=== PATIENT | male | born 1995 | race Caucasian/White ===

== ENCOUNTER 2017-11-23 19:21 | Emergency (ER) | payer OTHER ==
[~2017-11-23] VITALS: Ht 175.3 cm; Wt 110.0 kg
[~2017-11-23 19:21] MED LIST: HYDR-3126 PO
[2017-11-23 19:24] VITALS: BP 146/77; PULSE 128; TEMP 37.1; O2SAT 92; Ht 175.3 cm; Wt 110.0 kg
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
== END 2017-11-23 19:58 | disposition home or self-care (01) ==
LOC: C.EDB 19:22 → C.EDD 19:58
DX: S62.396A Other fracture of fifth metacarpal bone, right hand, initial encounter for closed fracture (principal); W22.8XXA Striking against or struck by other objects, initial encounter; Y93.89 Activity, other specified; Y99.8 Other external cause status; Z72.0 Tobacco use; Z98.818 Other dental procedure status

== ENCOUNTER 2017-11-26 01:18 | Emergency (ER) | payer OTHER ==
[~2017-11-26] VITALS: Ht 175.3 cm; Wt 109.8 kg
[2017-11-26 01:25] VITALS: TEMP 37.2; Ht 175.3 cm; Wt 109.8 kg
--- NOTE | 2017-11-26 02:32 | EMERGENCY ROOM VISIT NOTE ---
History First contact with patient: 01:24 Chief Complaint: HAND PAIN/INJURY Stated Complaint: RT HAND BROKEN - FINGERS TURNING BLACK AND BLUE History of Present Illness The patient is a 22 year old male who presents to the Emergency Room with complaints of increasing hand pain and swelling with bruising for the past day who broke his hand 2 days ago and was casted yesterday by orthopedics. Patient has not been elevating his hand. He remains increasing pain and swelling to the 4 fingers. He went to [facility]. He is unsure the orthopedic doctor that he saw. Patient states that they did not realign the fracture.he occasionally has subjective decreased sensation to the fingers but cannot feel them now okay. Patient denies new injury, loss of complete sensation, rating pain of the arm, fever, chills. He states he can move all fingers. Review of Systems A 6 system review of systems was completed with positives and pertinent negatives listed in the HPI. Past Medical/Surgical History Medical Problems: (1) Anxiety (2) Puncture wound of hand Surgical Problems: (1) [place] teeth extracted Social History Smoking Status: Current Every Day Smoker Housing Status: lives with family Occupation Status: employed Current/Historical Medications Scheduled Hydroxyzine Hcl (Atarax), 50 MG PO TID Physical Exam Vital Signs Date Time Temp Pulse Resp B/P (MAP) Pulse Ox O2 Delivery O2 Flow Rate FiO2 11/26/18 01:25 37.2 107 18 134/67 94 Room Air Physical Exam VITALS: Vitals are noted on the nurse's note and reviewed by myself. Vital signs stable. GENERAL: Pleasant male, in no acute distress, nondiaphoretic, well-developed well-nourished. SKIN: Capillary reflex less than 2 seconds. HEENT: Normocephalic. PERRLA. EOMI. Nares patent. Mucous membranes moist. MUSCULOSKELETAL: No gross musculoskeletal defects. There is no deformity of the right hand. There is tenderness over the fifth metacarpal where the fractures that. There is no thenar or hypothenar eminence atrophy. Normal thumb opposition to all fingers. Normal abduction and adduction to resistance of the fingers. There is no laceration. Capillary refill less than 3 seconds. No tenderness of the fingers or wrist. Full range of motion of the wrist. No snuff box tenderness. Radial pulse 2+. NEURO: Patient was alert and oriented to person place and time. Normal sensation to light and sharp touch. No focal neurological deficits. Medical Decision & Procedures ED Course Prior records reviewed and summarized above. Triage Nursing notes reviewed. Additional history obtained from the family. The patient's history was concerning for swelling and pain in the hand with recent fracture Differential diagnosis: Etiologies such as compartment syndrome, DVT, musculoskeletal, infection, joint effusion, trauma, lymphedema, contusion, as well as others were entertained.. Physical examination: The physical examination revealed no signs of infection. Neurovascularly intact. ER treatment provided: Cast was removed by the ct scan special procedures technologist. Full hand exam was performed as above. Patient had no signs or symptoms of compartment syndrome. He was neurovascularly intact. The cast was reapplied and neurovascular status was rechecked after placement is intact. Sling was placed. Neurovascular status is rechecked and is intact. He was advised to follow-up this week with his orthopedic doctor for a new cast and for reevaluation or here in the ER sooner for severe pain, numbness, tingling, worsening signs or symptoms or as needed. He was informed to elevate the arm. He was informed to do range of motion exercises of the arm as not to develop a frozen shoulder. On reassessment the patient felt better. Diagnostics interpreted by me: Imaging studies: Hand x-ray shows persistent fifth metacarpal fracture with improved alignment per my interpretation This appears to be consistent with right hand fracture with contusion and swelling most likely from recent injury. Patient had no signs of compartment syndrome. He was well-appearing. He was neurovascularly and neurologically intact. The cast was removed and the hand is fully inspected and then was replaced. There is no new signs of injury. Neurovascular status was rechecked after placement is intact. He was advised to follow-up this week with his orthopedic doctor for a new cast and for reevaluation or here in the ER sooner for severe pain, numbness, tingling, worsening signs or symptoms or as needed. He was informed to elevate the arm. He was informed to do range of motion exercises of the arm as not to develop a frozen shoulder. By the evaluation outlined above emergent etiologies such as DVT, septic joint, infection, as well as others were deemed relatively unlikely. The pt informed about the findings as listed above. All questions were answered and pleased with the treatment. Return instructions were outlined and the patient was discharged in stable condition. Referral: The patient was referred back to their orthopedic doctor for follow-up in 2 to 3 days for a recheck of the current condition. Medical Decision As above Medication Reconcilliation Current Medication List: was personally reviewed by me Blood Pressure Screening Patient's blood pressure: Normal blood pressure Impression Primary Impression: Contusion of right hand Additional Impression: Right hand fracture Departure Information Dispostion Home / Self-Care Condition GOOD Referrals No Doctor, Assigned (PCP) Patient Instructions My [facility] Additional Instructions DO NOT drive, drink alcohol, operate machinery, or perform dangerous activities today. You were given medications in the ER that can affect your ability to safely function or operate a vehicle. Oxycodone (OxyIR) 5mg: Take 1-2 pills every four hours for breakthrough pain. Avoid alcohol, operating machinery or dangerous equipment, working on ladders or roofs, DRIVING, or situations where being under the influence may be dangerous. It is recommended to use an [id number] stool softener such as Colace, 100mg twice daily while taking this medication to avoid constipation. Ibuprofen(Motrin, Advil) may be used for fever or pain. Use 600mg every six hours as needed. Take with food. Avoid using more than 2400mg in a 24 hour period. Do not use 2400mg per day for more than three consecutive days without physician direction. Prolonged inappropriate use can lead to stomach upset or ulcers. This medication can be taken if you need to drive, work, or perform activities which may be dangerous when taking narcotic pain medication. (AND/OR) Acetaminophen(Tylenol) may be used for fever or pain. Use 1000mg every six hours as needed. Avoid using more than 3000mg in a 24 hour period. This medication can be taken if you need to drive, work, or perform activities which may be dangerous when taking narcotic pain medication. Ice compresses for 20 minutes at a time four times daily for 2-3 days. Use the sling as instructed. Remove your arm from the sling 4-6 times a day and move all the joints around to keep them loose. Rest and elevate your injury. Do not get the splint wet. If your splint feels excessively tight, you have worsening pain, develop numbness or tingling, or your digits appear blue, loosen the hannah wrap. Then reapply the hannah wrap gently without removing the splint. If your symptoms are not quickly relieved return to the ER for re- evaluation. Continue current medications. Return to the ER immediately for any numbness, tingling, severe pain, extreme swelling in the extremity or as needed. Call your Orthopedics tomorrow to arrange follow up for your injury. Problem Qualifiers Primary Impression: Contusion of right hand Encounter type: initial encounter Qualified Codes: S60.221A - Contusion of right hand, initial encounter
[2017-11-26 02:41] VITALS: BP 128/70; PULSE 92; O2SAT 95
--- NOTE | 2017-11-26 07:38 | DIAGNOSTIC IMAGING REPORT ---
RIGHT HAND 3 VIEWS HISTORY: increasing hand pain and swelling, recent fx COMPARISON: Right hand 11/23/2017. FINDINGS: No change in the comminuted and slightly impacted fracture at the neck of the right fifth metacarpal. Soft tissue swelling at the ulnar side of the hand persists. Volar angulation of the fracture remains unchanged. Dorsal hand soft tissue swelling has slightly progressed. No radiopaque foreign bodies. IMPRESSION: No change in the comminuted, slightly impacted, and angulated fracture at the neck of the right fifth metacarpal. Dorsal soft tissue swelling has progressed. Electronically signed by: Enrique Henry M.D. 11/26/2017 7:36 AM Dictated Date/Time: 11/26/2017 7:35 AM
== END 2017-11-26 02:42 | disposition home or self-care (01) ==
LOC: C.EDB 01:20 → C.EDA 02:42
DX: S60.221A Contusion of right hand, initial encounter (principal); S62.91XA Unspecified fracture of right hand, initial encounter for closed fracture; X58.XXXA Exposure to other specified factors, initial encounter; F17.200 Nicotine dependence, unspecified, uncomplicated

== ENCOUNTER 2019-08-12 04:51 | Inpatient (IN) ==
[2019-08-12 05:24] LABS: Basophils # (auto) 0.04 K/uL (0-0.2); Basophils % (auto) 0.2 %; Eosinophils # (auto) 0.22 K/uL (0-0.5); Eosinophils % (auto) 1.2 %; Hemoglobin 15.4 g/dL (14.0-18.0); Immature Granulocytes # (auto) 0.06 K/uL (0.00-0.02); Immature Granulocytes % (auto) 0.3 %; Lymphocytes # (auto) 2.22 K/uL (1.2-3.4); Lymphocytes % (auto) 11.9 %; Mean Corpuscular Hemoglobin 30.7 pg (25-34); Mean Corpuscular Hgb Conc 34.2 g/dL (32-36); Mean Corpuscular Volume 89.6 fL (80-100); Mean Platelet Volume 9.9 fL (7.4-10.4); Monocytes # (auto) 0.69 K/uL (0.11-0.59); Monocytes % (auto) 3.7 %; Neutrophils % (auto) 82.7 %; Platelet Count 195 K/uL (130-400); RDW Standard Deviation 42.2 fL (36.4-46.3); Red Blood Count 5.02 M/uL (4.7-6.1); White Blood Count 18.63 K/uL (4.8-10.8)
[2019-08-12 05:25] LABS: iSTAT Arterial Blood Gas HCO3 26 meg/L (19-24); iSTAT Arterial Blood Gas pCO2 47 mmHg (35-46); iSTAT Arterial Blood Gas pH 7.36 (7.35-7.45); iSTAT Arterial Blood Gas pO2 68 mmHg (80-95); iSTAT Carbon Dioxide 28 mmol/L (24-31); iSTAT Hematocrit 45 % (42-52); iSTAT Hemoglobin 15.3 g/dl (14.0-18.0); iSTAT Potassium 3.4 mmol/L (3.3-5.0); iSTAT Sodium 138 mmol/L (135-144)
[2019-08-12 05:47] LABS: INR 1.1 (0.9-1.1); Prothrombin Time 11.6 Seconds (9.0-12.0)
[2019-08-12 05:51] LABS: Alanine Aminotransferase 55 U/L (12-78); Albumin Level 3.8 gm/dl (3.4-5.0); Aspartate Aminotransferase 18 U/L (15-37); BUN Creatinine Ratio 18.9 (10-20); Blood Urea Nitrogen 18 mg/dl (7-18); Calcium 8.8 mg/dl (8.5-10.1); Carbon Dioxide 28 mmol/L (21-32); Chloride 105 mmol/L (98-107); Creatinine Clr Calc Pharmacy 138.6 ml/min; Est GFR (African American) 127.9; Est GFR (Non-African American) 110.4; Glucose 188 mg/dl (70-99); Lipase 63 U/L (73-393); Magnesium 1.9 mg/dl (1.8-2.4); Potassium 3.4 mmol/L (3.5-5.1); Sodium 139 mmol/L (136-145)
[2019-08-12 05:52] LABS: Amphetamines+Metham, Urine Neg (Neg); Barbiturates, Urine Neg (Neg); Benzodiazepine, Urine Pos (Neg); Cocaine, Urine Neg (Neg); MDMA (Ecstacy), Urine Neg (Neg); Methadone, Urine Neg (Neg); Opiate, Urine Neg (Neg); Phencyclidine, Urine Neg (Neg)
[2019-08-12 05:56] LABS: Albumin Globulin Ratio 1.2 (0.9-2); Alkaline Phosphatase 70 U/L (45-117); Bilirubin,Total 0.4 mg/dl (0.2-1); Globulin 3.3 gm/dl (2.5-4.0); NT Pro B Type Natriuretic Pept 29 pg/ml (0-450); Total Protein 7.1 gm/dl (6.4-8.2); Troponin I < 0.015 ng/ml (0-0.045)
--- NOTE | 2019-08-12 06:13 | Emergency Department Note ---
Entered by Colin Gómez acting as a scribe for History of Present Illness General Chief complaint: Unresponsive Stated complaint: Overdose Time Seen by Provider: 08/12/19 05:07 Source: patient and EMS History of Present Illness Provider complaint: Overdose Onset (ago): hour(s) (Last night) Location: head Severity: similar to prior episodes Pain Consistency: + constant Associated symptoms: + nausea/vomiting The patient is a 24 year old male who presents to the Emergency Room after overdosing late last night. Per EMS, they were called by the patient's roommates after they found him unresponsive in his bed. When EMS arrived on scene the patient was tachypneic in the 40s and he was cyanotic. The patient was sating around 86% on a NRB, per EMS. The patient admits to taking a Percocet and smoking marijuana prior to the episode and per his roommates he was drinking all day. The patient has a history of depression and has made threats about harming himself, but per his roommates he said he would not act on the threats because he loves his roommates too much. The patient adds that he has recently been sick but he is progressively improving. The patient does not take any daily medications. Home Medications Home Medications Medication Instructions Recorded Confirmed Type No Known Home Medications 08/12/19 08/12/19 History Allergies Allergy/AdvReac Type Severity Reaction Status Date / Time No Known Allergies Allergy Unknown Verified 08/12/19 05:33 Past Med/Surg History Medical History Aggressive behavior Major depressive disorder Opiate dependence, continuous Puncture wound of hand (Resolved) Family History Other No pertinent family history in first degree relatives Social History Preferred Language: Setswana [employer]ceiving [employer] Operator Required: No Beliefs That Will Affect Care: None Current Living Situation: Family Feels Safe at Home: Yes Smoking Status: Current every day smoker Tobacco Type: cigarettes and e- cigarettes ; Do You Dip or Chew Tobacco: No ; Hx Alcohol Use: Yes Hx Substance Use: Yes substance use type: marijuana, opiates and unknown Last Used Substance: Just Prior to Arrival Review of Systems See HPI for pertinent positives & negatives. and A total of 10 systems reviewed and were otherwise negative Physical Exam Vital Signs Vital Signs - 24 hr 08/12/19 04:53 08/12/19 05:14 08/12/19 05:16 Temperature 98.1 F Temperature Source Rectal Pulse Rate 87 Pulse Rate [Right Finger] 92 H Pulse Rhythm Regular Pulse Rhythm [Right Finger] Regular Pulse Strength Normal Pulse Strength [Right Finger] Normal Respiratory Rate 43 H 28 H Respiratory Effort / Characteristics Spontaneous Labored Non-Labored Spontaneous Respiratory Depth Respiratory Pattern Regular Blood Pressure 139/92 Blood Pressure [Left Arm] 116/66 Blood Pressure Mean 107 Blood Pressure Mean [Left Arm] 82 Blood Pressure Position Sitting Pulse Oximetry 94 99 96 Oxygen Delivery Method Non-rebreather Non-rebreather Oxymask Oxygen Flow Rate 15 15 10 Sepsis Recent Fever Within 48 Hours No Sepsis Action Taken by Nursing No Action Required Oxygen Flow Rate - Titration 10 Pulse Oximetry Post Tiitration 98 08/12/19 05:26 08/12/19 05:45 08/12/19 06:00 Temperature Temperature Source Pulse Rate Pulse Rate [Right Finger] 94 H 89 Pulse Rhythm Pulse Rhythm [Right Finger] Regular Pulse Strength Pulse Strength [Right Finger] Normal Respiratory Rate 24 22 Respiratory Effort / Characteristics Non-Labored Spontaneous Respiratory Depth Respiratory Pattern Regular Blood Pressure Blood Pressure [Left Arm] 109/61 113/63 Blood Pressure Mean Blood Pressure Mean [Left Arm] 77 79 Blood Pressure Position Pulse Oximetry 93 93 Oxygen Delivery Method Nasal Cannula Non-rebreather Nasal Cannula Nasal Cannula Oxygen Flow Rate 10 4 4 Sepsis Recent Fever Within 48 Hours Sepsis Action Taken by Nursing Oxygen Flow Rate - Titration 4 Pulse Oximetry Post Tiitration 93 08/12/19 06:35 08/12/19 07:23 Temperature Temperature Source Pulse Rate Pulse Rate [Right Finger] 85 79 Pulse Rhythm Pulse Rhythm [Right Finger] Pulse Strength Pulse Strength [Right Finger] Respiratory Rate 20 20 Respiratory Effort / Characteristics Non-Labored Respiratory Depth Normal Respiratory Pattern Blood Pressure Blood Pressure [Left Arm] 103/66 105/61 Blood Pressure Mean Blood Pressure Mean [Left Arm] 78 75 Blood Pressure Position Pulse Oximetry 94 92 Oxygen Delivery Method Nasal Cannula Nasal Cannula Oxygen Flow Rate 4 2 Sepsis Recent Fever Within 48 Hours Sepsis Action Taken by Nursing Oxygen Flow Rate - Titration Pulse Oximetry Post Tiitration GENERAL: Somnolent but arousable, well nourished, no distress, non-toxic EYE EXAM: normal conjunctiva, PERRL and EOM's grossly intact OROPHARYNX: no exudate, no erythema, lips, buccal mucosa, and tongue normal and mucous membranes are dry NECK: supple, no nuchal rigidity, no adenopathy, non-tender LUNGS: Tachypneic. Clear to auscultation with no wheezing, rhonchi or rales. No retractions. Normal chest wall mechanics HEART: no murmurs, S1 normal and S2 normal ABDOMEN: abdomen soft, non-tender, normo-active bowel sounds, no masses, no rebound or guarding. BACK: Back is symmetrical on inspection and there is no deformity, no midline tenderness, no CVA tenderness. SKIN: no rashes and no bruising UPPER EXTREMITIES: upper extremities are grossly normal. FROM, nml pulses b/l. LOWER EXTREMITIES: No pitting edema. FROM, nml pulses b/l. NEURO EXAM: Somnolent but arousable, opens eyes to voice and answers questions, cranial nerves II-XII grossly intact, normal speech, no gross weakness of arms, no gross weakness of legs. Course Course 0451: Past medical records reviewed. The patient was evaluated in room B01, and a complete history and physical examination were performed. 0502: I performed a bedside echo which was normal. No pericardial effusion, normal EPSS. No obvious wall motion abnormality. 0518: I reevaluated the patient and his respiratory rate is down to the 20s with sats at 98%. 0522: I spoke to the patient's sister who states the patient has a history of depression and has previously made suicidal gestures. He also has a history of experimenting with drugs so she is unsure what the motive was tonight. 0602: The psych case resource manager states the sister is willing to write the petition statement. 0700: I checked on the patient and he is resting with stable vitals. 0845: I updated mother at bedside on condition and plan. She is in agreement. 0925: Discussed with [facility] hospitalist group, patient will be evaluated by Dr. Burden. Administered Medications Nicotine (Nicoderm Cq) 21 mg TD Q24H RAOUL Stop: 09/11/19 17:59 Last Admin: 08/12/19 18:23 Dose: 21 mg Documented by: [id number] Discontinued Medications Piperacillin Sod/Tazobactam Sod (Zosyn) 4.5 gm in 120 mls @ 240 mls/hr IV NOW ONE Stop: 08/12/19 06:43 Last Infusion: 08/12/19 07:52 Dose: 0 mls/hr Documented by: [id number] Admin: 08/12/19 07:22 Dose: 240 mls/hr Documented by: [id number] Sodium Chloride (Nss 1000ml) 1,000 mls @ 125 mls/hr IV .Q8H RAOUL Stop: 08/12/19 22:50 Last Infusion: 08/12/19 16:31 Dose: 0 mls/hr Documented by: [id number] Admin: 08/12/19 11:15 Dose: 125 mls/hr Documented by: [id number] Piperacillin Sod/Tazobactam (Sod 3.375 gm/ Dextrose) 115 mls @ 28.75 mls/hr IV Q8H RAOUL; Protocol Stop: 08/19/19 11:59 Last Infusion: 08/12/19 16:31 Dose: 0 mls/hr Documented by: [id number] Admin: 08/12/19 11:48 Dose: 28.8 mls/hr Documented by: [id number] Lactated Ringer's (Lr) 1,000 mls @ 125 mls/hr IV .Q8H RAOUL Stop: 08/13/19 01:29 Last Infusion: 08/13/19 07:55 Dose: 0 mls/hr Documented by: [id number] Admin: 08/13/19 00:27 Dose: 125 mls/hr Documented by: [id number] Infusion: 08/13/19 00:26 Dose: 0 mls/hr Documented by: [id number] Admin: 08/12/19 16:31 Dose: 125 mls/hr Documented by: [id number] Potassium Chloride (Klor-Con M20) 40 meq PO NOW STA Stop: 08/12/19 16:20 Last Admin: 08/12/19 16:50 Dose: 40 meq Documented by: [id number] Medical Decision Making Differential Diagnosis Differential diagnosis: Etiologies such as toxicological process, infection, hypoglycemia, electrolyte abnormalities, cardiac sources, intracerebral event, neurologic process, mood disorder, infection, hypoglycemia, electrolyte abnormalities, cardiac sources, intracerebral event, toxicologic, neurologic, as well as others. Medical Records Attestation: I reviewed the patient's medical records. Home Medications Current Medication List: was personally reviewed by me Laboratory Data Attestation: I reviewed the patient's lab results. Result diagrams: 08/13/19 07:02 08/13/19 07:02 Lab Results 08/12/19 08/12/19 08/12/19 Range/Units 05:08 05:08 05:08 WBC 18.63 H (4.8-10.8) K/uL RBC 5.02 (4.7-6.1) M/uL Hgb 15.4 (14.0-18.0) g/dL POC Hgb (14.0-18.0) g/dl Hct 45.0 (42-52) % POC Hct (42-52) % MCV 89.6 (80-100) fL MCH 30.7 (25-34) pg MCHC 34.2 (32-36) g/dL RDW Std Deviation 42.2 (36.4-46.3) fL RDW Coeff of Osiel 13.0 (11.5-14.5) % Plt Count 195 (130-400) K/uL MPV 9.9 (7.4-10.4) fL Immature Gran % (Auto) 0.3 % Neut % (Auto) 82.7 % Lymph % (Auto) 11.9 % [place]rie % (Auto) 3.7 % Eos % (Auto) 1.2 % Baso % (Auto) 0.2 % Immature Gran # (Auto) 0.06 H (0.00-0.02) K/uL Neut # (Auto) 15.40 H (1.4-6.5) K/uL Lymph # (Auto) 2.22 (1.2-3.4) K/uL [place]rie # (Auto) 0.69 H (0.11-0.59) K/uL Eos # (Auto) 0.22 (0-0.5) K/uL Baso # (Auto) 0.04 (0-0.2) K/uL PT (9.0-12.0) Seconds INR (0.9-1.1) POC pH (7.35-7.45) POC pCO2 (35-46) mmHg POC pO2 (80-95) mmHg POC HCO3 (19-24) daniela/L POC Total CO2 (24-31) mmol/L POC Base Excess (-9-1.8) daniela/L POC Sodium (135-144) mmol/L Sodium 139 (136-145) mmol/L POC Potassium (3.3-5.0) mmol/L Potassium 3.4 L (3.5-5.1) mmol/L Chloride 105 (98-107) mmol/L Carbon Dioxide 28 (21-32) mmol/L Anion Gap 6.0 (3-11) BUN 18 (7-18) mg/dl Creatinine 0.97 (0.6-1.4) mg/dl Est Cr Clr Drug Dosing 138.6 ml/min Est GFR ( Amer) 127.9 Est GFR (Non-Af Amer) 110.4 BUN/Creatinine Ratio 18.9 (10-20) Glucose 188 H (70-99) mg/dl Calcium 8.8 (8.5-10.1) mg/dl Magnesium 1.9 (1.8-2.4) mg/dl Total Bilirubin 0.4 (0.2-1) mg/dl AST 18 (15-37) U/L ALT 55 (12-78) U/L Alkaline Phosphatase 70 (45-117) U/L Troponin I < 0.015 (0-0.045) ng/ml NT-Pro-B Natriuret Pep 29 (0-450) pg/ml Total Protein 7.1 (6.4-8.2) gm/dl Albumin 3.8 (3.4-5.0) gm/dl Globulin 3.3 (2.5-4.0) gm/dl Albumin/Globulin Ratio 1.2 (0.9-2) Lipase 63 L (73-393) U/L Salicylates 2.2 L (2.8-20) mg/dl Urine Opiates Screen (Neg) Ur Methadone, Qual (Neg) Acetaminophen < 2 L (10-30) ug/ml Urine Barbiturates (Neg) Ur Phencyclidine (PCP) (Neg) U Amphetamin/Meth Scrn (Neg) MDMA (Ecstasy) Screen (Neg) U Benzodiazepines Scrn (Neg) Ur Cocaine Metabolite (Neg) U Marijuana (THC) Screen (Neg) Ethyl Alcohol mg/dL (0-3) mg/dl 08/12/19 08/12/19 08/12/19 Range/Units 05:08 05:08 05:09 WBC (4.8-10.8) K/uL RBC (4.7-6.1) M/uL Hgb (14.0-18.0) g/dL POC Hgb 15.3 (14.0-18.0) g/dl Hct (42-52) % POC Hct 45 (42-52) % MCV (80-100) fL MCH (25-34) pg MCHC (32-36) g/dL RDW Std Deviation (36.4-46.3) fL RDW Coeff of Osiel (11.5-14.5) % Plt Count (130-400) K/uL MPV (7.4-10.4) fL Immature Gran % (Auto) % Neut % (Auto) % Lymph % (Auto) % Guthrie % (Auto) % Eos % (Auto) % Baso % (Auto) % Immature Gran # (Auto) (0.00-0.02) K/uL Neut # (Auto) (1.4-6.5) K/uL Lymph # (Auto) (1.2-3.4) K/uL [place]rie # (Auto) (0.11-0.59) K/uL Eos # (Auto) (0-0.5) K/uL Baso # (Auto) (0-0.2) K/uL PT 11.6 (9.0-12.0) Seconds INR 1.1 (0.9-1.1) POC pH 7.36 (7.35-7.45) POC pCO2 47 H (35-46) mmHg POC pO2 68 L (80-95) mmHg POC HCO3 26 H (19-24) daniela/L POC Total CO2 28 (24-31) mmol/L POC Base Excess 1.0 (-9-1.8) daniela/L POC Sodium 138 (135-144) mmol/L Sodium (136-145) mmol/L POC Potassium 3.4 (3.3-5.0) mmol/L Potassium (3.5-5.1) mmol/L Chloride (98-107) mmol/L Carbon Dioxide (21-32) mmol/L Anion Gap (3-11) BUN (7-18) mg/dl Creatinine (0.6-1.4) mg/dl Est Cr Clr Drug Dosing ml/min Est GFR ( Amer) Est GFR (Non-Af Amer) BUN/Creatinine Ratio (10-20) Glucose (70-99) mg/dl Calcium (8.5-10.1) mg/dl Magnesium (1.8-2.4) mg/dl Total Bilirubin (0.2-1) mg/dl AST (15-37) U/L ALT (12-78) U/L Alkaline Phosphatase (45-117) U/L Troponin I (0-0.045) ng/ml NT-Pro-B Natriuret Pep (0-450) pg/ml Total Protein (6.4-8.2) gm/dl Albumin (3.4-5.0) gm/dl Globulin (2.5-4.0) gm/dl Albumin/Globulin Ratio (0.9-2) Lipase (73-393) U/L Salicylates (2.8-20) mg/dl Urine Opiates Screen (Neg) Ur Methadone, Qual (Neg) Acetaminophen (10-30) ug/ml Urine Barbiturates (Neg) Ur Phencyclidine (PCP) (Neg) U Amphetamin/Meth Scrn (Neg) MDMA (Ecstasy) Screen (Neg) U Benzodiazepines Scrn (Neg) Ur Cocaine Metabolite (Neg) U Marijuana (THC) Screen (Neg) Ethyl Alcohol mg/dL < 3.0 (0-3) mg/dl 08/12/19 Range/Units 05:10 WBC (4.8-10.8) K/uL RBC (4.7-6.1) M/uL Hgb (14.0-18.0) g/dL POC Hgb (14.0-18.0) g/dl Hct (42-52) % POC Hct (42-52) % MCV (80-100) fL MCH (25-34) pg MCHC (32-36) g/dL RDW Std Deviation (36.4-46.3) fL RDW Coeff of Osiel (11.5-14.5) % Plt Count (130-400) K/uL MPV (7.4-10.4) fL Immature Gran % (Auto) % Neut % (Auto) % Lymph % (Auto) % Guthrie % (Auto) % Eos % (Auto) % Baso % (Auto) % Immature Gran # (Auto) (0.00-0.02) K/uL Neut # (Auto) (1.4-6.5) K/uL Lymph # (Auto) (1.2-3.4) K/uL Guthrie # (Auto) (0.11-0.59) K/uL Eos # (Auto) (0-0.5) K/uL Baso # (Auto) (0-0.2) K/uL PT (9.0-12.0) Seconds INR (0.9-1.1) POC pH (7.35-7.45) POC pCO2 (35-46) mmHg POC pO2 (80-95) mmHg POC HCO3 (19-24) daniela/L POC Total CO2 (24-31) mmol/L POC Base Excess (-9-1.8) daniela/L POC Sodium (135-144) mmol/L Sodium (136-145) mmol/L POC Potassium (3.3-5.0) mmol/L Potassium (3.5-5.1) mmol/L Chloride (98-107) mmol/L Carbon Dioxide (21-32) mmol/L Anion Gap (3-11) BUN (7-18) mg/dl Creatinine (0.6-1.4) mg/dl Est Cr Clr Drug Dosing ml/min Est GFR ( Amer) Est GFR (Non-Af Amer) BUN/Creatinine Ratio (10-20) Glucose (70-99) mg/dl Calcium (8.5-10.1) mg/dl Magnesium (1.8-2.4) mg/dl Total Bilirubin (0.2-1) mg/dl AST (15-37) U/L ALT (12-78) U/L Alkaline Phosphatase (45-117) U/L Troponin I (0-0.045) ng/ml NT-Pro-B Natriuret Pep (0-450) pg/ml Total Protein (6.4-8.2) gm/dl Albumin (3.4-5.0) gm/dl Globulin (2.5-4.0) gm/dl Albumin/Globulin Ratio (0.9-2) Lipase (73-393) U/L Salicylates (2.8-20) mg/dl Urine Opiates Screen Neg (Neg) Ur Methadone, Qual Neg (Neg) Acetaminophen (10-30) ug/ml Urine Barbiturates Neg (Neg) Ur Phencyclidine (PCP) Neg (Neg) U Amphetamin/Meth Scrn Neg (Neg) MDMA (Ecstasy) Screen Neg (Neg) U Benzodiazepines Scrn Pos H (Neg) Ur Cocaine Metabolite Neg (Neg) U Marijuana (THC) Screen Pos H (Neg) Ethyl Alcohol mg/dL (0-3) mg/dl Imaging Data My Impression: X-ray: I interpreted the following studies. Chest: A single view study of the chest was reviewed and was negative for cardiomegaly, focal infiltrate, effusion, or wide mediastinum. Patient does appear to have pulmonary edema bilaterally, worse on the left. ECG Data Attestation: I personally reviewed and interpreted this ECG as follows: Indication: + toxicologic Rate (beats per minute): 85 Rhythm: + normal sinus ECG Intervals/blocks: + Normal QRS, + Normal RI and + Normal QT-c ECG [place]: + Normal ECG Findings: no PACs and no PVCs Blood Pressure Blood Pressure Findings: Normal blood pressure MDM Narrative Patient brought in as an overdose, initially unclear if this was intentional or accidental. Patient does have a prior history of depression and suicidal gestures, however also has a history of recreational drug abuse. As more information came to light, we were more suspicious of an intentional overdose. Patient sister wrote a 302 petitioning statement. Patient's labs sent, urine sample sent, chest x-ray performed. Patient was initially tachypneic however saturations on the nonrebreather were at 96%. Patient was slowly and carefully weaned down off the nonrebreather and then down to a nasal cannula and maintain his oxygen saturations in the mid 90s. Patient's tachypnea slowly resolve spontaneously. Patient was otherwise hemodynamically stable. Patient did have the appearance of pulmonary edema on the chest x-ray, no evidence of focal consolidation or aspiration. Due to unknown potential hypoxia, as well as administration of Narcan by law enforcement which could have contributed to pulmonary edema, I felt patient should be monitored as an inpatient due to his pulmonary edema and initial respiratory distress. I do not suspect cardiac etiology, and my bedside echo performed initially was unremarkable. I do not suspect other occult infectious or metabolic etiology. Patient's urine drug screen was positive for multiple substances. Patient had a non-focal neuro exam at bedside and I do not suspect other acute MACHINE PAN GREASER pathology. Patient was placed o n a one-to-one, however will be admitted medically prior to ongoing psychiatric treatment Impression & Plan Unresponsive episode, Overdose, Substance abuse Discharge Plan Visit Data *Final* Discharge Date/Time: 08/12/19 10:13 Chief Complaint: Unresponsive Stated Complaint: Overdose ED Provider: Karine Dailey Discharge Problem: Unresponsive episode, Overdose, Substance abuse Patient Disposition: Admitted As Inpatient Condition: Fair Discharge Instructions Interventions: ED Discharge Assessment Last Done: 08/12/19 10:13 Discharge Problem: Overdose Qualifiers: Encounter type: initial encounter Injury intent: intentional self-harm Qualified Code(s): T50.902A - Poisoning by unspecified drugs, medicaments and biological substances, intentional self-harm, initial encounter The scribe's documentation has been prepared under my direction and personally reviewed by me in its entirety. I confirm that the note above accurately reflects all work, treatment, procedures, and medical decision making performed by me.
[2019-08-12] MEDS ORDERED: PIPERACILL/TAZOBAC CONSULT ACTIVE PRN (06:14)
[2019-08-12] MEDS ORDERED: PIPERACILLIN/TAZOBACTAM 4.5 GM/120 ML BAG IV ONE (06:14)
[2019-08-12 06:20] LABS: Acetaminophen < 2 ug/ml (10-30); Salicylate 2.2 mg/dl (2.8-20)
--- NOTE | 2019-08-12 08:21 | XRay Report ---
XR chest 1V portable HISTORY: Shortness of breath. COMPARISON: None. FINDINGS: There are low lung volumes. No pleural effusions. No pneumothorax. The heart is normal in s ize. There is left greater than right interstitial and vascular thickening. There is also hazy appear ance to the left lung. No rib fractures. IMPRESSION: Left greater than right interstitial and vascular thickening as well as a hazy appearance to the left lung. This could represent asymmetric pulmonary edema or pneumonia. ACT 112: Negative or not required by law. Electronically signed by: Enrique Henry M.D. 08/12/2019 8:19 AM
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
[2019-08-12] MEDS ORDERED: ACETAMINOPHEN 325 MG TAB PO PRN (10:51)
[2019-08-12] MEDS ORDERED: SODIUM CHLORIDE 0.9% 1000ML 1,000 ML IV SCH (10:51)
[2019-08-12] MEDS ORDERED: ONDANSETRON INJ 2 MG/ML 2 ML VIAL IV PRN (10:51)
[2019-08-12] MEDS ORDERED: INFLUENZA VIRUS QUAD VACCINE 0.5 ML SYR IM ONE (11:08)
[2019-08-12] MEDS ORDERED: INFLUENZA ADMINISTRATION CHARGE ONE (11:08)
[2019-08-12] MEDS ORDERED: PIPERACILLIN/TAZOBACTAM 3.375 GM in DEXTROSE 5% 100 ML IV SCH (12:00)
--- NOTE | 2019-08-12 13:55 | Psychiatric Progress Note ---
Date of Service August 12, 2019 Interval History Chief Complaint s/p overdose Subjective Subjective Liaison attempted to see patient but he was not able to awaken to provide meaningful history. Will reattempt later this pm. Patient last seen on our service in December 2017 and at that time had depression with SI to jump from a roof and endorsed a hx of percocet abuse. He should be evaluated/cleared by psych hector or to discharge. If awakens and assists on leaving, please use 302 petitioning statement by sister (reported) to have county issue a warrant to hold him on medical floor until cleared. Physical Exam Vital Signs (Past 24 Hours) Last Vital Signs Temp 36.7 C 08/12/19 10:52 Pulse 60 08/12/19 10:52 Resp 14 08/12/19 10:52 BP 117/66 08/12/19 10:52 Pulse Ox 96 08/12/19 10:52 Results & Data Laboratory Results Laboratory Results - last 24 hr 08/12/19 08/12/19 08/12/19 05:08 05:08 05:08 WBC 18.63 H RBC 5.02 Hgb 15.4 POC Hgb Hct 45.0 POC Hct MCV 89.6 MCH 30.7 MCHC 34.2 RDW Std Deviation 42.2 RDW Coeff of Osiel 13.0 Plt Count 195 MPV 9.9 Immature Gran % (Auto) 0.3 Neut % (Auto) 82.7 Lymph % (Auto) 11.9 Montague % (Auto) 3.7 Eos % (Auto) 1.2 Baso % (Auto) 0.2 Immature Gran # (Auto) 0.06 H Neut # (Auto) 15.40 H Lymph # (Auto) 2.22 Montague # (Auto) 0.69 H Eos # (Auto) 0.22 Baso # (Auto) 0.04 PT INR POC pH POC pCO2 POC pO2 POC HCO3 POC Total CO2 POC Base Excess POC Sodium Sodium 139 POC Potassium Potassium 3.4 L Chloride 105 Carbon Dioxide 28 Anion Gap 6.0 BUN 18 Creatinine 0.97 Est Cr Clr Drug Dosing 138.6 Est GFR ( Amer) 127.9 Est GFR (Non-Af Amer) 110.4 BUN/Creatinine Ratio 18.9 Glucose 188 H Calcium 8.8 Magnesium 1.9 Total Bilirubin 0.4 AST 18 ALT 55 Alkaline Phosphatase 70 Troponin I < 0.015 NT-Pro-B Natriuret Pep 29 Total Protein 7.1 Albumin 3.8 Globulin 3.3 Albumin/Globulin Ratio 1.2 Lipase 63 L Salicylates 2.2 L Urine Opiates Screen Ur Methadone, Qual Acetaminophen < 2 L Urine Barbiturates Ur Phencyclidine (PCP) U Amphetamin/Meth Scrn MDMA (Ecstasy) Screen U OH-Alprazolam Confrm U Benzodiazepines Scrn 7-Amino Clonazepam Ur Nordiazepam Confirm U OH-ethylflurazepam U Lorazepam Cnf GC/MS U Oxazepam Confm GC/MS Ur Temazepam Confirm U OH-Triazolam Confirm U OH-Midazolam Confirm Ur Cocaine Metabolite U Marijuana (THC) Screen U Marijuana THC Carboxy Drug Screen Comment Ethyl Alcohol mg/dL 08/12/19 08/12/19 08/12/19 05:08 05:08 05:09 WBC RBC Hgb POC Hgb 15.3 Hct POC Hct 45 MCV MCH MCHC RDW Std Deviation RDW Coeff of Osiel Plt Count MPV Immature Gran % (Auto) Neut % (Auto) Lymph % (Auto) Montague % (Auto) Eos % (Auto) Baso % (Auto) Immature Gran # (Auto) Neut # (Auto) Lymph # (Auto) Montague # (Auto) Eos # (Auto) Baso # (Auto) PT 11.6 INR 1.1 POC pH 7.36 POC pCO2 47 H POC pO2 68 L POC HCO3 26 H POC Total CO2 28 POC Base Excess 1.0 POC Sodium 138 Sodium POC Potassium 3.4 Potassium Chloride Carbon Dioxide Anion Gap BUN Creatinine Est Cr Clr Drug Dosing Est GFR ( Amer) Est GFR (Non-Af Amer) BUN/Creatinine Ratio Glucose Calcium Magnesium Total Bilirubin AST ALT Alkaline Phosphatase Troponin I NT-Pro-B Natriuret Pep Total Protein Albumin Globulin Albumin/Globulin Ratio Lipase Salicylates Urine Opiates Screen Ur Methadone, Qual Acetaminophen Urine Barbiturates Ur Phencyclidine (PCP) U Amphetamin/Meth Scrn MDMA (Ecstasy) Screen U OH-Alprazolam Confrm U Benzodiazepines Scrn 7-Amino Clonazepam Ur Nordiazepam Confirm U OH-ethylflurazepam U Lorazepam Cnf GC/MS U Oxazepam Confm GC/MS Ur Temazepam Confirm U OH-Triazolam Confirm U OH-Midazolam Confirm Ur Cocaine Metabolite U Marijuana (THC) Screen U Marijuana THC Carboxy Drug Screen Comment Ethyl Alcohol mg/dL < 3.0 08/12/19 08/12/19 05:10 05:10 WBC RBC Hgb POC Hgb Hct POC Hct MCV MCH MCHC RDW Std Deviation RDW Coeff of Osiel Plt Count MPV Immature Gran % (Auto) Neut % (Auto) Lymph % (Auto) Montague % (Auto) Eos % (Auto) Baso % (Auto) Immature Gran # (Auto) Neut # (Auto) Lymph # (Auto) Montague # (Auto) Eos # (Auto) Baso # (Auto) PT INR POC pH POC pCO2 POC pO2 POC HCO3 POC Total CO2 POC Base Excess POC Sodium Sodium POC Potassium Potassium Chloride Carbon Dioxide Anion Gap BUN Creatinine Est Cr Clr Drug Dosing Est GFR ( Amer) Est GFR (Non-Af Amer) BUN/Creatinine Ratio Glucose Calcium Magnesium Total Bilirubin AST ALT Alkaline Phosphatase Troponin I NT-Pro-B Natriuret Pep Total Protein Albumin Globulin Albumin/Globulin Ratio Lipase Salicylates Urine Opiates Screen Neg Ur Methadone, Qual Neg Acetaminophen Urine Barbiturates Neg Ur Phencyclidine (PCP) Neg U Amphetamin/Meth Scrn Neg MDMA (Ecstasy) Screen Neg U OH-Alprazolam Confrm Pending U Benzodiazepines Scrn Pos H 7-Amino Clonazepam Pending Ur Nordiazepam Confirm Pending U OH-ethylflurazepam Pending U Lorazepam Cnf GC/MS Pending U Oxazepam Confm GC/MS Pending Ur Temazepam Confirm Pending U OH-Triazolam Confirm Pending U OH-Midazolam Confirm Pending Ur Cocaine Metabolite Neg U Marijuana (THC) Screen Pos H U Marijuana THC Carboxy Pending Drug Screen Comment Pending Ethyl Alcohol mg/dL Current Inpatient Medications Current Inpatient Medications: Current Inpatient Medications Acetaminophen (Tylenol) 650 mg PO Q4H PRN PRN Reason: Moderate Pain Stop: 09/11/19 10:50 Sodium Chloride (Nss 1000ml) 1,000 mls @ 125 mls/hr IV .Q8H [facility] Stop: 08/12/19 22:50 Last Admin: 08/12/19 11:15 Dose: 125 mls/hr Documented by: Piperacillin Sod/Tazobactam (Sod 3.375 gm/ Dextrose) 115 mls @ 28.75 mls/hr IV Q8H [facility]; Protocol Stop: 08/19/19 11:59 Last Admin: 08/12/19 11:48 Dose: 28.8 mls/hr Documented by: Miscellaneous Information (Consult) 1 ea N/A UD PRN PRN Reason: Consult Stop: 09/11/19 06:13 Ondansetron HCl (Zofran) 4 mg IV Q4H PRN PRN Reason: Nausea And Vomiting Stop: 09/11/19 10:50
[2019-08-12] MEDS ORDERED: POTASSIUM CHLORIDE 20 MEQ TABCR PO STA (16:19)
[2019-08-12] MEDS: LACTATED RINGER'S 1,000 ML IV SCH (16:31)
[2019-08-12] MEDS ORDERED: NICOTINE 21 MG/24 HR TDSY TD SCH (18:00)
--- NOTE | 2019-08-12 22:09 | Electrocardiogram Report ---
Test Reason : Blood Pressure : / mmHG Vent. Rate : 085 BPM Atrial Rate : 085 BPM P-R Int : 174 ms QRS Dur : 100 ms QT Int : 342 ms P-R-T Axes : 066 083 060 degrees QTc Int : 406 ms Normal sinus rhythm Normal ECG No previous ECGs available Confirmed by Sin Florian ([id number]) on 08/12/2019 10:09:45 PM Referred By: REFERRED SELF Confirmed By:Sin Florian
[2019-08-13] MEDS: LACTATED RINGER'S 1,000 ML IV SCH (00:27)
[2019-08-13 07:54] LABS: BUN Creatinine Ratio 11.8 (10-20); Blood Urea Nitrogen 9 mg/dl (7-18); Calcium 9.1 mg/dl (8.5-10.1); Carbon Dioxide 30 mmol/L (21-32); Chloride 108 mmol/L (98-107); Creatinine Clr Calc Pharmacy 179.1 ml/min; Est GFR (African American) > 150.0; Est GFR (Non-African American) 129.5; Glucose 96 mg/dl (70-99); Potassium 3.8 mmol/L (3.5-5.1); Sodium 142 mmol/L (136-145)
[2019-08-13 08:08] LABS: Hematocrit (blood only) 43.3 % (42-52); Hemoglobin 14.4 g/dL (14.0-18.0); Mean Corpuscular Hemoglobin 29.6 pg (25-34); Mean Corpuscular Hgb Conc 33.3 g/dL (32-36); Mean Corpuscular Volume 89.1 fL (80-100); Mean Platelet Volume 10.1 fL (7.4-10.4); Platelet Count 183 K/uL (130-400); RDW Coefficient of Variation 12.9 % (11.5-14.5); Red Blood Count 4.86 M/uL (4.7-6.1); White Blood Count 7.43 K/uL (4.8-10.8)
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
--- NOTE | 2019-08-13 13:31 | Discharge Summary ---
Date of Service August 13, 2019 Admission HPI Per Admitting Provider This is a 24 yo M with significant psych history who presents with acute overdose. The patients mother is present at bedside who supplies the majority of the history. She notes that her daughter, the patient and grandmother live together in an apartment in [place]. She does not live with them. Per her daughter, the patient was with daughter at a libertarian last evening in [facility], partying. His alcohol level is negative and he himself denies during the interview that he was actually drinking. They were concerned that he was intoxicated and that he was more so out of it than normal when he would drink at baseline. Late in the morning the patient went into a different room, unwitnessed, and the daughter heard clashing around then went to check on the patient. He was found unresponsive on the ground with cyanotic lips and fingertips. Once the patient was here he was in significant respiratory distress where he was borderline needing to be intubated, patient was placed on a nonrebreather at 15 L with sats in the low 90s. He slowly has been able to be weaned down from this level of oxygen and is currently on 2 L via NC at bedside. The patient initially was tachycardic however heart rate now sits in the mid 60s. It is unknown to the mother or daughter if this was intentional or not. The patient was seen and examined this morning. Patient reports feeling well admits that he took half a "perky" smoked 2 bowls of marijuana, then took the other half last evening. He denies drinking alcohol. Mother is concerned that he may not have taken an actual Percocet, but rather was mixed up with a different drug. He feels tired, sweaty, but overall comfortable at this point. He denies any pain. Notes he was nauseous earlier and vomited once. He denies any issues with chest pain or breathing at this time. Significant psychiatric history: One known prior suicide attempt 1 year ago, December 2017, where the patient was standing at the top of a parking garage roof and had to be talked down from jumping. He was admitted to here for several days. Pt has significant drug use history which began at age 10-11. Patient has been using opioids (oral percocet) on and off as well as marijuana throughout his life since that point. He has previously been incarcerated at a juvenile long term facility, [facility] for one year when he was 18 yo for crimes including destruction of property and theft. Mother reports anger outbursts when he is very stressed, she denies homicidal ideations. Most recently seen by [facility] in [place], [place] in 2018 for suboxone therapy, which he did for 3 to 4 months however did not like the way it made him feel therefore quit therapy. He does not follow with psychiatry or counselor as an outpatient. Highest level of Edu: completed high school and one year of college, but is no longer a student at [employer]. Employment: Works full-time at [employer] in [employer]. Does not have insurance. Mother currently without insurance but has filed application to get it. Discharge Data Allergies Allergy/AdvReac Type Severity Reaction Status Date / Time No Known Allergies Allergy Unknown Verified 08/12/19 05:33 Consultations 08/12/19 08:46 ED Decision to Admit Stat 08/12/19 10:51 Consult Case Management - Discharge Planning Routine Consult Psychiatry Routine Hospital Course (1) Unresponsive episode: -Admit to tele -patient was initially thought to require intubation, was placed on nonrebreather at 15 L, but has been titrated down to NC 2 L with O2 sats =95%. ABG completed initially, pCO2= 47, PpO2= 68, HCo3=26 -Patient admits to using Percocet, smoking marijuana last evening -Urine tox screen positive for benzos, marijuana. Negative opiate and negative etoh. Will require more questioning when the patient is more awake/mother not at bedside -WBC elevated at 18.63, monitor with am cbc -Continue IV Zosyn with episode of vomiting to r/o aspiration. -CXR with pulmonary edema, ? inflammatory, left side appears more affected than the right by my eval. Consider follow up tomorrow pending course. -Continue on IV fluids x 1 day. -One-to-one ordered -Psych consult (2) History of suicidal ideation: (3) Major depressive disorder: - Not on any medication - Does not follow with any outpatient psych/counselor - will need to establish prior to discharge (4) Opiate dependence, continuous: - Percocet, ? benzo use - Ongoing since age 10-11 (5) Aggressive behavior: - Hx of such (6) Tobacco abuse: - Sounds like the pt smokes 1ppd, will order nicotine patch prn (7) DVT prophylaxis: -teds CODE: Full Dispo: Admit to tele, d/c to inpatient psych likely within 24 hrs. Discharge Plan Discharge Items Patient Disposition: Home - Self-Care Reason For Visit: UNRESPONSIVE, OVERDOSE Discharge Diagnosis: unresponsive non-breathing episode related to drug use Condition on Discharge: Fair Activity: Resume your previous activity Exercise/Sports: Gradually increase as tolerated Driving/Machine Use: No limitations Non-emergency contact: Primary Care Provider Call non-emergency contact if: you have any medication questions Follow-up/Referrals: Vicky Coffman PA-C [Primary Care Provider] - Diet: Regular Addtl Attending Provider Instructions: you need to see counselor/therapist you need to see a psychiatrist who can officially rule in or rule out bipolar disorder and then start you on appropriate medications you need to go to recovery meeting and remain substance free remain tobacco free. use over the counter nicotine products to help you Pending Studies at Discharge: No Stand-Alone Forms: My [facility] Channel M, Smoking Cessation Medications and DC Order Prescriptions: New Narcan 4 mg/actuation spray,non-aerosol 1 sprays INTNAS ONCE PRN (Reason: opioid overdose) Qty: 2 RF: 1 No Action No Known Home Medications RF: 0 Discharge Orders: Discharge Order (Routine); Ordered 08/13/19 Ordered By: Zoe Whelan/Other Patient Handouts: Depression Know Signs Sx, Addiction Get Help, Suicide Warning Signs Self, Naloxone Hydrochloride Nasal spray solution Admission Data Admit Date/Time: 08/12/19 09:20 Attending Provider: Zoe Amaya Admit Provider: Zoe Amaya Primary Care Provider: Vicky Coffman Other Providers: Zoe Amaya ; Leydi Figueroa Other Interventions: Discharge Summary Assessment (RN) Last Done: 08/13/19 13:08 Supervising Physician Co-Signing Physician Notes 24yoWM interviewed and examined at 4pm. Sister, friend and 1:1 sitter at bedside. I have reviewed and agree with note/plan outlined by Alicia Wang PA-C. 24yo WM p/w unresponsive episode and acute respiratory failure w/ cyanosis and almost required mechanical ventilation. Unlike at presentation, he is now awake, minimally somnalent, cooperative and pleasant. He denies any suicidal thoughts/attempts with this event. he has depression and anxiety. he describes intermittent episodes of what could be interpreted as manic episodes (last episode likely more than a year ago). would be reluctant to start anti- depressant before ruling out bipolar disorder or instituting a mood stabilizing med. he smoked cannabis and took a "blue pill" he bought from a friend of a friend that he was told was a really strong percocet. He claims he just wanted to have a good time. he claims to have no other pills. no access to firearms. Constitutional: No distress. HENT: Mouth/Throat: Oropharynx is clear and moist. Eyes: Conjunctivae are normal. No scleral icterus. Cardiovascular: Normal RRR and normal heart sounds. No murmur heard. no gallop and no friction rub. Pulmonary/Chest: Effort normal and breath sounds normal. No respiratory distress. no wheezing no rales. Abdominal: Soft. Bowel sounds are normal. no distension. There is no tenderness. Musculoskeletal: no deformity. Neurological: alert and oriented. no focal deficits. Skin: Skin is warm and dry. Psychiatric: Mood is slightly withdrawn. affect appropriate A/P: acute unresponsive episode acute hypoxic respiratory failure w/ cyanosis r/o suicidal ideations polysubstance abuse ... TCH, benzo, and possibly opiate ... prior opiate addiction major depression ... r/o bipolar disorder tobacco abuse 1:1 sitter psychiatry evaluation consider mood stabilizing med consider anti-depression outpt psychotherapy Coding Diagnoses Unresponsive episode R41.89 History of suicidal ideation Z86.59 Major depressive disorder F32.9 Opiate dependence, continuous F11.20 Aggressive behavior R46.89 Tobacco abuse Z72.0 DVT prophylaxis Z29.9
[2019-08-16 00:55] LABS: 7-Aminoclonaz, Confirm NEGATIVE ng/mL (<25); Hydro-Alp Ur, GC/MS NEGATIVE ng/mL (<25); Hydroxyethylflurazepam, Conf NEGATIVE ng/mL (<50); Hydroxytriazolam NEGATIVE ng/mL (<50); Lorazepam, Ur GC/MS NEGATIVE ng/mL (<50); Marijuana Quant, GCMS Urine >5000 ng/mL (<5); Nordiazepam, Confirm NEGATIVE ng/mL (<50); Oxazepam Ur, GC/MS >2000 ng/mL (<50); Temazepam, Confirm >2000 ng/mL (<50)
== END 2019-08-13 13:20 | disposition home or self-care (01) | DRG 918 ==
LOC: ED 04:51 → 2E 09:20

== ENCOUNTER 2022-03-18 16:10 | Inpatient (IN) ==
[~2022-03-18 16:10] MED LIST changes: -HYDR-3126 PO; +MIDAZOLAM HCL 5 MG/ML VIAL IV ONE; +ROCURONIUM BROMIDE 10 MG/ML 5 ML VIAL IV ONE
[2022-03-18] MEDS ORDERED: diphenhydrAMINE 50 MG/ML VIAL ONE (16:32)
[2022-03-18] MEDS ORDERED: LORazepam 2 MG/1 ML VIAL ONE ×3 (16:32→16:51)
[2022-03-18] MEDS ORDERED: HALOPERIDOL LACTATE 5 MG/ML 1 ML VIAL ONE ×2 (16:33→16:38)
[2022-03-18] MEDS ORDERED: RAPID SEQUENCE INDUCTION BAG ONE (16:47)
[2022-03-18] MEDS ORDERED: LORAZEPAM 2 MG/ML IV ONE (16:51)
[2022-03-18] MEDS ORDERED: PROPOFOL IV EMULSION 10 MG/ML 100 ML VIAL IV ONE (17:06)
[2022-03-18] MEDS: propofoL 1,000 MG/100 ML VIAL IV SCH ×2 (17:13→20:16)
[2022-03-18] MEDS ORDERED: STAT IV Infusion **Titration per Protocol STA ×2 (17:22→18:34)
[2022-03-18 17:29] LABS: iSTAT Creatinine 0.7 mg/dl (0.6-1.3); iSTAT Hemoglobin 15.6 g/dl (14.0-18.0); iSTAT Ionized Calcium 1.15 mmol/l (1.12-1.32); iSTAT Potassium 3.5 mmol/L (3.3-5.0)
--- NOTE | 2022-03-18 17:30 | Critical Care Consultation ---
Date of Consultation March 18, 2022 Assessment & Plan (1) Intentional overdose: Reason Critically Ill: 26-year-old male with significant history for mental health disorder as well as prior suicidal ideation with attempt who presents with acute polysubstance overdose with intent of self-harm PLAN: Neuro: Acute encephalopathy -Sedation: Propofol and Versed -Analgesia: Fentanyl Intentional drug overdose with intent of self-harm -Emergency department contacted poison control Mood disorder -Significantly subtherapeutic lithium level Polysubstance overdose Marijuana positive Resp: Intubated for medical work-up -Ventilator settings reviewed CV: Tachycardia -Likely physiologic response Fluids/Renal: No evidence of high gap metabolic acidosis ID: No indication for antibiotics at this time GI/Nutrition: 100 g activated charcoal with sorbitol -OG tube in place Heme: DVT prophylaxis: Lovenox 40 mg subcu Endocrine: ICU hyperglycemia protocol Vascular access: Peripheral IVs Code Status: Full code Disposition: ICU (2) Polysubstance overdose: (3) History of suicidal ideation: (4) Acute encephalopathy: History of Present Illness Reason for Consultation: intentinoal drug overdose with intent to harm Requesting Physician: Gilson Deluna History of Present Illness Patient is a 26-year-old male who was brought into the emergency department for altered mental status and intentional drug overdose. History is obtained from prior records and the patient's sister who later presented to bedside. Patient reportedly had a romantic relationship which dissolved and this caused significant distress prompting the patient to take an overdose of his prescribed medication. It is believed he took approximately 20 tablets of his 20 mg olanzapine. He does not believe the patient took additional lithium. Patient's sister did think he took most of his lorazepam. Reportedly the patient has tried to hang himself and has attempted an additional drug overdose in the past. Upon presentation to the ED he became combative requiring four-point restraints and intubation to facilitate medical evaluation. Exact time of ingestion is unclear. Sister reports that he does consume marijuana and has a reported medical marijuana card. She denies current nor history of IV drug abuse During my evaluation the patient has been intubated and is sedated. Allergies Allergy/AdvReac Type Severity Reaction Status Date / Time No Known Allergies Allergy Unknown Verified 01/02/20 03:56 Home Medications Medication Instructions Recorded Confirmed Type olanzapine 20 mg tablet (Zyprexa) 20 mg PO DAILY #14 tabs 01/27/22 03/18/22 Rx Patient History Medical History Aggressive behavior Major depressive disorder Opiate dependence, continuous Puncture wound of hand Surgical History Surgical history unknown Family History Other No pertinent family history in first degree relatives Social History Smoking Status: Smoker, status unknown Tobacco Type: Cigarettes Hx Alcohol Use: Yes Alcohol type: hard liquor Hx Substance Use: Yes Last Used Substance: Just Prior to Arrival Preferred Language: Andorran Etiology Teacher Required: No Beliefs That Will Affect Care: None Current Living Situation: Family Current Living Situation Comment: Lives with grandmother/father at times & his girlfriend "Audra" at others Other Information That Helps Us Care for You: No Feels Safe at Home: Declines to Answer Assistive Devices: None Review of Systems Review of Systems: Unobtainable due to endotracheal tube Physical Exam Physical Exam: General: Sedated. nontoxic. Skin: Warm, dry, Head: Atraumatic Ears, nose, mouth and throat: airway obscured by endotracheal tube Cardiovascular: Normal peripheral perfusion Respiratory: Ventilator settings reviewed Gastrointestinal: Non distended Musculoskeletal: No deformity Results & Data Results & Data ([facility]) Vital Signs (Past 12 Hours) Vital Signs Pulse Pulse Resp BP BP Pulse Ox O2 Del Method 03/18/22 16:48 182 H 22 146/88 H 96 03/18/22 16:34 98 Room Air 03/18/22 16:32 141 H 13 146/88 H 96 Room Air 03/18/22 16:20 134 H 16 151/79 H Critical Care Results & Data Vital Signs (Past 12 Hours) Vital Signs Temp Pulse Pulse Resp BP BP BP 03/18/22 23:50 99 H 18 03/18/22 22:00 37.0 C 92 H 16 111/73 03/18/22 21:30 37.0 C 96 H 16 03/18/22 21:00 37.0 C 101 H 16 114/72 03/18/22 20:55 37.0 C 100 H 18 136/80 03/18/22 20:30 37.0 C 103 H 16 03/18/22 20:15 37.1 C 106 H 16 03/18/22 20:00 03/18/22 20:08 03/18/22 20:08 114 H 03/18/22 20:08 37.1 C 104 H 19 168/82 H 03/18/22 20:14 19 03/18/22 19:25 108 H 19 172/94 H 03/18/22 19:20 106 H 20 169/94 H 03/18/22 19:15 105 H 20 171/97 H 03/18/22 19:15 111 H 20 03/18/22 19:10 111 H 20 152/107 H 03/18/22 19:05 110 H 19 165/88 H 03/18/22 19:00 112 H 18 148/81 H 03/18/22 18:56 104 H 20 03/18/22 18:55 116 H 20 188/86 H 03/18/22 18:50 117 H 19 158/88 H 03/18/22 18:46 132 H 23 166/131 H 03/18/22 18:45 127 H 20 03/18/22 18:40 130 H 21 163/96 H 03/18/22 18:39 129 H 21 152/97 H 03/18/22 18:35 134 H 25 H 03/18/22 18:30 125 H 21 03/18/22 18:25 136 H 12 03/18/22 18:25 153/74 H 03/18/22 18:20 126 H 20 03/18/22 18:20 173/72 H 03/18/22 18:15 133 H 20 03/18/22 18:15 148/72 H 03/18/22 18:10 135 H 21 03/18/22 18:10 159/94 H 03/18/22 18:09 138/104 H 03/18/22 18:09 131 H 20 03/18/22 18:05 141 H 21 03/18/22 18:01 128/96 03/18/22 18:01 148 H 25 H 03/18/22 18:00 143 H 15 03/18/22 17:55 126 H 15 03/18/22 17:55 128/75 03/18/22 17:51 133 H 21 03/18/22 17:51 166/64 H 03/18/22 17:50 143 H 23 03/18/22 17:45 131 H 24 03/18/22 17:45 128/99 03/18/22 17:40 133 H 18 03/18/22 17:40 163/82 H 03/18/22 17:35 113 H 20 03/18/22 17:30 113 H 20 03/18/22 17:30 191/80 H 03/18/22 17:25 116 H 20 03/18/22 17:24 159/89 H 03/18/22 17:24 119 H 20 03/18/22 17:22 124 H 18 03/18/22 17:15 03/18/22 17:10 122 H 21 03/18/22 17:10 133/72 03/18/22 17:08 137 H 23 03/18/22 17:34 117 H 18 03/18/22 16:48 182 H 22 146/88 H 03/18/22 16:34 03/18/22 16:32 141 H 13 146/88 H 03/18/22 16:20 134 H 16 151/79 H Pulse Ox O2 Del Method FiO2 03/18/22 23:50 91 30 03/18/22 22:00 98 Mechanical Vent 30 03/18/22 21:30 97 03/18/22 21:00 98 Mechanical Vent 30 03/18/22 20:55 97 03/18/22 20:30 98 Mechanical Vent 30 03/18/22 20:15 98 30 03/18/22 20:00 30 03/18/22 20:08 Mechanical Vent 30 03/18/22 20:08 03/18/22 20:08 98 Mechanical Vent 30 03/18/22 20:14 30 03/18/22 19:25 97 03/18/22 19:20 98 03/18/22 19:15 98 03/18/22 19:15 97 30 03/18/22 19:10 97 03/18/22 19:05 97 03/18/22 19:00 98 03/18/22 18:56 98 03/18/22 18:55 98 03/18/22 18:50 98 03/18/22 18:46 98 03/18/22 18:45 98 03/18/22 18:40 98 03/18/22 18:39 98 03/18/22 18:35 98 03/18/22 18:30 98 03/18/22 18:25 98 03/18/22 18:25 03/18/22 18:20 98 03/18/22 18:20 03/18/22 18:15 98 03/18/22 18:15 03/18/22 18:10 98 03/18/22 18:10 03/18/22 18:09 03/18/22 18:09 98 03/18/22 18:05 98 03/18/22 18:01 03/18/22 18:01 98 03/18/22 18:00 99 03/18/22 17:55 98 03/18/22 17:55 03/18/22 17:51 98 03/18/22 17:51 03/18/22 17:50 98 03/18/22 17:45 98 03/18/22 17:45 03/18/22 17:40 98 03/18/22 17:40 03/18/22 17:35 98 03/18/22 17:30 98 03/18/22 17:30 03/18/22 17:25 98 03/18/22 17:24 03/18/22 17:24 98 03/18/22 17:22 98 03/18/22 17:15 100 03/18/22 17:10 100 03/18/22 17:10 03/18/22 17:08 98 03/18/22 17:34 98 30 03/18/22 16:48 96 03/18/22 16:34 98 Room Air 03/18/22 16:32 96 Room Air 03/18/22 16:20 Lab & Micro Results (Past 24 Hours) RBC 5.19 M/uL (4.63-6.08) 03/18/22 WBC 6.56 K/ul (4.8-10.8) 03/18/22 Hgb 15.4 g/dl (14.0-18.0) 03/18/22 Hct 44.8 % (40.1-51.0) 03/18/22 MCV 86.3 fL (80.0-100.0) 03/18/22 MCH 29.7 pg (25.0-34.0) 03/18/22 MCHC 34.4 g/dL (32.0-36.0) 03/18/22 RDW Standard Deviation 38.5 fL (36.4-46.3) 03/18/22 RDW Coefficient of Variation 12.2 % (11.5-14.5) 03/18/22 Plt Count 239 K/uL (130-400) 03/18/22 MPV 9.7 fL (9.4-12.4) 03/18/22 Neutrophils (%) (Auto) 65.3 % 03/18/22 Lymphocytes (%) (Auto) 26.4 % 03/18/22 Monocytes # (Auto) 0.40 K/uL (0.24-0.82) 03/18/22 Eosinophils # (Auto) 0.07 K/uL (0-0.50) 03/18/22 Immature Granulocyte % (Auto) 0.2 % 03/18/22 Neutrophils # (Auto) 4.29 K/uL (1.4-6.5) 03/18/22 Lymphocytes # (Auto) 1.73 K/uL (1.2-3.4) 03/18/22 Monocytes # (Auto) 0.40 K/uL (0.24-0.82) 03/18/22 Eosinophils # (Auto) 0.07 K/uL (0-0.50) 03/18/22 Basophils # (Auto) 0.06 K/uL (0-0.2) 03/18/22 Immature Granulocyte # (Auto) 0.01 K/uL (0.00-0.02) 2 Na 143 mmol/L (136-145) 03/18/22 K 3.6 mmol/L (3.5-5.1) 03/18/22 Cl 107 mmol/L (98-107) 03/18/22 CO2 22 mmol/L (21-32) 03/18/22 Anion Gap 14 (3-11) H 03/18/22 BUN 11 mg/dl (6-23) 03/18/22 Creatinine 0.80 mg/dl (0.6-1.4) 03/18/22 Estimated GFR ( Amer) 144.9 ml/min 03/18/22 Estimated GFR (Non-Af Amer) 125.0 ml/min 03/18/22 BUN/Creatinine Ratio 13.8 (10-20) 03/18/22 Glu 114 mg/dl (70-99(Fasting)) H 03/18/22 Ca 9.4 mg/dl (8.5-10.1) 03/18/22 Total Bilirubin 0.4 mg/dl (0.2-1.0) 03/18/22 AST 17 U/L (13-39) 03/18/22 ALT 23 U/L (7-52) 03/18/22 Alkaline Phosphatase 62 U/L (34-104) 03/18/22 TP 7.4 gm/dl (6.0-8.3) 03/18/22 Albumin 4.9 gm/dl (3.4-5.0) 03/18/22 Globulin 2.5 gm/dl (2.5-4.0) 03/18/22 Albumin/Globulin Ratio 2.0 (0.9-2) 03/18/22 Calcium Level 9.4 mg/dl (8.5-10.1) 03/18/22 17:10 Venous Blood pH 7.46 (7.36-7.41) H 03/18/22 17:35 Venous Blood Partial Pressure CO2 43 mmHg (38-50) 03/18/22 17:3 5 Venous Blood Partial Pressure O2 115 mmHg 03/18/22 17:35 Venous Blood HCO3 31 mmol/L 03/18/22 17:35 Venous Blood Base Excess 6.0 mEq/L 03/18/22 17:35 Venous Blood Oxygen Saturation 99.5 % 03/18/22 17:35 Lorenzo Test Pass 03/18/22 21:17 Diagnostic Findings (Past 24 Hours) Chest X-Ray 03/18/22 17:09 SINGLE VIEW CHEST CLINICAL HISTORY: Respiratory failure. Intubation. FINDINGS: An AP, portable, supine chest radiograph is compared to study dated 08/12/2019. An endotracheal tube has been placed. The tip of the catheter projects 3.5 cm above the samira. An enteric tube has been placed. The tip projects below the diaphragm and is not visualized. The cardiomediastinal silhouette is unremarkable. The lungs and pleural spaces are clear. No pneumothorax is seen. The bony thorax is grossly intact. IMPRESSION: 1. Endotracheal and enteric tube placement as above. 2. The lungs appear clear. ACT 112: Negative or not required by law. Electronically signed by: Pietro Noriega M.D. 03/18/2022 5:35 PM KUB X-Ray 03/18/22 17:57 KUB CLINICAL HISTORY: Enteric tube placement. FINDINGS: An AP, portable, supine view of the lower chest and upper abdomen is correlated with abdominal CT dated 01/02/2020. An enteric tube has been placed. The tip projects below the diaphragm over the distal stomach. There is no evidence of bowel obstruction or intraperitoneal free air on the provided image. The lung bases are clear as visualized. IMPRESSION: Enteric tube placement as above. Electronically signed by: Pietro Noriega M.D. 03/18/2022 8:02 PM I & O Totals 24 Hours 03/17/22 03/18/22 03/19/22 06:59 06:59 06:59 Intake Total 1177.445 / 1177.445 Output Total 750 / 750 Balance 427.445 / 427.445 Cumulative 03/18/22 16:10 thru 03/19/22 00:51 Intake Total 1177.445 Output Total 750 Balance 427.445 RT Ventilator Mngmt (Last Documented) Ventilator Ordered Settings Ventilator Support Mode Assist Control 03/18/22 23:50 Respiratory Rate 18 03/18/22 23:50 Ventilator Tidal Volume 500 03/18/22 23:50 Setting Minute Ventilation 9.0 03/18/22 23:50 Positive End Expiratory 5 03/18/22 23:50 Pressure Fraction of Inspired Oxygen 30 03/18/22 23:50 Ventilator - PT Measurements Respiratory Rate 18 Exhaled Tidal Volume 500 Minute Ventilation 9.0 Peak Inspiratory Airway 16 Pressure Plateau Pressure 13.7 Respiratory Cycle Inspiratory: 1:2.3 Expiratory Ratio Inspiratory Phase Time 1.0 End-Tidal CO2 36 Static Lung Compliance 57.47 Dynamic Lung Compliance 45.45 Normal Static Lung Compliance 48.00 Patient Measurements Comment Intubated patient recieved in ICU at this time. Patient placed on [employer] [place] w/ same settings as in ED. Initial assessment performed. Per Nilda Castro PA-C obtain ABG in about 1 hour after patient is settled. Coding Level of Care Code Critical Care 1st 30-74 mins Diagnoses Intentional overdose T50.902A Encounter type: initial encounter Polysubstance overdose T50.902A Encounter type: initial encounter Injury intent: intentional self-harm History of suicidal ideation Z86.59 Acute encephalopathy G93.40 Time Spent (min) 55 (1) Intentional overdose Encounter type: initial encounter Qualified Code(s): T50.902A - Poisoning by unspecified drugs, medicaments and biological substances, intentional self-harm, initial encounter (2) Polysubstance overdose Encounter type: initial encounter Injury intent: intentional self-harm Qualified Code(s): T50.902A - Poisoning by unspecified drugs, medicaments and biological substances, intentional self-harm, initial encounter
[2022-03-18] MEDS ORDERED: ACTIVATED CHARCOAL/SORBITOL 25 GM/120 ML TUBE PO STA (17:32)
[2022-03-18 17:35] LABS: Basophils # (auto) 0.06 K/uL (0-0.2); Basophils % (auto) 0.9 %; Eosinophils # (auto) 0.07 K/uL (0-0.50); Eosinophils % (auto) 1.1 %; Hematocrit (blood only) 44.8 % (40.1-51.0); Hemoglobin 15.4 g/dl (14.0-18.0); Immature Granulocytes # (auto) 0.01 K/uL (0.00-0.02); Immature Granulocytes % (auto) 0.2 %; Lymphocytes # (auto) 1.73 K/uL (1.2-3.4); Lymphocytes % (auto) 26.4 %; Mean Corpuscular Hemoglobin 29.7 pg (25.0-34.0); Mean Corpuscular Hgb Conc 34.4 g/dL (32.0-36.0); Mean Corpuscular Volume 86.3 fL (80.0-100.0); Mean Platelet Volume 9.7 fL (9.4-12.4); Monocytes % (auto) 6.1 %; Neutrophils # (auto) 4.29 K/uL (1.4-6.5); Neutrophils % (auto) 65.3 %; Platelet Count 239 K/uL (130-400); RDW Coefficient of Variation 12.2 % (11.5-14.5); RDW Standard Deviation 38.5 fL (36.4-46.3); Red Blood Count 5.19 M/uL (4.63-6.08); White Blood Count 6.56 K/ul (4.8-10.8)
--- NOTE | 2022-03-18 17:36 | XRay Report ---
SINGLE VIEW CHEST CLINICAL HISTORY: Respiratory failure. Intubation. FINDINGS: An AP, portable, supine chest radiograph is compared to study dated 08/12/2019. An endotrache al tube has been placed. The tip of the catheter projects 3.5 cm above the samira. An enteric tube gonzalez s been placed. The tip projects below the diaphragm and is not visualized. The cardiomediastinal silh ouette is unremarkable. The lungs and pleural spaces are clear. No pneumothorax is seen. The bony tho rax is grossly intact. IMPRESSION: 1. Endotracheal and enteric tube placement as above. 2. The lungs appear clear. ACT 112: Negative or not required by law. Electronically signed by: Pietro Noriega M.D. 03/18/2022 5:35 PM
[2022-03-18] MEDS: PROPOFOL BOLUS FROM BAG IV PRN ×7 (17:37→18:31)
[2022-03-18 17:54] LABS: HCO3 VBG 31 mmol/L; Oxygen Saturation VBG 99.5 %; PCO2 VBG 43 mmHg (38-50); PO2 VBG 115 mmHg; pH VBG 7.46 (7.36-7.41)
[2022-03-18 17:58] LABS: Appearance Urine Clear (Clear); Bilirubin Urine Negative (Negative); Blood Urine Negative (Negative); Color Urine Yellow; Glucose Urine UA Negative (Negative); Ketones Urine Negative (Negative); Leukocyte Esterase Urine Negative (Negative); Nitrite Urine Negative (Negative); Protein Urine Negative (Negative); Specific Gravity Urine 1.005 (1.000-1.030); Urobilinogen Urine Negative (Negative)
[2022-03-18 18:01] LABS: Acetaminophen < 3 ug/ml (10-30); Salicylate < 3.0 mg/dl (3.0-30)
[2022-03-18 18:02] LABS: Albumin Level 4.9 gm/dl (3.4-5.0); BUN Creatinine Ratio 13.8 (10-20); Bilirubin,Total 0.4 mg/dl (0.2-1.0); Calcium 9.4 mg/dl (8.5-10.1); Creatinine Clr Calc Pharmacy 173.9 ml/min; Est GFR (African American) 144.9 ml/min; Globulin 2.5 gm/dl (2.5-4.0); Potassium 3.6 mmol/L (3.5-5.1); Total Protein 7.4 gm/dl (6.0-8.3)
[2022-03-18] MEDS: ACTIVATED CHARCOAL/SORBITOL 25 GM/120 ML TUBE PO STA ×2 (18:09→18:10)
--- NOTE | 2022-03-18 18:12 | Emergency Department Note ---
History of Present Illness General Chief complaint: Overdose (Intentional) Stated complaint: TOOK PILLS, OVERDOSE Time Seen by Provider: 03/18/22 16:24 Source: family (Father at bedside) History of Present Illness Provider complaint: Overdose Onset (ago): unknown 26-year-old male presents emergency department with father for overdose. Father reports that the patient has a history of bipolar disorder and recently broke up with girlfriend. Father reports he took all of his pills in attempt to overdose and kill himself. Father does not know what pills he took or when. Father's medical ex-girlfriend to find this out. Home Medications Medication Instructions Recorded Confirmed Type olanzapine 20 mg tablet (Zyprexa) 20 mg PO DAILY #14 tabs 01/27/22 Rx Allergies Allergy/AdvReac Type Severity Reaction Status Date / Time No Known Allergies Allergy Unknown Verified 01/02/20 03:56 Past Med/Surg History Medical History Aggressive behavior Major depressive disorder Opiate dependence, continuous Puncture wound of hand Surgical History No significant past surgical history Family History Other No pertinent family history in first degree relatives Social History Smoking Status: Smoker, status unknown Tobacco Type: Cigarettes Hx Alcohol Use: Yes Alcohol type: hard liquor Hx Substance Use: Yes Last Used Substance: Just Prior to Arrival Preferred Language: Pashto Sales Representative Jewelry Required: No Beliefs That Will Affect Care: None Current Living Situation: Family Current Living Situation Comment: Lives with grandmother/father at times & his girlfriend "Audra" at others Other Information That Helps Us Care for You: No Feels Safe at Home: Declines to Answer Assistive Devices: None Review of Systems Unobtainable due to mental health condition Physical Exam Vital Signs Vital Signs - 24 hr 03/18/22 16:20 03/18/22 16:32 03/18/22 16:34 Pulse Rate 134 H Pulse Rate [Apical] 141 H Respiratory Rate 16 13 Respiratory Effort / Characteristics Non-Labored Spontaneous Respiratory Depth Normal Blood Pressure 151/79 H Blood Pressure [Right Arm] 146/88 H Blood Pressure Mean 103 Blood Pressure Mean [Right Arm] 107 Pulse Oximetry 96 98 Oxygen Delivery Method Room Air Room Air Fraction of Inspired Oxygen Sepsis Recent Fever Within 48 Hours No Sepsis New/Unexplained Change in Mental Status N/A Sepsis Action Taken by Nursing No Action Required End-Tidal CO2 03/18/22 16:48 03/18/22 17:34 Pulse Rate 117 H Pulse Rate [Apical] 182 H Respiratory Rate 22 18 Respiratory Effort / Characteristics Non-Labored Spontaneous Respiratory Depth Normal Blood Pressure Blood Pressure [Right Arm] 146/88 H Blood Pressure Mean Blood Pressure Mean [Right Arm] 107 Pulse Oximetry 96 98 Oxygen Delivery Method Fraction of Inspired Oxygen 30 Sepsis Recent Fever Within 48 Hours Sepsis New/Unexplained Change in Mental Status Sepsis Action Taken by Nursing End-Tidal CO2 38 Physical Exam GENERAL: Patient is screaming obscenities at staff trying to spit and hit people. HENT: Exam performed. - Head: Normocephalic and atraumatic. - Mouth/Throat: The oropharynx is clear and moist. No trismus in the jaw. No dental abscesses or uvula swelling. No oropharyngeal exudate or tonsillar abscesses. EYES: Pupils 2 mm are equal, round, and reactive to light. Right eye exhibits no discharge. Left eye exhibits no discharge. No scleral icterus. NECK: Normal range of motion. Neck supple. No JVD present. CV: Tachycardic rate, regular rhythm, normal heart sounds and intact distal pulses. There is no peripheral edema. Palpable radial pulses bue. PULM/CHEST: Effort normal and breath sounds normal. No respiratory distress. No stridor. He has no wheezes. He has no rales. ABD: The abdomen is soft. NEURO: Motor and sensation grossly intact SKIN: Diaphoretic. Procedures Intubation Time out performed: Yes sedative: Versed Mg Given: 10 paralytic: Rocuronium Mg Given: 70 Laryngoscope: other (glidescope) ET Tube Size: 7 ET Tube Uncuffed: Yes Tube Secured Depth (cm): 26 Tube Secured Location: lips Tube Placement Confirmation: visualized tube passing through cords, equal breath sounds bilaterally and no breath sounds over epigastrium Patient Tolerated Procedure: well Intubation Complications: none Course Course 1624: The patient was evaluated in room A9. A complete history and physical exam was performed Cardiac monitoring: An order was placed for continuous cardiac monitoring. The monitor shows a rate of 170 with sinus rhythm Patient was extremely agitated aggressive and was trying to spit and hit staff. Patient was treated with multiple doses of Haldol IM, multiple doses of Ativan IM, Benadryl IM, and was not able to be calmed down. The patient was placed in four-point restraints but was still able to break through these four-point restraints and try to hit and bite people. Given this, for the patient's and staff safety it was thought to better control the patient behaviorally and intubate him to protect his own airway as well as the safety of the staff. Patient was intubated with Versed and rocuronium. See procedure note. 1745: Vital signs stable on propofol drip. Sister arrived and states she thinks that the patient took an overdose of lorazepam for 5 hours ago approximate 20 tablets. Based off the patient's clinical appearance, it does not appear that the patient took lorazepam as he was extremely agitated and not somnolent. Pharmacy was able to obtain the patient's prescription history and the patient had 30 tablets of olanzapine 20 mg filled on March 12 as well as lithium 300 mg extended release 60 tablets filled on March 08. I spoke with [facility] Jocelyne who agrees with the work-up and to continue sedation and supportive care with propofol. She stated if the patient required additional sedation to the propofol to give a Versed drip. ICU Dr. De La Cruz did come down evaluate the patient and the [facility] hospitalist team was made aware of the patient and stated to admit to Dr. Chopra. 1835: Patient is still agitated and thrashing in the bed despite being maxed out on propofol drip. Patient be started on Versed drip. Labs are within normal limits with a negative salicylate Tylenol and lithium level. Administered Medications Propofol (Diprivan) 1,000 mg in 100 mls @ 11.94 mls/hr IV .[id number] [facility]; Protocol Stop: 03/21/22 17:29 Last Titration: 03/18/22 18:25 Dose: 45 mcg/kg/min, 26.9 mls/hr Documented By: Titration: 03/18/22 18:16 Dose: 40 mcg/kg/min, 23.9 mls/hr Documented By: Titration: 03/18/22 18:04 Dose: 35 mcg/kg/min, 20.9 mls/hr Documented By: Titration: 03/18/22 17:48 Dose: 30 mcg/kg/min, 17.9 mls/hr Documented By: Titration: 03/18/22 17:39 Dose: 25 mcg/kg/min, 14.9 mls/hr Documented By: Admin: 03/18/22 17:13 Dose: 20 mcg/kg/min, 11.9 mls/hr Documented By: NUVIA Co-signed By: SOCRATES Propofol (Propofol Bolus From Bag) 20 mg IV Q5M PRN PRN Reason: Sedation Stop: 03/21/22 17:21 Last Admin: 03/18/22 18:25 Dose: 20 mg Documented By: SOCRATES Co-signed By: DEBORAH Admin: 03/18/22 18:16 Dose: 20 mg Documented By: SOCRATES Co-signed By: DEBORAH Admin: 03/18/22 18:04 Dose: 20 mg Documented By: SOCRATES Co-signed By: DEBORAH Admin: 03/18/22 17:52 Dose: 20 mg Documented By: SOCRATES Co-signed By: RONEN Admin: 03/18/22 17:44 Dose: 20 mg Documented By: SOCRATES Co-signed By: LilianaGShannon Admin: 03/18/22 17:37 Dose: 20 mg Documented By: NUVIA Co-signed By: SOCRATES Discontinued Medications Charcoal/Sorbitol (Activated Charcoal/Sorbitol 25 Gm/120 Ml Tube) 50 gm PO NOW STA Stop: 03/18/22 17:29 Last Admin: 03/18/22 18:10 Dose: 50 gm Documented By: Admin: 03/18/22 18:09 Dose: 50 gm Documented By: SOCRATES Diphenhydramine HCl (Diphenhydramine 50 Mg/Ml Vial) Confirm Administered Dose 50 mg .ROUTE .STK-MED ONE Stop: 03/18/22 16:33 Last Admin: 03/18/22 16:40 Dose: 50 mg Documented By: NUVIA Haloperidol Lactate (Haloperidol Lactate 5 Mg/Ml 1 Ml Vial) Confirm Administered Dose 5 mg .ROUTE .STK-MED ONE Stop: 03/18/22 16:34 Last Admin: 03/18/22 17:26 Dose: 5 mg Documented By: NUVIA Haloperidol Lactate (Haloperidol Lactate 5 Mg/Ml 1 Ml Vial) Confirm Administered Dose 5 mg .ROUTE .STK-MED ONE Stop: 03/18/22 16:39 Last Admin: 03/18/22 16:45 Dose: 5 mg Documented By: Lorazepam (Lorazepam 2 Mg/1 Ml Vial) Confirm Administered Dose 1 mg .ROUTE .STK- MED ONE Stop: 03/18/22 16:33 Last Admin: 03/18/22 16:40 Dose: 1 mg Documented By: Lorazepam (Lorazepam 2 Mg/1 Ml Vial) Confirm Administered Dose 4 mg .ROUTE .STK- MED ONE Stop: 03/18/22 16:44 Last Admin: 03/18/22 16:50 Dose: 4 mg Documented By: Lorazepam (Lorazepam 2 Mg/1 Ml Vial) Confirm Administered Dose 2 mg .ROUTE .STK- MED ONE Stop: 03/18/22 16:52 Last Admin: 03/18/22 16:51 Dose: 2 mg Documented By: Lorazepam (Lorazepam 2 Mg/Ml 10 Ml) 2 mg IV TODAY@1651 ONE Stop: 03/18/22 16:52 Last Admin: 03/18/22 16:59 Dose: 2 mg Documented By: Miscellaneous (Rapid Sequence Induction Bag) Confirm Administered Dose 1 each .ROUTE .STK-MED ONE Stop: 03/18/22 16:48 Last Admin: 03/18/22 16:47 Dose: 1 each Documented By: Propofol (Propofol Iv Emulsion 10 Mg/Ml 100 Ml Vial) Confirm Administered Dose 1,000 mg IV .STK-MED ONE Stop: 03/18/22 17:07 Last Admin: 03/18/22 17:40 Dose: Not Given Documented By: Critical Care Time Critical Care Time: Yes Total Critical Care Time: 60 I have personally spent greater than 60 minutes of critical care time in the direct management of this patient. This includes bedside care, interpretation of diagnostic studies, and testing, discussion with consultants, patient, and family members, and other required patient management activities. This 60 minutes is in excess of all separately billable procedures. Medical Decision Making Laboratory Data Result diagrams: 03/18/22 17:10 03/18/22 17:10 Lab Results 03/18/22 03/18/22 03/18/22 Range/Units 17:10 17:10 17:10 WBC 6.56 (4.8-10.8) K/ul RBC 5.19 (4.63-6.08) M/uL Hgb 15.4 (14.0-18.0) g/dl POC Hgb (14.0-18.0) g/dl Hct 44.8 (40.1-51.0) % POC Hct (42-52) % MCV 86.3 (80.0-100.0) fL MCH 29.7 (25.0-34.0) pg MCHC 34.4 (32.0-36.0) g/dL RDW Std Deviation 38.5 (36.4-46.3) fL RDW Coeff of Osiel 12.2 (11.5-14.5) % Plt Count 239 (130-400) K/uL MPV 9.7 (9.4-12.4) fL Immature Gran % (Auto) 0.2 % Neut % (Auto) 65.3 % Lymph % (Auto) 26.4 % Millard % (Auto) 6.1 % Eos % (Auto) 1.1 % Baso % (Auto) 0.9 % Neut # (Auto) 4.29 (1.4-6.5) K/uL Lymph # (Auto) 1.73 (1.2-3.4) K/uL Millard # (Auto) 0.40 (0.24-0.82) K/uL Eos # (Auto) 0.07 (0-0.50) K/uL Baso # (Auto) 0.06 (0-0.2) K/uL Immature Gran # (Auto) 0.01 (0.00-0.02) K/uL POC Sodium (135-144) mmol/L Sodium 143 (136-145) mmol/L POC Potassium (3.3-5.0) mmol/L Potassium 3.6 (3.5-5.1) mmol/L POC Chloride (101-112) mmol/L Chloride 107 (98-107) mmol/L Carbon Dioxide 22 (21-32) mmol/L POC Total CO2 (24-31) mmol/L Anion Gap 14 H (3-11) POC Anion Gap (16-25) mmol/L POC BUN (7-18) mg/dl BUN 11 (6-23) mg/dl Creatinine 0.80 (0.6-1.4) mg/dl POC Creatinine (0.6-1.3) mg/dl Est Cr Clr Drug Dosing 173.9 ml/min Est GFR ( Amer) 144.9 ml/min Est GFR (Non-Af Amer) 125.0 ml/min BUN/Creatinine Ratio 13.8 (10-20) Glucose 114 H (70-99(Fasting)) mg/dl POC Glucose (other) (70-99) mg/dl Calcium 9.4 (8.5-10.1) mg/dl POC Ioniz Calcium Damon (1.12-1.32) mmol/l Total Bilirubin 0.4 (0.2-1.0) mg/dl AST 17 (13-39) U/L ALT 23 (7-52) U/L Alkaline Phosphatase 62 (34-104) U/L Total Protein 7.4 (6.0-8.3) gm/dl Albumin 4.9 (3.4-5.0) gm/dl Globulin 2.5 (2.5-4.0) gm/dl Albumin/Globulin Ratio 2.0 (0.9-2) Urine Color Urine Appearance (Clear) Urine pH (4.5-7.5) Ur Specific Salida (1.000-1.030) Urine Protein (Negative) Urine Glucose (UA) (Negative) Urine Ketones (Negative) Urine Blood (Negative) Urine Nitrite (Negative) Urine Bilirubin (Negative) Urine Urobilinogen (Negative) Ur Leukocyte Esterase (Negative) Salicylates < 3.0 L (3.0-30) mg/dl Acetaminophen < 3 L (10-30) ug/ml Bluefield (0.6-1.2) mmol/L Ethyl Alcohol mg/dL (<10.0) mg/dl 03/18/22 03/18/22 03/18/22 Range/Units 17:10 17:10 17:12 WBC (4.8-10.8) K/ul RBC (4.63-6.08) M/uL Hgb (14.0-18.0) g/dl POC Hgb (14.0-18.0) g/dl Hct (40.1-51.0) % POC Hct (42-52) % MCV (80.0-100.0) fL MCH (25.0-34.0) pg MCHC (32.0-36.0) g/dL RDW Std Deviation (36.4-46.3) fL RDW Coeff of Osiel (11.5-14.5) % Plt Count (130-400) K/uL MPV (9.4-12.4) fL Immature Gran % (Auto) % Neut % (Auto) % Lymph % (Auto) % Millard % (Auto) % Eos % (Auto) % Baso % (Auto) % Neut # (Auto) (1.4-6.5) K/uL Lymph # (Auto) (1.2-3.4) K/uL Millard # (Auto) (0.24-0.82) K/uL Eos # (Auto) (0-0.50) K/uL Baso # (Auto) (0-0.2) K/uL Immature Gran # (Auto) (0.00-0.02) K/uL POC Sodium (135-144) mmol/L Sodium (136-145) mmol/L POC Potassium (3.3-5.0) mmol/L Potassium (3.5-5.1) mmol/L POC Chloride (101-112) mmol/L Chloride (98-107) mmol/L Carbon Dioxide (21-32) mmol/L POC Total CO2 (24-31) mmol/L Anion Gap (3-11) POC Anion Gap (16-25) mmol/L POC BUN (7-18) mg/dl BUN (6-23) mg/dl Creatinine (0.6-1.4) mg/dl POC Creatinine (0.6-1.3) mg/dl Est Cr Clr Drug Dosing ml/min Est GFR ( Amer) ml/min Est GFR (Non-Af Amer) ml/min BUN/Creatinine Ratio (10-20) Glucose (70-99(Fasting)) mg/dl POC Glucose (other) (70-99) mg/dl Calcium (8.5-10.1) mg/dl POC Ioniz Calcium Damon (1.12-1.32) mmol/l Total Bilirubin (0.2-1.0) mg/dl AST (13-39) U/L ALT (7-52) U/L Alkaline Phosphatase (34-104) U/L Total Protein (6.0-8.3) gm/dl Albumin (3.4-5.0) gm/dl Globulin (2.5-4.0) gm/dl Albumin/Globulin Ratio (0.9-2) Urine Color Yellow Urine Appearance Clear (Clear) Urine pH 7.0 (4.5-7.5) Ur Specific Salida 1.005 (1.000-1.030) Urine Protein Negative (Negative) Urine Glucose (UA) Negative (Negative) Urine Ketones Negative (Negative) Urine Blood Negative (Negative) Urine Nitrite Negative (Negative) Urine Bilirubin Negative (Negative) Urine Urobilinogen Negative (Negative) Ur Leukocyte Esterase Negative (Negative) Salicylates (3.0-30) mg/dl Acetaminophen (10-30) ug/ml Bluefield < 0.1 L (0.6-1.2) mmol/L Ethyl Alcohol mg/dL < 10.0 (<10.0) mg/dl 03/18/22 Range/Units 17:17 WBC (4.8-10.8) K/ul RBC (4.63-6.08) M/uL Hgb (14.0-18.0) g/dl POC Hgb 15.6 (14.0-18.0) g/dl Hct (40.1-51.0) % POC Hct 46 (42-52) % MCV (80.0-100.0) fL MCH (25.0-34.0) pg MCHC (32.0-36.0) g/dL RDW Std Deviation (36.4-46.3) fL RDW Coeff of Osiel (11.5-14.5) % Plt Count (130-400) K/uL MPV (9.4-12.4) fL Immature Gran % (Auto) % Neut % (Auto) % Lymph % (Auto) % Millard % (Auto) % Eos % (Auto) % Baso % (Auto) % Neut # (Auto) (1.4-6.5) K/uL Lymph # (Auto) (1.2-3.4) K/uL Millard # (Auto) (0.24-0.82) K/uL Eos # (Auto) (0-0.50) K/uL Baso # (Auto) (0-0.2) K/uL Immature Gran # (Auto) (0.00-0.02) K/uL POC Sodium 145 H (135-144) mmol/L Sodium (136-145) mmol/L POC Potassium 3.5 (3.3-5.0) mmol/L Potassium (3.5-5.1) mmol/L POC Chloride 106 (101-112) mmol/L Chloride (98-107) mmol/L Carbon Dioxide (21-32) mmol/L POC Total CO2 26 (24-31) mmol/L Anion Gap (3-11) POC Anion Gap 17.0 (16-25) mmol/L POC BUN 11 (7-18) mg/dl BUN (6-23) mg/dl Creatinine (0.6-1.4) mg/dl POC Creatinine 0.7 (0.6-1.3) mg/dl Est Cr Clr Drug Dosing ml/min Est GFR ( Amer) ml/min Est GFR (Non-Af Amer) ml/min BUN/Creatinine Ratio (10-20) Glucose (70-99(Fasting)) mg/dl POC Glucose (other) 123 H (70-99) mg/dl Calcium (8.5-10.1) mg/dl POC Ioniz Calcium Damon 1.15 (1.12-1.32) mmol/l Total Bilirubin (0.2-1.0) mg/dl AST (13-39) U/L ALT (7-52) U/L Alkaline Phosphatase (34-104) U/L Total Protein (6.0-8.3) gm/dl Albumin (3.4-5.0) gm/dl Globulin (2.5-4.0) gm/dl Albumin/Globulin Ratio (0.9-2) Urine Color Urine Appearance (Clear) Urine pH (4.5-7.5) Ur Specific Salida (1.000-1.030) Urine Protein (Negative) Urine Glucose (UA) (Negative) Urine Ketones (Negative) Urine Blood (Negative) Urine Nitrite (Negative) Urine Bilirubin (Negative) Urine Urobilinogen (Negative) Ur Leukocyte Esterase (Negative) Salicylates (3.0-30) mg/dl Acetaminophen (10-30) ug/ml Bluefield (0.6-1.2) mmol/L Ethyl Alcohol mg/dL (<10.0) mg/dl Imaging Data Radiologist's Impression: Chest X-Ray 03/18/22 17:09 SINGLE VIEW CHEST CLINICAL HISTORY: Respiratory failure. Intubation. FINDINGS: An AP, portable, supine chest radiograph is compared to study dated 08/12/2019. An endotracheal tube has been placed. The tip of the catheter projects 3.5 cm above the samira. An enteric tube has been placed. The tip projects below the diaphragm and is not visualized. The cardiomediastinal silhouette is unremarkable. The lungs and pleural spaces are clear. No pneumothorax is seen. The bony thorax is grossly intact. IMPRESSION: 1. Endotracheal and enteric tube placement as above. 2. The lungs appear clear. ACT 112: Negative or not required by law. Electronically signed by: Pietro Noriega M.D. 03/18/2022 5:35 PM [facility] Narrative 1624: The patient was evaluated in room A9. A complete history and physical exam was performed Cardiac monitoring: An order was placed for continuous cardiac monitoring. The monitor shows a rate of 170 with sinus rhythm Patient was extremely agitated aggressive and was trying to spit and hit staff. Patient was treated with multiple doses of Haldol IM, multiple doses of Ativan IM, Benadryl IM, and was not able to be calmed down. The patient was placed in four-point restraints but was still able to break through these four-point restraints and try to hit and bite people. Given this, for the patient's and staff safety it was thought to better control the patient behaviorally and intubate him to protect his own airway as well as the safety of the staff. Patient was intubated with Versed and rocuronium. See procedure note. 1745: Vital signs stable on propofol drip. Sister arrived and states she thinks that the patient took an overdose of lorazepam for 5 hours ago approximate 20 tablets. Based off the patient's clinical appearance, it does not appear that the patient took lorazepam as he was extremely agitated and not somnolent. Pharmacy was able to obtain the patient's prescription history and the patient had 30 tablets of olanzapine 20 mg filled on March 12 as well as lithium 300 mg extended release 60 tablets filled on March 08. I spoke with [facility] Jocelyne who agrees with the work-up and to continue sedation and supportive care with propofol. She stated if the patient required additional sedation to the propofol to give a Versed drip. ICU Dr. De La Cruz did come down evaluate the patient and the [facility] hospitalist team was made aware of the patient and stated to admit to Dr. Chopra. 1835: Patient is still agitated and thrashing in the bed despite being maxed out on propofol drip. Patient be started on Versed drip. Labs are within normal limits with a negative salicylate Tylenol and lithium level. Impression & Plan Polysubstance overdose Discharge Plan Visit Data Chief Complaint: Overdose (Intentional) Stated Complaint: TOOK PILLS, OVERDOSE ED Provider: Tevin Deluna Discharge Problem: Polysubstance overdose Patient Disposition: Admitted As Inpatient Forms Stand Alone Forms: [facility], Suicide Prevention Resources Prescriptions Prescriptions: No Action olanzapine [Zyprexa] 20 mg tablet 20 mg PO DAILY Qty: 14 0RF Referrals Referrals: PCP,NO [Primary Care Provider] - : Polysubstance overdose Qualifiers: Encounter type: initial encounter Injury intent: intentional self-harm Qualified Code(s): T50.902A - Poisoning by unspecified drugs, medicaments and biological substances, intentional self-harm, initial encounter
[2022-03-18] MEDS ORDERED: SODIUM CHLORIDE 0.9% 1000ML 1,000 ML IV ONE (18:14)
[2022-03-18] MEDS ORDERED: MIDAZOLAM HCL 125 MG/250 ML BAG IV STA (18:34)
[2022-03-18 18:37] LABS: Amphetamines+Metham, Urine Neg (Neg); Barbiturates, Urine Neg (Neg); Benzodiazepine, Urine Neg (Neg); Cocaine, Urine Neg (Neg); MDMA (Ecstacy), Urine Neg (Neg); Methadone, Urine Neg (Neg); Opiate, Urine Neg (Neg); Phencyclidine, Urine Neg (Neg)
--- NOTE | 2022-03-18 19:24 | History & Physical Report ---
Date of Service March 18, 2022 Assessment & Plan (1) Intentional overdose: (2) Aggressive behavior: (3) Mood disorder: (4) History of suicidal ideation: (5) Substance abuse: Plan This is a 26-year-old male with past medical history of bipolar disorder, history of aggressive behavior and suicide attempts, polysubstance abuse including marijuana and opioids in the past who presents after intentional overdose per report from family. Father reports that patient was attempting to overdose and kill himself by taking all of his pills (unsure what type) Has h/o bipolar disorder with suicide attempts in the past as well as opioid dependence In ED, patient was aggressive and violent towards staff despite receiving ativan, benadryl and haldol before propofol drip initiated Patient maxed out on propofol and Versed added by Dr. Deluna per discussion with poison control Recent prescription history includes 30 tabs of olanzapine 20mg filled on March 12 and lithium 300mg ER 60 tabs filled 03/08 (lithium level negative on admission) Tox screen negative other than marijuana Afebrile, no leukocytosis, ECG with sinus tachycardia with current HR of 110 Dr. Lake evaluated in ED, patient will be admitted to ICU for further mgmt Will attempt to call family for additional details. PCP: No PCP Dispo: Admitted to ICU Patient seen in collaboration with Dr. Chopra. Please see addendum. History of Present Illness Chief Complaint: Intentional overdose Primary Care Provider: NO PCP This is a 26-year-old male with past medical history of bipolar disorder, history of aggressive behavior and suicide attempts, polysubstance abuse including marijuana and opioids in the past who presents after intentional ove rdose per report from family. Father reports that patient was attempting to overdose and kill himself by taking a lot of pills at once. Sister believes patient took over 20 Ativan pills (strength unknown) although is not sure. Patient is also prescribed olanzapine which he had recently ran out of Per ER note from 03/11/2022 when he presented in a manic state. Recently was broken up with by girlfriend. Patient reportedly aggressive and violent towards staff in ED receiving ativan, benadryl and haldol before propofol drip initiated. Patient examined while intubated and sedated. Dr. Lake from ICU already examined at bedside and accepted for ICU for further management. Unable to obtain ROS from patient due to sedated state. Tox screen negative except for marijuana. Allergies Allergy/AdvReac Type Severity Reaction Status Date / Time No Known Allergies Allergy Unknown Verified 01/02/20 03:56 Home Medications Medication Instructions Recorded Confirmed Type olanzapine 20 mg tablet (Zyprexa) 20 mg PO DAILY #14 tabs 01/27/22 Rx Past Med/Surg History Medical History (Updated 03/18/22 @ 19:17 by Emy Holley PA-C) Aggressive behavior Major depressive disorder Opiate dependence, continuous Puncture wound of hand Surgical History (Updated 03/18/22 @ 19:17 by Emy Holley PA-C) Surgical history unknown Family History Other No pertinent family history in first degree relatives Social History Smoking Status: Smoker, status unknown Tobacco Type: Cigarettes Hx Alcohol Use: Yes Alcohol type: hard liquor Hx Substance Use: Yes Last Used Substance: Just Prior to Arrival Preferred Language: Setsw[place] Bridge Inspector Required: No Beliefs That Will Affect Care: None Current Living Situation: Family Current Living Situation Comment: Lives with grandmother/father at times & his girlfriend "Audra" at others Other Information That Helps Us Care for You: No Feels Safe at Home: Declines to Answer Assistive Devices: None Review of Systems Review of Systems: Unobtainable due to endotracheal tube Physical Exam Physical Exam: General Appearance: WD/WN, vitals as above, intubated and sedated in 4 point restraints Head: normocephalic, atraumatic Eyes: PERRL, conjunctivae normal, anicteric sclerae ENT: external ear and nose normal, oropharynx normal Neck: normal visual inspection, trachea midline, no thyromegaly Respiratory: normal respiratory effort, lungs clear to auscultation, no wheeze, rales, rhonchi. No accessory muscle use Cardiovascular: tachycardic rate, regular rhythm, no murmur, normal peripheral pulses, no BLE edema Chest: normal inspection of chest Abdomen/GI: normal bowel sounds, soft, nontender, no hepatosplenomegaly Extremities/Musculoskeletal: no cyanosis or clubbing, extremities motor strength 5/5 Neurologic/psychiatric: Intubated and sedated Skin: no rashes, normal color, warm/dry Results & Data Results & Data ([facility]) Vital Signs (Past 12 Hours) Vital Signs Pulse Pulse Resp BP BP Pulse Ox O2 Del Method 03/18/22 18:35 134 H 25 H 98 03/18/22 18:30 125 H 21 98 03/18/22 18:25 136 H 12 98 03/18/22 18:25 153/74 H 03/18/22 18:20 126 H 20 98 03/18/22 18:20 173/72 H 03/18/22 18:15 133 H 20 98 03/18/22 18:15 148/72 H 03/18/22 18:10 135 H 21 98 03/18/22 18:10 159/94 H 03/18/22 18:09 138/104 H 03/18/22 18:09 131 H 20 98 03/18/22 18:05 141 H 21 98 03/18/22 18:01 128/96 03/18/22 18:01 148 H 25 H 98 03/18/22 18:00 143 H 15 99 03/18/22 17:55 126 H 15 98 03/18/22 17:55 128/75 03/18/22 17:51 133 H 21 98 03/18/22 17:51 166/64 H 03/18/22 17:50 143 H 23 98 03/18/22 17:45 131 H 24 98 03/18/22 17:45 128/99 03/18/22 17:40 133 H 18 98 03/18/22 17:40 163/82 H 03/18/22 17:35 113 H 20 98 03/18/22 17:30 113 H 20 98 03/18/22 17:30 191/80 H 03/18/22 17:25 116 H 20 98 03/18/22 17:24 159/89 H 03/18/22 17:24 119 H 20 98 03/18/22 17:22 124 H 18 98 03/18/22 17:15 100 03/18/22 17:10 122 H 21 100 03/18/22 17:10 133/72 03/18/22 17:08 137 H 23 98 03/18/22 17:34 117 H 18 98 03/18/22 16:48 182 H 22 146/88 H 96 03/18/22 16:34 98 Room Air 03/18/22 16:32 141 H 13 146/88 H 96 Room Air 03/18/22 16:20 134 H 16 151/79 H FiO2 03/18/22 18:35 03/18/22 18:30 03/18/22 18:25 03/18/22 18:25 03/18/22 18:20 03/18/22 18:20 03/18/22 18:15 03/18/22 18:15 03/18/22 18:10 03/18/22 18:10 03/18/22 18:09 03/18/22 18:09 03/18/22 18:05 03/18/22 18:01 03/18/22 18:01 03/18/22 18:00 03/18/22 17:55 03/18/22 17:55 03/18/22 17:51 03/18/22 17:51 03/18/22 17:50 03/18/22 17:45 03/18/22 17:45 03/18/22 17:40 03/18/22 17:40 03/18/22 17:35 03/18/22 17:30 03/18/22 17:30 03/18/22 17:25 03/18/22 17:24 03/18/22 17:24 03/18/22 17:22 03/18/22 17:15 03/18/22 17:10 03/18/22 17:10 03/18/22 17:08 03/18/22 17:34 30 03/18/22 16:48 03/18/22 16:34 03/18/22 16:32 03/18/22 16:20 Laboratory Results Short CBC 03/18/22 Range/Units 17:10 WBC 6.56 (4.8-10.8) K/ul Hgb 15.4 (14.0-18.0) g/dl Hct 44.8 (40.1-51.0) % Plt Count 239 (130-400) K/uL BMP 03/18/22 17:10 Sodium 143 Potassium 3.6 Chloride 107 Carbon Dioxide 22 BUN 11 Creatinine 0.80 Glucose 114 H Calcium 9.4 Liver Function 03/18/22 Range/Units 17:10 Total Bilirubin 0.4 (0.2-1.0) mg/dl AST 17 (13-39) U/L ALT 23 (7-52) U/L Alkaline Phosphatase 62 (34-104) U/L Albumin 4.9 (3.4-5.0) gm/dl Urine 03/18/22 Range/Units 17:12 Urine Color Yellow Urine Appearance Clear (Clear) Urine pH 7.0 (4.5-7.5) Ur Specific [place] 1.005 (1.000-1.030) Urine Protein Negative (Negative) Urine Glucose (UA) Negative (Negative) Diagnostic Findings Chest X-Ray 03/18/22 17:09 SINGLE VIEW CHEST CLINICAL HISTORY: Respiratory failure. Intubation. FINDINGS: An AP, portable, supine chest radiograph is compared to study dated 08/12/2019. An endotracheal tube has been placed. The tip of the catheter projects 3.5 cm above the samira. An enteric tube has been placed. The tip projects below the diaphragm and is not visualized. The cardiomediastinal silhouette is unremarkable. The lungs and pleural spaces are clear. No pneumothorax is seen. The bony thorax is grossly intact. IMPRESSION: 1. Endotracheal and enteric tube placement as above. 2. The lungs appear clear. ACT 112: Negative or not required by law. Electronically signed by: Pietro Noriega M.D. 03/18/2022 5:35 PM Supervising Physician Co-Signing Physician Notes 26-year-old male with PMH of bipolar disorder, history of aggressive behavior and suicide attempts, polysubstance abuse including marijuana/opiates in the past presented to the ED 03/18 after intentional overdose. Patient was obtunded/agitated at trials and received multiple medications in the ED for his agitation but in vain, hence intubated. Later on family brought in the pills that the patient was taking, olanzapine was filled on 03/12/2022 and only 9 pills were left in the box which brings to the assumption that he might have taken around 15-16 pills of 20 Mg on the day of arrival. Patient's sister believes that patient took over 20 Ativan pills [restraint unknown] but she is not sure. At bedside exam, patient was intubated, restraints on bilateral upper extremity, with minimal agitation during examination. Admitting labs and imaging reviewed, patient is being admitted under ICU care. Toxicology screen was positive for marijuana, negative for acetaminophen and salicylate, follow-up of other toxicology screen. Upon Exam: GENERAL: Patient intubated, on ventilation, with restraints on bilateral upper extremity, minimally agitated during examination. HEENT: No pallor, no icterus. Pupils equal, round and reactive to light. Oral mucosa dry. NECK: No JVD, no neck masses. HEART: S1 and S2 heard. Tachycardia. No murmur, no gallop. RESPIRATORY SYSTEM: Normal AP diameter. No accessory muscle use. No wheezing, + crackles. ABDOMEN: Soft, bowel sounds present, no distention. CENTRAL NERVOUS SYSTEM: No facial droop. Speech is clear. Obeys simple commands. Moves extremities. EXTREMITIES: No edema, no erythema seen. Urinary catheter in situ with jcarlos-colored urine collection noted. I have seen and examined the patient and have discussed the case with the provider above. I agree with the assessment and plan as stated.
--- NOTE | 2022-03-18 20:04 | XRay Report ---
KUB CLINICAL HISTORY: Enteric tube placement. FINDINGS: An AP, portable, supine view of the lower chest and upper abdomen is correlated with abdomi nal CT dated 01/02/2020. An enteric tube has been placed. The tip projects below the diaphragm over th e distal stomach. There is no evidence of bowel obstruction or intraperitoneal free air on the provid ed image. The lung bases are clear as visualized. IMPRESSION: Enteric tube placement as above. Electronically signed by: Pietro Noriega M.D. 03/18/2022 8:02 PM
[2022-03-18] MEDS ORDERED: ICU PROTOCOL FOR HYPERGLYCEMIA PRN (20:08)
[2022-03-18] MEDS: MIDAZOLAM BOLUS FROM BAG IV PRN (20:16)
[2022-03-18] MEDS: SODIUM CHLORIDE 0.9% 1000ML 1,000 ML IV SCH (20:58)
[2022-03-18 21:33] LABS: iSTAT Allen Test Pass; iSTAT Art Bld Gas pCO2 Correct 40 mmHg (35-46); iSTAT Art Bld Gas pH Corrected 7.394 (7.35-7.45); iSTAT Arterial Blood Gas HCO3 24 meg/L (19-24); iSTAT Arterial Blood Gas pCO2 40 mmHg (35-46); iSTAT Arterial Blood Gas pH 7.39 (7.35-7.45); iSTAT Arterial Blood Gas pO2 126 mmHg (80-95); iSTAT Arterial Blood Gas pO2 C 126; iSTAT Carbon Dioxide 25 mmol/L (24-31); iSTAT FiO2 30 %; iSTAT Hematocrit 41 % (42-52); iSTAT Hemoglobin 13.9 g/dl (14.0-18.0); iSTAT Potassium 3.5 mmol/L (3.3-5.0); iSTAT Site R Radial; iSTAT Sodium 144 mmol/L (135-144)
[2022-03-19] MEDS: propofoL 1,000 MG/100 ML VIAL IV SCH ×4 (00:51→19:36)
[2022-03-19 01:43] LABS: Acetaminophen < 3 ug/ml (10-30); Lithium < 0.1 mmol/L (0.6-1.2); Salicylate < 3.0 mg/dl (3.0-30)
[2022-03-19] MEDS ORDERED: fentaNYL citrate 100 MCG/2 ML VIAL IV PRN (01:52)
[2022-03-19] MEDS: PROPOFOL BOLUS FROM BAG IV PRN (02:54)
[2022-03-19] MEDS: MIDAZOLAM BOLUS FROM BAG IV PRN (02:54)
[2022-03-19] MEDS: SODIUM CHLORIDE 0.9% 1000ML 1,000 ML IV SCH ×3 (04:42→20:42)
[2022-03-19 04:49] LABS: iSTAT Allen Test Pass; iSTAT Art Bld Gas pCO2 Correct 35 mmHg (35-46); iSTAT Art Bld Gas pH Corrected 7.442 (7.35-7.45); iSTAT Arterial Blood Gas HCO3 24 meg/L (19-24); iSTAT Arterial Blood Gas pCO2 36 mmHg (35-46); iSTAT Arterial Blood Gas pH 7.43 (7.35-7.45); iSTAT Arterial Blood Gas pO2 122 mmHg (80-95); iSTAT Arterial Blood Gas pO2 C 117; iSTAT Carbon Dioxide 25 mmol/L (24-31); iSTAT FiO2 30 %; iSTAT Hematocrit 38 % (42-52); iSTAT Hemoglobin 12.9 g/dl (14.0-18.0); iSTAT Potassium 3.6 mmol/L (3.3-5.0); iSTAT Site R Radial; iSTAT Sodium 143 mmol/L (135-144)
[2022-03-19 06:29] LABS: Basophils # (auto) 0.05 K/uL (0-0.2); Basophils % (auto) 0.6 %; Eosinophils # (auto) 0.16 K/uL (0-0.50); Eosinophils % (auto) 1.9 %; Hematocrit (blood only) 40.1 % (40.1-51.0); Hemoglobin 13.4 g/dl (14.0-18.0); Immature Granulocytes # (auto) 0.03 K/uL (0.00-0.02); Immature Granulocytes % (auto) 0.4 %; Lymphocytes # (auto) 2.13 K/uL (1.2-3.4); Lymphocytes % (auto) 25.4 %; Mean Corpuscular Hemoglobin 29.6 pg (25.0-34.0); Mean Corpuscular Hgb Conc 33.4 g/dL (32.0-36.0); Mean Corpuscular Volume 88.7 fL (80.0-100.0); Mean Platelet Volume 9.9 fL (9.4-12.4); Monocytes # (auto) 0.59 K/uL (0.24-0.82); Neutrophils # (auto) 5.41 K/uL (1.4-6.5); Neutrophils % (auto) 64.7 %; Platelet Count 217 K/uL (130-400); RDW Coefficient of Variation 12.6 % (11.5-14.5); RDW Standard Deviation 41.1 fL (36.4-46.3); Red Blood Count 4.52 M/uL (4.63-6.08); White Blood Count 8.37 K/ul (4.8-10.8)
[2022-03-19 06:55] LABS: Anion Gap 8 (3-11); BUN Creatinine Ratio 14.9 (10-20); Blood Urea Nitrogen 10 mg/dl (6-23); Calcium 8.6 mg/dl (8.5-10.1); Carbon Dioxide 23 mmol/L (21-32); Chloride 111 mmol/L (98-107); Creatinine Clr Calc Pharmacy 209.1 ml/min; Est GFR (African American) > 150.0 ml/min; Est GFR (Non-African American) 134.5 ml/min; Glucose 88 mg/dl (70-99(Fasting)); Magnesium 2.1 mg/dl (1.7-2.4); Phosphorus 3.1 mg/dl (2.5-4.9); Potassium 3.6 mmol/L (3.5-5.1); Sodium 142 mmol/L (136-145)
--- NOTE | 2022-03-19 07:53 | XRay Report ---
XR chest 1V portable HISTORY: 26 years-old Male f/u acute respiratory failure COMPARISON: Chest radiograph 03/18/2022 TECHNIQUE: Portable AP view of the chest FINDINGS: Cardiomediastinal and hilar silhouettes are unchanged. The lungs are hypoinflated. Endotracheal tube overlies the midline, 3.7 cm superior to the samira. Enteric tube courses into the stomach with dista l tip outside the [id number]. No pneumothorax. Possible trace right pleural effusion. Minimal righ t basilar opacities. Bones appear normal. IMPRESSION: 1. Lines and tubes as above. 2. No pneumothorax. 3. Possible trace right pleural effusion with right basilar atelectasis. ACT 112: Negative or not required by law. The above report was generated using voice recognition software. It may contain grammatical, syntax o r spelling errors. Electronically signed by: Lee Hutton M.D. 03/19/2022 7:52 AM
[2022-03-19] MEDS: ENOXAPARIN INJ 40 MG/0.4 ML SYR SQ SCH (08:31)
--- NOTE | 2022-03-19 09:31 | Critical Care Progress Note ---
Date of Service March 19, 2022 Assessment & Plan (1) Intentional overdose: Plan: Reason Critically Ill: 26-year-old male with significant history for mental health disorder as well as prior suicidal ideation with attempt who presents with acute polysubstance overdose with intent of self-harm PLAN: Neuro: Acute encephalopathy -Sedation: Propofol and Versed -Analgesia: Fentanyl Intentional drug overdose with intent of self-harm -Emergency department contacted poison control Mood disorder -Significantly subtherapeutic lithium level Polysubstance overdose Marijuana positive -Patient is since medically cleared hemodynamically stable, discussed with psych liaison and stable for evaluation Resp: Extubated this morning CV: Tachycardia -Resolved Fluids/Renal: No evidence of high gap metabolic acidosis ID: No indication for antibiotics at this time GI/Nutrition: 100 g activated charcoal with sorbitol Heme: DVT prophylaxis: Lovenox 40 mg subcu Endocrine: ICU hyperglycemia protocol Vascular access: Peripheral IVs Code Status: Full code Disposition: One-to-one observation stable for downgrade out of ICU versus transfer to [facility] (2) Polysubstance overdose: (3) History of suicidal ideation: (4) Acute encephalopathy: Admission and Anticipated Discharge Date Admission Date: March 18, 2022 Subjective Following simple commands while intubated and decreased sedation Review of Systems Review of Systems: Unobtainable due to endotracheal tube Physical Exam Physical Exam: General: Sedated. nontoxic. Skin: Warm, dry, Head: Atraumatic Ears, nose, mouth and throat: airway obscured by endotracheal tube Cardiovascular: Normal peripheral perfusion Respiratory: Ventilator settings reviewed Gastrointestinal: Non distended Musculoskeletal: No deformity Results & Data Results & Data ([facility]) Vital Signs (Past 12 Hours) Vital Signs Temp Pulse Resp BP Pulse Ox O2 Del Method FiO2 03/19/22 08:00 36.4 C L 87 16 97 03/19/22 08:00 140/86 03/19/22 07:00 36.3 C L 86 16 98 03/19/22 07:00 137/80 03/19/22 08:00 25 03/19/22 08:00 88 03/19/22 07:15 88 16 98 25 03/19/22 07:05 36.3 C L 03/19/22 06:00 36.2 C L 83 16 98 Mechanical Vent 30 03/19/22 06:00 128/86 03/19/22 05:00 36.3 C L 79 16 98 Mechanical Vent 30 03/19/22 05:00 120/78 03/19/22 04:00 36.4 C L 82 18 98 Mechanical Vent 30 03/19/22 04:00 125/78 03/19/22 04:00 30 03/19/22 04:48 16 03/19/22 03:25 85 18 96 30 03/19/22 03:00 36.3 C L 87 18 135/86 94 Mechanical Vent 30 03/19/22 02:03 107 H 21 121/86 94 Mechanical Vent 30 03/19/22 01:00 36.7 C 87 16 131/86 99 Mechanical Vent 30 03/19/22 00:00 36.7 C 99 H 16 126/83 99 Mechanical Vent 30 03/18/22 23:00 36.8 C 89 16 112/74 98 Mechanical Vent 30 03/19/22 00:00 87 03/19/22 00:00 30 03/18/22 23:50 99 H 18 91 30 03/18/22 22:00 37.0 C 92 H 16 111/73 98 Mechanical Vent 30 Critical Care Results & Data Vital Signs (Past 12 Hours) Vital Signs Temp Pulse Resp BP Pulse Ox O2 Del Method FiO2 03/19/22 13:00 36.9 C 93 H 18 99 03/19/22 13:00 157/91 H 03/19/22 12:00 36.6 C 97 H 20 99 03/19/22 12:00 143/90 H 03/19/22 11:01 142/86 H 03/19/22 11:01 36.9 C 103 H 17 99 03/19/22 11:00 36.9 C 104 H 17 98 03/19/22 10:57 129/89 03/19/22 10:57 36.9 C 102 H 21 98 03/19/22 10:00 36.8 C 118 H 20 98 03/19/22 10:00 151/99 H 03/19/22 09:53 36.8 C 123 H 21 98 03/19/22 09:53 151/87 H 03/19/22 09:00 36.5 C 88 16 97 03/19/22 09:00 130/74 03/19/22 10:11 Oxymask 03/19/22 09:52 102 H 22 97 25 03/19/22 08:00 36.4 C L 87 16 97 03/19/22 08:00 140/86 03/19/22 07:00 36.3 C L 86 16 98 03/19/22 07:00 137/80 03/19/22 08:00 25 03/19/22 08:00 88 03/19/22 07:15 88 16 98 25 03/19/22 07:05 36.3 C L 03/19/22 06:00 36.2 C L 83 16 98 Mechanical Vent 30 03/19/22 06:00 128/86 03/19/22 05:00 36.3 C L 79 16 98 Mechanical Vent 30 03/19/22 05:00 120/78 03/19/22 04:00 36.4 C L 82 18 98 Mechanical Vent 30 03/19/22 04:00 125/78 03/19/22 04:00 30 03/19/22 04:48 16 03/19/22 03:25 85 18 96 30 Lab & Micro Results (Past 24 Hours) RBC 4.52 M/uL (4.63-6.08) L 03/19/22 WBC 8.37 K/ul (4.8-10.8) 03/19/22 Hgb 13.4 g/dl (14.0-18.0) L 03/19/22 Hct 40.1 % (40.1-51.0) 03/19/22 MCV 88.7 fL (80.0-100.0) 03/19/22 MCH 29.6 pg (25.0-34.0) 03/19/22 MCHC 33.4 g/dL (32.0-36.0) 03/19/22 RDW Standard Deviation 41.1 fL (36.4-46.3) 03/19/22 RDW Coefficient of Variation 12.6 % (11.5-14.5) 03/19/22 Plt Count 217 K/uL (130-400) 03/19/22 MPV 9.9 fL (9.4-12.4) 03/19/22 Neutrophils (%) (Auto) 64.7 % 03/19/22 Lymphocytes (%) (Auto) 25.4 % 03/19/22 Monocytes # (Auto) 0.59 K/uL (0.24-0.82) 03/19/22 Eosinophils # (Auto) 0.16 K/uL (0-0.50) 03/19/22 Immature Granulocyte % (Auto) 0.4 % 03/19/22 Neutrophils # (Auto) 5.41 K/uL (1.4-6.5) 03/19/22 Lymphocytes # (Auto) 2.13 K/uL (1.2-3.4) 03/19/22 Monocytes # (Auto) 0.59 K/uL (0.24-0.82) 03/19/22 Eosinophils # (Auto) 0.16 K/uL (0-0.50) 03/19/22 Basophils # (Auto) 0.05 K/uL (0-0.2) 03/19/22 Immature Granulocyte # (Auto) 0.03 K/uL (0.00-0.02) H 03/19 Na 142 mmol/L (136-145) 03/19/22 K 3.6 mmol/L (3.5-5.1) 03/19/22 Cl 111 mmol/L (98-107) H 03/19/22 CO2 23 mmol/L (21-32) 03/19/22 Anion Gap 8 (3-11) 03/19/22 BUN 10 mg/dl (6-23) 03/19/22 Creatinine 0.67 mg/dl (0.6-1.4) 03/19/22 Estimated GFR ( Amer) > 150.0 ml/min 03/19/22 Estimated GFR (Non-Af Amer) 134.5 ml/min 03/19/22 BUN/Creatinine Ratio 14.9 (10-20) 03/19/22 Glu 88 mg/dl (70-99(Fasting)) 03/19/22 Ca 8.6 mg/dl (8.5-10.1) 03/19/22 Phosphorus Level 3.1 mg/dl (2.5-4.9) 03/19/22 Total Bilirubin 0.4 mg/dl (0.2-1.0) 03/18/22 AST 17 U/L (13-39) 03/18/22 ALT 23 U/L (7-52) 03/18/22 Alkaline Phosphatase 62 U/L (34-104) 03/18/22 TP 7.4 gm/dl (6.0-8.3) 03/18/22 Albumin 4.9 gm/dl (3.4-5.0) 03/18/22 Globulin 2.5 gm/dl (2.5-4.0) 03/18/22 Albumin/Globulin Ratio 2.0 (0.9-2) 03/18/22 Mg 2.1 mg/dl (1.7-2.4) 03/19/22 05:31 Calcium Level 8.6 mg/dl (8.5-10.1) 03/19/22 05:31 Venous Blood pH 7.46 (7.36-7.41) H 03/18/22 17:35 Venous Blood Partial Pressure CO2 43 mmHg (38-50) 03/18/22 17:3 5 Venous Blood Partial Pressure O2 115 mmHg 03/18/22 17:35 Venous Blood HCO3 31 mmol/L 03/18/22 17:35 Venous Blood Base Excess 6.0 mEq/L 03/18/22 17:35 Venous Blood Oxygen Saturation 99.5 % 03/18/22 17:35 Lorenzo Test Pass 03/19/22 04:34 Diagnostic Findings (Past 24 Hours) Chest X-Ray 03/18/22 17:09 SINGLE VIEW CHEST CLINICAL HISTORY: Respiratory failure. Intubation. FINDINGS: An AP, portable, supine chest radiograph is compared to study dated 08/12/2019. An endotracheal tube has been placed. The tip of the catheter projects 3.5 cm above the samira. An enteric tube has been placed. The tip projects below the diaphragm and is not visualized. The cardiomediastinal silhouette is unremarkable. The lungs and pleural spaces are clear. No pneumothorax is seen. The bony thorax is grossly intact. IMPRESSION: 1. Endotracheal and enteric tube placement as above. 2. The lungs appear clear. ACT 112: Negative or not required by law. Electronically signed by: Pietro Noriega M.D. 03/18/2022 5:35 PM KUB X-Ray 03/18/22 17:57 KUB CLINICAL HISTORY: Enteric tube placement. FINDINGS: An AP, portable, supine view of the lower chest and upper abdomen is correlated with abdominal CT dated 01/02/2020. An enteric tube has been placed. The tip projects below the diaphragm over the distal stomach. There is no evidence of bowel obstruction or intraperitoneal free air on the provided image. The lung bases are clear as visualized. IMPRESSION: Enteric tube placement as above. Electronically signed by: Pietro Noriega M.D. 03/18/2022 8:02 PM Chest X-Ray 03/19/22 07:00 XR chest 1V portable HISTORY: 26 years-old Male f/u acute respiratory failure COMPARISON: Chest radiograph 03/18/2022 TECHNIQUE: Portable AP view of the chest FINDINGS: Cardiomediastinal and hilar silhouettes are unchanged. The lungs are hypoinflated. Endotracheal tube overlies the midline, 3.7 cm superior to the samira. Enteric tube courses into the stomach with distal tip outside the [id number]. No pneumothorax. Possible trace right pleural effusion. Minimal right basilar opacities. Bones appear normal. IMPRESSION: 1. Lines and tubes as above. 2. No pneumothorax. 3. Possible trace right pleural effusion with right basilar atelectasis. ACT 112: Negative or not required by law. The above report was generated using voice recognition software. It may contain grammatical, syntax or spelling errors. Electronically signed by: Lee Hutton M.D. 03/19/2022 7:52 AM I & O Totals 24 Hours 03/18/22 03/19/22 03/20/22 06:59 06:59 06:59 Intake Total 2245.597 / 2245.597 1081.416 / 1081.416 Output Total 900 / 900 880 / 880 Balance 1345.597 / 1345.597 201.416 / 201.416 Cumulative 03/18/22 16:10 thru 03/19/22 14:00 Intake Total 3327.013 Output Total 1780 Balance 1547.013 RT Ventilator Mngmt (Last Documented) Ventilator Ordered Settings Ventilator Support Mode CPAP 03/19/22 09:52 Respiratory Rate 18 03/19/22 13:00 Ventilator Tidal Volume 500 03/19/22 08:00 Setting Minute Ventilation 8 03/19/22 07:15 Ventilator Positive Pressure 8 03/19/22 09:52 Support Setting Positive End Expiratory 5 03/19/22 09:52 Pressure Fraction of Inspired Oxygen 25 03/19/22 09:52 Ventilator - PT Measurements Respiratory Rate 18 Exhaled Tidal Volume 541 Minute Ventilation 8 Peak Inspiratory Airway 18 Pressure Plateau Pressure 15 Respiratory Cycle Inspiratory: 1:2.8 Expiratory Ratio Inspiratory Phase Time 1.0 End-Tidal CO2 38 Static Lung Compliance 50.00 Dynamic Lung Compliance 38.46 Normal Static Lung Compliance 48.00 Patient Measurements Comment Patient switched to SBT 0949 with verbal ok to extubate per Shippert, patient extremely uncomfortable once switched to CPAP and trying to grab the tube, unable to record other weaning parameters or measurements off of ventilator at this time. RN at bedside with RT for extubation 951. Patient extuabted to 2L Oxymask sats 97% HR 120. No stridor present post extubation, coarse sounds heard in the back of the throat with the patient coughing up thick secretions. Plan to leave ventilator in room just in case and pull and clean machine if no respiratory distress occurs. Coding Level of Care Code 57333 Subseq Hosp Care Lvl 3 Diagnoses Intentional overdose T50.902A Encounter type: initial encounter Polysubstance overdose T50.90 Encounter type: initial encounter Injury intent: intentional self-harm History of suicidal ideation Z86.59 Acute encephalopathy G93.40 (1) Intentional overdose Encounter type: initial encounter Qualified Code(s): T50.902A - Poisoning by unspecified drugs, medicaments and biological substances, intentional self-harm, initial encounter (2) Polysubstance overdose Encounter type: initial encounter Injury intent: intentional self-harm Qualified Code(s): T50.902A - Poisoning by unspecified drugs, medicaments and biological substances, intentional self-harm, initial encounter
--- NOTE | 2022-03-19 12:29 | Hospitalist Progress Note ---
Date of Service March 19, 2022 Assessment & Plan (1) Intentional overdose: (2) Aggressive behavior: (3) Mood disorder: (4) History of suicidal ideation: (5) Substance abuse: Plan Patient is a 26 yr male with H/O bipolar disorder, history of aggressive behavior and suicide attempts, polysubstance abuse including marijuana and opioids in the past who presents after intentional overdose per report from family. Intentional overdose Suicidal ideation Acute Toxic/Metabolic encephalopathy S/P Extubation on 03/19/22 H/O suicidal attempts in the past, Opioid dependence as per records Toxicology Screen: Positive for THC Poison control informed Appreciate critical care input Continue 1:1 observation Suicidal precautions We will consult psychiatry when appropriate H/O Bipolar disorder Recent prescription history includes 30 tabs of olanzapine 20mg filled on March 12 and lithium 300mg ER 60 tabs filled 03/08 Subtherapeutic lithium level ? compliance H/O polysubstance abuse Major depression Anxiety disorder Tobacco use disorder Hold home meds DVT Px: Lovenox SQ Code Status Full Code Admission and Anticipated Discharge Date Admission Date: March 18, 2022 Subjective Patient is seen and examined at bedside Was extubated this morning Sitter at bedside Patient is drowsy post extubation during my encounter Admits to overdosing on home medications Denies any chest pain, shortness of breath, dizziness, nausea, abdominal pain Review of Systems Review of Systems: Unobtainable due to reduced consciousness Physical Exam Physical Exam: Physical Exam: Vitals signs as noted above General Appearance:Moderately built and nourished, no apparent distress Head: normocephalic, Atraumatic Eyes: normal inspection, EOMI Neck: supple, Trachea midline Respiratory/Chest: Normal breath sounds, CTA, No accessory muscle use Cardiovascular: S1, S2, No murmur Abdomen/GI:Soft, Non tender, Bowel sounds present Extremities/Musculoskeletal:normal inspection, no edema Neurologic/Psych:AAOX3, grossly no focal neurological deficits Skin: normal color, warm Results & Data Results & Data ([facility]) Vital Signs (Past 12 Hours) Vital Signs Temp Pulse Resp BP Pulse Ox O2 Del Method FiO2 03/19/22 10:11 Oxymask 03/19/22 09:52 102 H 22 97 25 03/19/22 08:00 36.4 C L 87 16 97 03/19/22 08:00 140/86 03/19/22 07:00 36.3 C L 86 16 98 09/08/22 07:00 137/80 03/19/22 08:00 25 03/19/22 08:00 88 03/19/22 07:15 88 16 98 25 03/19/22 07:05 36.3 C L 03/19/22 06:00 36.2 C L 83 16 98 Mechanical Vent 30 03/19/22 06:00 128/86 03/19/22 05:00 36.3 C L 79 16 98 Mechanical Vent 30 03/19/22 05:00 120/78 03/19/22 04:00 36.4 C L 82 18 98 Mechanical Vent 30 03/19/22 04:00 125/78 03/19/22 04:00 30 03/19/22 04:48 16 03/19/22 03:25 85 18 96 30 03/19/22 03:00 36.3 C L 87 18 135/86 94 Mechanical Vent 30 03/19/22 02:03 107 H 21 121/86 94 Mechanical Vent 30 03/19/22 01:00 36.7 C 87 16 131/86 99 Mechanical Vent 30 Laboratory Results Short CBC 03/18/22 03/19/22 Range/Units 17:10 05:31 WBC 6.56 8.37 (4.8-10.8) K/ul Hgb 15.4 13.4 L (14.0-18.0) g/dl Hct 44.8 40.1 (40.1-51.0) % Plt Count 239 217 (130-400) K/uL BMP 03/18/22 03/19/22 17:10 05:31 Sodium 143 142 Potassium 3.6 3.6 Chloride 107 111 H Carbon Dioxide 22 23 BUN 11 10 Creatinine 0.80 0.67 Glucose 114 H 88 Calcium 9.4 8.6 Liver Function 03/18/22 Range/Units 17:10 Total Bilirubin 0.4 (0.2-1.0) mg/dl AST 17 (13-39) U/L ALT 23 (7-52) U/L Alkaline Phosphatase 62 (34-104) U/L Albumin 4.9 (3.4-5.0) gm/dl Urine 03/18/22 Range/Units 17:12 Urine Color Yellow Urine Appearance Clear (Clear) Urine pH 7.0 (4.5-7.5) Ur Specific Deane 1.005 (1.000-1.030) Urine Protein Negative (Negative) Urine Glucose (UA) Negative (Negative) (1) Intentional overdose Encounter type: initial encounter Qualified Code(s): T50.902A - Poisoning by unspecified drugs, medicaments and biological substances, intentional self-harm, initial encounter
--- NOTE | 2022-03-19 13:08 | Electrocardiogram Report ---
Test Reason : Blood Pressure : / mmHG Vent. Rate : 119 BPM Atrial Rate : 119 BPM P-R Int : 150 ms QRS Dur : 088 ms QT Int : 312 ms P-R-T Axes : 070 077 058 degrees QTc Int : 438 ms Sinus tachycardia Nonspecific T wave abnormality When compared with ECG of 12-AUG-2019 04:55, Nonspecific T wave abnormality is now Present Confirmed by Sin Florian ([id number]) on 03/19/2022 1:07:39 PM Referred By: REFERRED SELF Confirmed By:Sin Florian
--- NOTE | 2022-03-19 13:43 | Electrocardiogram Report ---
Test Reason : Blood Pressure : / mmHG Vent. Rate : 092 BPM Atrial Rate : 092 BPM P-R Int : 166 ms QRS Dur : 084 ms QT Int : 332 ms P-R-T Axes : 061 068 045 degrees QTc Int : 410 ms Normal sinus rhythm Early repolarization When compared with ECG of 18-MAR-2022 17:25, No significant change was found Confirmed by Sin Florian ([id number]) on 03/19/2022 1:43:11 PM Referred By: REFERRED SELF Confirmed By:Sin Florian
--- NOTE | 2022-03-19 13:47 | Electrocardiogram Report ---
Test Reason : Blood Pressure : / mmHG Vent. Rate : 089 BPM Atrial Rate : 089 BPM P-R Int : 180 ms QRS Dur : 084 ms QT Int : 350 ms P-R-T Axes : 061 056 048 degrees QTc Int : 425 ms Normal sinus rhythm Early repolarization When compared with ECG of 18-MAR-2022 21:47, No significant change was found Confirmed by Sin Florian ([id number]) on 03/19/2022 1:47:02 PM Referred By: REFERRED SELF Confirmed By:Sin Florian
--- NOTE | 2022-03-19 13:52 | Electrocardiogram Report ---
Test Reason : Blood Pressure : / mmHG Vent. Rate : 080 BPM Atrial Rate : 080 BPM P-R Int : 196 ms QRS Dur : 090 ms QT Int : 370 ms P-R-T Axes : 055 038 030 degrees QTc Int : 426 ms Normal sinus rhythm ST elevation, consider early repolarization Borderline ECG When compared with ECG of 19-MAR-2022 01:13, No significant change was found Confirmed by Sin Florian ([id number]) on 03/19/2022 1:51:51 PM Referred By: REFERRED SELF Confirmed By:Sin Florian
[2022-03-19] MEDS: NICOTINE 21 MG/24 HR TDSY TD SCH (15:13)
[2022-03-20] MEDS: SODIUM CHLORIDE 0.9% 1000ML 1,000 ML IV SCH (04:44)
[2022-03-20 05:04] LABS: Hemoglobin 13.4 g/dl (14.0-18.0); Mean Corpuscular Hemoglobin 29.7 pg (25.0-34.0); Mean Corpuscular Hgb Conc 33.5 g/dL (32.0-36.0); Mean Corpuscular Volume 88.7 fL (80.0-100.0); Mean Platelet Volume 9.5 fL (9.4-12.4); Platelet Count 209 K/uL (130-400); RDW Coefficient of Variation 12.4 % (11.5-14.5); RDW Standard Deviation 40.4 fL (36.4-46.3); Red Blood Count 4.51 M/uL (4.63-6.08); White Blood Count 7.07 K/ul (4.8-10.8)
[2022-03-20 06:11] LABS: Alanine Aminotransferase 20 U/L (7-52); Albumin Globulin Ratio 1.9 (0.9-2); Albumin Level 3.8 gm/dl (3.4-5.0); Alkaline Phosphatase 56 U/L (34-104); Anion Gap 6 (3-11); Aspartate Aminotransferase 24 U/L (13-39); BUN Creatinine Ratio 12.1 (10-20); Bilirubin,Total 1.1 mg/dl (0.2-1.0); Blood Urea Nitrogen 8 mg/dl (6-23); Calcium 8.6 mg/dl (8.5-10.1); Carbon Dioxide 24 mmol/L (21-32); Chloride 113 mmol/L (98-107); Est GFR (African American) > 150.0 ml/min; Est GFR (Non-African American) 135.3 ml/min; Glucose 85 mg/dl (70-99(Fasting)); Potassium 3.5 mmol/L (3.5-5.1); Sodium 143 mmol/L (136-145); Total Protein 5.8 gm/dl (6.0-8.3)
[2022-03-20] MEDS: ENOXAPARIN INJ 40 MG/0.4 ML SYR SQ SCH (08:01)
[2022-03-20] MEDS: NICOTINE 21 MG/24 HR TDSY TD SCH (08:02)
--- NOTE | 2022-03-20 08:17 | Psychiatric Consultation ---
Date of Consultation March 20, 2022 Impression / Recommendations Impression This is a 26 yo admitted medically following an intentional overdose suicide attempt. Diagnostically consistent with MDD vs BPAD depressive episode in the context of recent stressors including conflict with his girlfriend and currently on parole. Acute risk of self-harm remains elevated and high given suicide attempt requiring medical admission, major depressive symptoms, impulsivity, hopelessness, limited insight, substance use. Given elevated risk of harm to self they meet criteria for inpatient psychiatric care for diagnostic clarification, safety/stabilization, development of additional coping skills, medication management and disposition/safety planning. he agrees to voluntary treatment, if he changes his mind he meets 302 criteria and petitioning statement available based on severity of suicide attempt and ongoing modifiable risk factors. (1) Intentional overdose: Encounter type: initial encounter Qualified Code(s): T50.902A - Poisoning by unspecified drugs, medicaments and biological substances, intentional self-harm, initial encounter (2) Mood disorder: (3) Depression: (4) Major depressive disorder: Plan -Continue 1-on-1 for risk of harm to self -Do not discharge or allow to leave AMA -Hold psych medications for now; has not been taking Elliott prior to admission and level reflects that -Psych liasons have begun bed search for psychiatric hospitalization-he prefers local facilities-[facility], [facility] or [facility] Risk Factors Assessment Do You Have Access To A Gun?: No Psych History Identifying Data 26 yo man with history of depression, BPAD, polysubstance use admitted medically following suicide attempt via olanzapine overdose requiring intubation. Psychiatry consulted for recommendations. Chief Complaint "Yeah we've been fighting more". History of Present Illness Grant admitted medically following suicide attempt via olanzapine overdose requiring intubation context of psychosocial stressors including conflict with his girlfriend, with whom he lives, statements she has made towards him that negatively impact his self-esteem and self-worth. Further recent history per psych liason notes on 03/19/22: "Patient seen on rounds, sleeping but arouses easily - alert and oriented x 4 - 1:1 at bedside - began eating dinner during interview, currently denies SI PHQ 7+1 - but states he took 100mg of Zyprexa after a fight with his ex-girlfriend in which "she told me to do it", patient states said ex has been calling him fat/ugly frequently as they are still in contact and after a fight he took 20 Zyprexa with an intent to overdose - he then called his dad to tell him he needed to go to the hospital - this was the last thing he remembers, denies hallucinations/delusions, patient confirmed he has a mental health history of bipolar and depression - last SA in 2007 - last inpatient stay at [facility] earlier this year - currently sees Ulises DENNY for medication management SCARLETT signed at this time, patient [place] alone but stays at his family's house alot who are local - refusing to sign SCARLETT for his father, he works at [employer] but denies current alcohol use, does endorse medical marijuana use "I have my card and use it daily", patient verbalizes understanding that Psychiatrist will round on him tomorrow and he would be agreeable to inpatient treatment if warranted but his biggest concern is "the last psych place I stayed at they strapped me with a five-thousand dollar bill", denies other needs at this time. PSY suicide screen scoring high - see assessment." Day he continues to endorse that the overdose was a suicide attempt and that it was due to conflict with his girlfriend with whom he lives. He is unsure of the current status of their relationship but feels like he is not going to want to live with her anymore. He denies any recent substance use but well in the room was noted to take through some of his items that his father had briefly brought in and take hit from his marijuana of 810 before this was noticed by the psychiatric liaison and nurses and removed. He is currently on probation due to what he describes as harassment charges. He denies suicidal ideation currently stating that he is glad to be alive but does continue to endorse depressive symptoms. He states the lithium he was prescribed by his outpatient psychiatric nurse practitioner does not seem to work and thus he is only taking it 1-2 times since he got it about a month ago. He has been consistently taking Zyprexa 20 mg nightly and he likes this as it "helps with sleep". He is experienced multiple traumatic events in the past including a [id number] who by suicide in finding his mother unresponsive initiating CPR when she in 2020. He is close with his father who he feels is a good support. He has been on Suboxone in the past and completed the substance use dual diagnosis [facility]. He is currently working at a local restaurant. He denies any prior suicide attempts states he has thought about it before but this is the first time he has acted on it. He has been found unresponsive in the past in the context of substance use. Past Psychiatric History Outpatient Services: Ulises Lagunas at [place] Previous Psych Admissions: Multiple most recently October 2021 on a 302 commitment at [facility] for depression and suicidal ideation prior to that [facility] in 2018 on a 201 commitment for suicidal ideation. Do You Have Access To A Gun?: No History of Previous Suicide Attempt: No Allergies Allergy/AdvReac Type Severity Reaction Status Date / Time No Known Allergies Allergy Unknown Verified 01/02/20 03:56 Home Medications Medication Instructions Recorded Confirmed Type olanzapine 20 mg tablet (Zyprexa) 20 mg PO DAILY #14 tabs 01/27/22 03/18/22 Rx Family History see HPI Substance Abuse History see HPI Personal History Childhood: Was in foster care around age 14 Highest Grade Completed: High School Graduate Employment Status: [employer] Employed Marital Status: Living w/ Signif. Other Beliefs That Will Affect Care: None Psychological Trauma History Comment: hx trauma Patient History Medical History Aggressive behavior Major depressive disorder Opiate dependence, continuous Puncture wound of hand Surgical History Surgical history unknown Family History Other No pertinent family history in first degree relatives Social History Smoking Status: Smoker, status unknown Tobacco Type: Cigarettes Hx Alcohol Use: Yes Alcohol type: hard liquor Hx Substance Use: Yes Last Used Substance: Just Prior to Arrival Preferred Language: [place] Communication Ability: Unable Vault Worker Required: No Beliefs That Will Affect Care: None marital status: Single Current Living Situation: Family Current Living Situation Comment: Lives with grandmother/father at times & his girlfriend "Audra" at others Other Information That Helps Us Care for You: No Feels Safe at Home: Declines to Answer Assistive Devices: None Physical Exam Psychiatric: Orientation: alert and oriented x 3 Apperance: appropriately dressed and appropriately groomed Eye Contact: good eye contact Motor Behavior: steady gait and station and no abnormal motor movements Speech: normal rate/rhythm/volume of speech Affect: + depressed affect Mood: + depressed mood Thought Process: goal directed thought process Thought Content: reality based without delusions Suicidal Thoughts: denies suicidal thoughts (Attempt leading to ICU admission and intubation) Homicidal Thoughts: denies homicidal thoughts Hallucinations: no auditory hallucinations and no visual hallucinations Cognition: recent memory grossly intact, remote memory grossly intact, attention grossly intact and language grossly intact Estimated Intelligence: consistent with education level Insight: + limited insight Judgement: + poor judgement Vital Signs (Past 24 Hours): Last Vital Signs Temp 36.9 C 03/20/22 03:00 Pulse 64 03/20/22 06:00 Resp 14 03/20/22 06:00 BP 103/57 L 03/20/22 06:00 Pulse Ox 95 03/20/22 06:00 O2 Del Method 03/19/22 16:00 O2 Flow Rate 3 03/19/22 14:00 FiO2 25 03/19/22 09:52 Review of Systems All systems reviewed & are unremarkable except as noted in HPI & below Results & Data (PSY) Medications Administered Enoxaparin Sodium (Enoxaparin Inj 40 Mg/0.4 Ml Syr) 40 mg SQ QAM [facility] Stop: 04/18/22 08:59 Last Admin: 03/20/22 08:01 Dose: 40 mg Documented By: Admin: 03/19/22 08:31 Dose: 40 mg Documented By: RAÚL Sodium Chloride (Nss 1000ml) 1,000 mls @ 125 mls/hr IV .Q8H [facility] Stop: 04/17/22 18:14 Last Admin: 03/20/22 04:44 Dose: 125 mls/hr Documented By: Infusion: 03/20/22 04:42 Dose: 125 mls/hr Documented By: Admin: 03/19/22 20:42 Dose: 125 mls/hr Documented By: Infusion: 03/19/22 20:16 Dose: 125 mls/hr Documented By: Admin: 03/19/22 12:16 Dose: 125 mls/hr Documented By: Infusion: 03/19/22 12:16 Dose: 125 mls/hr Documented By: Admin: 03/19/22 04:42 Dose: 125 mls/hr Documented By: Infusion: 03/19/22 04:42 Dose: 125 mls/hr Documented By: Admin: 03/18/22 20:58 Dose: 125 mls/hr Documented By: SPEEDY Miscellaneous (Remove Nicoderm Patch) 1 each N/A DAILY@0859 [facility] Stop: 04/19/22 08:58 Last Admin: 03/20/22 08:02 Dose: 1 each Documented By: BALA Nicotine (Nicotine 21 Mg/24 Hr Tdsy) 21 mg TD QAM [facility] Stop: 04/18/22 14:59 Last Admin: 03/20/22 08:02 Dose: 21 mg Documented By: Admin: 03/19/22 15:13 Dose: 21 mg Documented By: RAÚL Coding Level of Care Code 98982 Inpt Consult Level 4 Diagnoses Intentional overdose T50.902A Encounter type: initial encounter Mood disorder F39 Depression F32.A Major depressive disorder F32.9 Time Spent (min) 40
--- NOTE | 2022-03-20 09:32 | Critical Care Progress Note ---
Date of Service March 20, 2022 Assessment & Plan (1) Intentional overdose: Plan: Reason Critically Ill: 26-year-old male with significant history for mental health disorder as well as prior suicidal ideation with attempt who presents with acute polysubstance overdose with intent of self-harm PLAN: Neuro: Acute encephalopathy: Resolved Intentional drug overdose with intent of self-harm -Disposition per mental health Mood disorder -Significantly subtherapeutic lithium level Polysubstance overdose Marijuana positive Resp: Extubated 03/19 CV: Tachycardia -Resolved Fluids/Renal: No evidence of high gap metabolic acidosis ID: No indication for antibiotics at this time GI/Nutrition: 100 g activated charcoal with sorbitol 03/18 Heme: DVT prophylaxis: Lovenox 40 mg subcu Endocrine: ICU hyperglycemia protocol Vascular access: Peripheral IVs Code Status: Full code Disposition: One-to-one observation stable for downgrade out of ICU versus transfer to mental health (2) Polysubstance overdose: (3) History of suicidal ideation: (4) Acute encephalopathy: Admission and Anticipated Discharge Date Admission Date: March 18, 2022 Subjective Patient without complaint this morning Physical Exam Physical Exam: General: Alert. nontoxic. Skin: Warm, dry, Head: Atraumatic Ears, nose, mouth and throat: airway patent Cardiovascular: Normal peripheral perfusion Respiratory: no respiratory distress Gastrointestinal: Non distended Musculoskeletal: No deformity Results & Data Results & Data ([facility]) Vital Signs (Past 12 Hours) Vital Signs Temp Pulse Resp BP Pulse Ox 03/20/22 08:00 72 03/20/22 06:00 64 14 95 03/20/22 06:00 103/57 L 03/20/22 05:00 61 16 95 03/20/22 04:00 65 11 L 97 03/20/22 04:00 118/65 03/20/22 03:00 69 15 96 03/20/22 03:00 36.9 C 118/65 03/20/22 02:00 74 16 96 03/20/22 02:00 112/60 03/20/22 01:00 82 17 96 03/20/22 01:00 125/59 L 03/20/22 00:00 37 C 74 17 95 03/20/22 00:00 110/62 03/19/22 23:00 80 29 H 95 03/19/22 23:00 110/62 03/19/22 22:00 83 19 95 03/20/22 00:00 79 Critical Care Results & Data Vital Signs (Past 12 Hours) Vital Signs Temp Pulse Resp BP Pulse Ox 03/20/22 08:00 72 03/20/22 06:00 64 14 95 03/20/22 06:00 103/57 L 03/20/22 05:00 61 16 95 03/20/22 04:00 65 11 L 97 03/20/22 04:00 118/65 03/20/22 03:00 69 15 96 03/20/22 03:00 36.9 C 118/65 03/20/22 02:00 74 16 96 03/20/22 02:00 112/60 03/20/22 01:00 82 17 96 03/20/22 01:00 125/59 L 03/20/22 00:00 37 C 74 17 95 03/20/22 00:00 110/62 03/19/22 23:00 80 29 H 95 03/19/22 23:00 110/62 03/19/22 22:00 83 19 95 03/20/22 00:00 79 Lab & Micro Results (Past 24 Hours) RBC 4.51 M/uL (4.63-6.08) L 03/20/22 WBC 7.07 K/ul (4.8-10.8) 03/20/22 Hgb 13.4 g/dl (14.0-18.0) L 03/20/22 Hct 40.0 % (40.1-51.0) L 03/20/22 MCV 88.7 fL (80.0-100.0) 03/20/22 MCH 29.7 pg (25.0-34.0) 03/20/22 MCHC 33.5 g/dL (32.0-36.0) 03/20/22 RDW Standard Deviation 40.4 fL (36.4-46.3) 03/20/22 RDW Coefficient of Variation 12.4 % (11.5-14.5) 03/20/22 Plt Count 209 K/uL (130-400) 03/20/22 MPV 9.5 fL (9.4-12.4) 03/20/22 Na 143 mmol/L (136-145) 03/20/22 K 3.5 mmol/L (3.5-5.1) 03/20/22 Cl 113 mmol/L (98-107) H 03/20/22 CO2 24 mmol/L (21-32) 03/20/22 Anion Gap 6 (3-11) 03/20/22 BUN 8 mg/dl (6-23) 03/20/22 Creatinine 0.66 mg/dl (0.6-1.4) 03/20/22 Estimated GFR ( Amer) > 150.0 ml/min 03/20/22 Estimated GFR (Non-Af Amer) 135.3 ml/min 03/20/22 BUN/Creatinine Ratio 12.1 (10-20) 03/20/22 Glu 85 mg/dl (70-99(Fasting)) 03/20/22 Ca 8.6 mg/dl (8.5-10.1) 03/20/22 Total Bilirubin 1.1 mg/dl (0.2-1.0) H 03/20/22 AST 24 U/L (13-39) 03/20/22 ALT 20 U/L (7-52) 03/20/22 Alkaline Phosphatase 56 U/L (34-104) 03/20/22 TP 5.8 gm/dl (6.0-8.3) L 03/20/22 Albumin 3.8 gm/dl (3.4-5.0) 03/20/22 Globulin 2.0 gm/dl (2.5-4.0) L 03/20/22 Albumin/Globulin Ratio 1.9 (0.9-2) 03/20/22 Calcium Level 8.6 mg/dl (8.5-10.1) 03/20/22 04:41 I & O Totals 24 Hours 03/19/22 03/20/22 03/21/22 06:59 06:59 06:59 Intake Total 2245.597 / 2245.597 4831.416 / 4831.416 Output Total 900 / 900 3630 / 3630 Balance 1345.597 / 7550.286 5658.416 / 1201.416 Cumulative 03/18/22 16:10 thru 03/20/22 05:57 Intake Total 7077.013 Output Total 4530 Balance 2547.013 RT Ventilator Mngmt (Last Documented) Ventilator Ordered Settings Ventilator Support Mode CPAP 03/19/22 09:52 Respiratory Rate 14 03/20/22 06:00 Ventilator Tidal Volume 500 03/19/22 08:00 Setting Minute Ventilation 8 03/19/22 07:15 Ventilator Positive Pressure 8 03/19/22 09:52 Support Setting Positive End Expiratory 5 03/19/22 09:52 Pressure Fraction of Inspired Oxygen 25 03/19/22 09:52 Ventilator - PT Measurements Respiratory Rate 14 Exhaled Tidal Volume 541 Minute Ventilation 8 Peak Inspiratory Airway 18 Pressure Plateau Pressure 15 Respiratory Cycle Inspiratory: 1:2.8 Expiratory Ratio Inspiratory Phase Time 1.0 End-Tidal CO2 38 Static Lung Compliance 50.00 Dynamic Lung Compliance 38.46 Normal Static Lung Compliance 48.00 Patient Measurements Comment Patient switched to SBT 0949 with verbal ok to extubate per Aleksandra, patient extremely uncomfortable once switched to CPAP and trying to grab the tube, unable to record other weaning parameters or measurements off of ventilator at this time. RN at bedside with RT for extubation 951. Patient extuabted to 2L Oxymask sats 97% HR 120. No stridor present post extubation, coarse sounds heard in the back of the throat with the patient coughing up thick secretions. Plan to leave ventilator in room just in case and pull and clean machine if no respiratory distress occurs. Coding Level of Care Code 04832 Subseq Hosp Care Lvl 1 Diagnoses Intentional overdose T50.902A Encounter type: initial encounter Polysubstance overdose T50.902A Encounter type: initial encounter Injury intent: intentional self-harm History of suicidal ideation Z86.59 Acute encephalopathy G93.40 (1) Intentional overdose Encounter type: initial encounter Qualified Code(s): T50.902A - Poisoning by unspecified drugs, medicaments and biological substances, intentional self-harm, initial encounter (2) Polysubstance overdose Encounter type: initial encounter Injury intent: intentional self-harm Qualified Code(s): T50.902A - Poisoning by unspecified drugs, medicaments and biological substances, intentional self-harm, initial encounter
--- NOTE | 2022-03-20 15:14 | Hospitalist Progress Note ---
Date of Service March 20, 2022 Assessment & Plan (1) Intentional overdose: (2) Aggressive behavior: (3) Mood disorder: (4) History of suicidal ideation: (5) Substance abuse: Plan Patient is a 26 yr male with H/O bipolar disorder, history of aggressive behavior and suicide attempts, polysubstance abuse including marijuana and opioids in the past who presents after intentional overdose per report from family. Intentional overdose Suicidal Attempt Acute Toxic/Metabolic encephalopathy S/P Extubation on 03/19/22 H/O suicidal attempts in the past, Opioid dependence as per records Toxicology Screen: Positive for THC Patient admits to taking 20 tablets of Zyprexa Poison control informed Appreciate critical care input Continue 1:1 observation Suicidal precautions Appreciate psychiatry Input States having a medical marijuana card Patient is a candidate for inpatient psychiatric management Can not sign out AMA H/O Bipolar disorder Recent prescription history includes 30 tabs of olanzapine 20mg filled on March 12 and lithium 300mg ER 60 tabs filled 03/08 Subtherapeutic lithium level Non Compliance Patient admits to not taking [place] for about 1 month H/O polysubstance abuse Major depression Anxiety disorder Tobacco use disorder Hold home meds for now DVT Px: Lovenox SQ Code Status Full Code Admission and Anticipated Discharge Date Admission Date: March 18, 2022 Subjective Patient is seen and examined at bedside States feeling better today Sitter at bedside Denies any chest pain, shortness of breath, dizziness, nausea, abdominal pain Discussed with Psychiatry today Review of Systems Review of Systems: All systems reviewed & are unremarkable except as noted in Subjective Physical Exam Physical Exam: Physical Exam: Vitals signs as noted above General Appearance:Moderately built and nourished, no apparent distress Head: normocephalic, Atraumatic Eyes: normal inspection, EOMI Neck: supple, Trachea midline Respiratory/Chest: Normal breath sounds, CTA, No accessory muscle use Cardiovascular: S1, S2, No murmur Abdomen/GI:Soft, Non tender, Bowel sounds present Extremities/Musculoskeletal:normal inspection, no edema Neurologic/Psych:AAOX3, grossly no focal neurological deficits Skin: normal color, warm Results & Data Results & Data ([facility]) Vital Signs (Past 12 Hours) Vital Signs Temp Pulse Resp BP Pulse Ox O2 Del Method 03/20/22 13:00 101 H 20 95 03/20/22 13:00 92/53 L 09/09/22 12:00 88 19 96 03/20/22 12:00 117/62 03/20/22 11:00 86 18 95 03/20/22 11:00 132/81 03/20/22 10:00 76 19 94 03/20/22 10:00 114/68 03/20/22 09:00 75 15 96 03/20/22 09:00 123/71 03/20/22 08:00 69 14 96 03/20/22 08:00 114/67 03/20/22 07:00 59 L 3 L 96 03/20/22 07:00 101/56 L 03/20/22 12:14 37.3 C 03/20/22 08:00 Room Air 03/20/22 08:00 72 03/20/22 06:00 64 14 95 03/20/22 06:00 103/57 L 03/20/22 05:00 61 16 95 03/20/22 04:00 65 11 L 97 03/20/22 04:00 118/65 Laboratory Results Short CBC 03/20/22 Range/Units 04:41 WBC 7.07 (4.8-10.8) K/ul Hgb 13.4 L (14.0-18.0) g/dl Hct 40.0 L (40.1-51.0) % Plt Count 209 (130-400) K/uL BMP 03/20/22 04:41 Sodium 143 Potassium 3.5 Chloride 113 H Carbon Dioxide 24 BUN 8 Creatinine 0.66 Glucose 85 Calcium 8.6 Liver Function 03/20/22 Range/Units 04:41 Total Bilirubin 1.1 H D (0.2-1.0) mg/dl AST 24 (13-39) U/L ALT 20 (7-52) U/L Alkaline Phosphatase 56 (34-104) U/L Albumin 3.8 (3.4-5.0) gm/dl (1) Intentional overdose Encounter type: initial encounter Qualified Code(s): T50.902A - Poisoning by unspecified drugs, medicaments and biological substances, intentional self-harm, initial encounter
[2022-03-20] MEDS ORDERED: MELATONIN 3 MG TAB PO PRN (21:10)
[2022-03-21 07:47] LABS: Marijuana Quant, GCMS Urine 743 ng/mL (<5)
[2022-03-21] MEDS: NICOTINE 21 MG/24 HR TDSY TD SCH (08:17)
[2022-03-21] MEDS: ENOXAPARIN INJ 40 MG/0.4 ML SYR SQ SCH (08:19)
--- NOTE | 2022-03-21 12:13 | Hospitalist Progress Note ---
Date of Service March 21, 2022 Assessment & Plan (1) Intentional overdose: (2) Aggressive behavior: (3) Mood disorder: (4) History of suicidal ideation: (5) Substance abuse: Plan Patient is a 26 yr male with H/O bipolar disorder, history of aggressive behavior and suicide attempts, polysubstance abuse including marijuana and opioids in the past who presents after intentional overdose per report from family. Intentional overdose Suicidal Attempt Acute Toxic/Metabolic encephalopathy S/P Extubation on 03/19/22 H/O suicidal attempts in the past, Opioid dependence as per records Toxicology Screen: Positive for THC Patient admits to taking 20 tablets of Zyprexa Poison control informed Appreciate critical care input Continue 1:1 observation Suicidal precautions Appreciate psychiatry Input States having a medical marijuana card Patient is a candidate for inpatient psychiatric management Can not sign out AMA Plan to be discharged to [facility] today H/O Bipolar disorder Recent prescription history includes 30 tabs of olanzapine 20mg filled on March 12 and lithium 300mg ER 60 tabs filled 03/08 Subtherapeutic lithium level Non Compliance Patient admits to not taking [place] for about 1 month H/O polysubstance abuse Major depression Anxiety disorder Tobacco use disorder Hold home meds for now DVT Px: Lovenox SQ Code Status Full Code Admission and Anticipated Discharge Date Admission Date: March 18, 2022 Subjective Patient is seen and examined at bedside Doing well today No new complaints Sitter at bedside Denies any chest pain, shortness of breath, dizziness, nausea, abdominal pain Discussed with Psychiatry today Plan to be discharged today Review of Systems Review of Systems: All systems reviewed & are unremarkable except as noted in Subjective Physical Exam Physical Exam: Physical Exam: Vitals signs as noted above General Appearance:Moderately built and nourished, no apparent distress Head: normocephalic, Atraumatic Eyes: normal inspection, EOMI Neck: supple, Trachea midline Respiratory/Chest: Normal breath sounds, CTA, No accessory muscle use Cardiovascular: S1, S2, No murmur Abdomen/GI:Soft, Non tender, Bowel sounds present Extremities/Musculoskeletal:normal inspection, no edema Neurologic/Psych:AAOX3, grossly no focal neurological deficits Skin: normal color, warm (1) Intentional overdose Encounter type: initial encounter Qualified Code(s): T50.902A - Poisoning by unspecified drugs, medicaments and biological substances, intentional self-harm, initial encounter
--- NOTE | 2022-03-21 12:22 | Discharge Summary ---
Date of Service March 21, 2022 Admission HPI Per Admitting Provider Chief Complaint: Intentional overdose Primary Care Provider: NO PCP This is a 26-year-old male with past medical history of bipolar disorder, history of aggressive behavior and suicide attempts, polysubstance abuse including marijuana and opioids in the past who presents after intentional overdose per report from family. Father reports that patient was attempting to overdose and kill himself by taking a lot of pills at once. Sister believes patient took over 20 Ativan pills (strength unknown) although is not sure. Patient is also prescribed olanzapine which he had recently ran out of Per ER note from 03/11/2022 when he presented in a manic state. Recently was broken up with by girlfriend. Patient reportedly aggressive and violent towards staff in ED receiving ativan, benadryl and haldol before propofol drip initiated. Patient examined while intubated and sedated. Dr. Lake from ICU already examined at bedside and accepted for ICU for further management. Unable to obtain ROS from patient due to sedated state. Tox screen negative except for marijuana. Admission Exam Per Admitting Provider Physical Exam Physical Exam: General Appearance:WD/WN, vitals as above, intubated and sedated in 4 point restraints Head: normocephalic, atraumatic Eyes:PERRL, conjunctivae normal, anicteric sclerae ENT: external ear and nose normal, oropharynx normal Neck: normal visual inspection, trachea midline, no thyromegaly Respiratory:normal respiratory effort, lungs clear to auscultation, no wheeze, rales, rhonchi. No accessory muscle use Cardiovascular: tachycardic rate, regular rhythm, no murmur, normal peripheral pulses, no BLE edema Chest: normal inspection of chest Abdomen/GI: normal bowel sounds, soft, nontender, no hepatosplenomegaly Extremities/Musculoskeletal: no cyanosis or clubbing, extremities motor str ength 5/5 Neurologic/psychiatric: Intubated and sedated Skin: no rashes, normal color, warm/dry Principal Diagnosis Intentional overdose Major Depressive disorder Discharge Data Allergies Allergy/AdvReac Type Severity Reaction Status Date / Time No Known Allergies Allergy Unknown Verified 01/02/20 03:56 Consultations 03/18/22 17:49 ED Decision to Admit Stat 03/18/22 20:08 Consult Manager Call Center Routine 03/19/22 14:50 Consult Psychiatry Routine Procedures Performed CXR: FINDINGS: An AP, portable, supine chest radiograph is compared to study dated 08/12/2019. An endotracheal tube has been placed. The tip of the catheter projects 3.5 cm above the samira. An enteric tube has been placed. The tip projects below the diaphragm and is not visualized. The cardiomediastinal silhouette is unremarkable. The lungs and pleural spaces are clear. No pneumothorax is seen. T he bony thorax is grossly intact. IMPRESSION: 1. Endotracheal and enteric tube placement as above. 2. The lungs appear clear. KUB CLINICAL HISTORY: Enteric tube placement. FINDINGS: An AP, portable, supine view of the lower chest and upper abdomen is correlated with abdominal CT dated 01/02/2020. An enteric tube has been placed. The tip projects below the diaphragm over the distal stomach. There is no evidence of bowel obstruction or intraperitoneal free air on the provided image. The lung bases are clear as visualized. IMPRESSION: Enteric tube placement as above. Hospital Course (1) Intentional overdose: (2) Aggressive behavior: (3) Mood disorder: (4) History of suicidal ideation: (5) Substance abuse: Plan Patient is a 26 yr male with H/O bipolar disorder, history of aggressive behavior and suicide attempts, polysubstance abuse including marijuana and opioids in the past who presents after intentional overdose per report from family. Intentional overdose Suicidal Attempt Acute Toxic/Metabolic encephalopathy S/P Extubation on 03/19/22 H/O suicidal attempts in the past, Opioid dependence as per records Toxicology Screen: Positive for THC Patient admits to taking 20 tablets of Zyprexa Poison control informed Appreciate critical care input Continue 1:1 observation Suicidal precautions Appreciate psychiatry Input States having a medical marijuana card Patient is a candidate for inpatient psychiatric management Can not sign out AMA Plan to be discharged to [facility] H/O Bipolar disorder Recent prescription history includes 30 tabs of olanzapine 20mg filled on March 12 and lithium 300mg ER 60 tabs filled 03/08 Subtherapeutic lithium level Non Compliance Patient admits to not taking [place] for about 1 month H/O polysubstance abuse Major depression Anxiety disorder Tobacco use disorder Hold home meds for now DVT Px: Lovenox SQ Code Status Full Code Total Time Total Time Spent Total Time Spent (In Minutes): 40 minutes Discharge Plan Discharge Items Patient Disposition: Transfer Behavioral Health Fac Reason For Visit: OVERDOSE, AMS Discharge Diagnosis: Intentional overdose Major Depressive disorder Activity: Per Instructions section Exercise/Sports: Gradually increase as tolerated Non-emergency contact: Primary Care Provider and Psychiatrist Call non-emergency contact if: you have any medication questions, your symptoms worsen, your pain is concerning for you and you have a fever Follow-up/Referrals: PCP,NO [Primary Care Provider] - Diet: Regular Addtl Attending Provider Instructions: Follow-up with your primary care physician in 1 week Follow-up with your psychiatrist in 1 week --Your Medications will be adjusted by your Psychiatrist at [facility] Seek immediate medical attention if your symptoms reoccur or worsen Please take all medications as instructed on discharge list below. Please call if you have any questions or problems. You can reach a [facility] hospitalist on duty at [facility] 24 hours a day by calling [phone] Pending Studies at Discharge: No Stand-Alone Forms: My [facility] Medications and DC Order Prescriptions: Discontinued olanzapine [Zyprexa] 20 mg tablet 20 mg PO DAILY Qty: 14 0RF Discharge Orders: Discharge Order (Routine); Ordered 03/21/22 Ordered By: Barry Han Admission Data Admit Date/Time: 03/18/22 17:56 Attending Provider: Barry Han Admit Provider: Joshua Chopra Primary Care Provider: PCP,NO Other Providers: Joshua Chopra ; Daniel Lake ; Viktoriya Johnson ; Lindsay Vivar ; Shirley Williamson
== END 2022-03-21 16:12 | DRG 917 ==
LOC: ED 16:10 → SUATTDRO 17:56 → 1E 17:56 → 3W 03-20 17:58

== ENCOUNTER 2025-01-17 09:46 | Inpatient (IN) ==
--- NOTE | 2025-01-17 10:10 | Emergency Department Note ---
History of Present Illness General Chief complaint: Vomiting Stated complaint: STOMACH,VOMITING BLOOD Time Seen by Provider: 01/17/25 09:52 History of Present Illness Maximum Pain Intensity: 7 This is a 29-year-old male that presents to the emergency department via private vehicle with complaints of "vomiting blood". The patient notes last evening he began with nausea followed by generalized abdominal discomfort and vomiting. He states that he has vomited at least 20 times since last evening. He notes bright red substance which he believes is blood in the emesis initially and now notes that the emesis is with red streaks. He now notes pain radiating from the abdomen into his chest. Current pain /. No anticoagulant use. He denies any NSAID use. He denies any history of gastric bypass or stomach ulcers. He denies any fevers or chills. No diarrhea. No close contacts with similar symptoms. Home Medications Medication Instructions Recorded Confirmed Type aripiprazole 30 mg tablet 30 mg PO DAILY 11/03/24 11/03/24 History bupropion HCl 300 mg 24 hr tablet, 300 mg PO DAILY 11/03/24 11/03/24 History extended release oxcarbazepine 300 mg tablet 300 mg PO BID 11/03/24 11/03/24 History quetiapine 100 mg tablet 50 - 200 mg PO DIRECTED PRN 11/03/24 11/03/24 History NEEDED Allergies Allergy/AdvReac Type Severity Reaction Status Date / Time No Known Allergies Allergy Unknown Verified 11/03/24 16:04 Past Med/Surg History Problem List (Updated 01/17/25 @ 16:15 by Nehemiah Presley PA-C) Persistent vomiting (Acute) Hematemesis (Acute) Pneumomediastinum (Acute) COVID-19 (Acute) Polysubstance overdose (Acute) Overdose (Acute) Tobacco abuse History of suicidal ideation Unresponsive episode (Acute) Opiate dependence, continuous (Acute) Major depressive disorder Aggressive behavior (Acute) Medical History Intentional overdose Substance abuse Surgical History No pertinent past surgical history Family History Other No pertinent family history in first degree relatives Social History Smoking Status: Current every day smoker Tobacco Type: Cigarettes Do You Dip or Chew Tobacco: No; Hx Alcohol Use: Yes Alcohol type: hard liquor Hx Substance Use: Yes Last Used Substance: Just Prior to Arrival Preferred Language: Indonesian Communication Ability: Unable Fish Peddler Required: No Beliefs That Will Affect Care: None marital status: Single Current Living Situation: Family Current Living Situation Comment: Lives with grandmother/father at times & his girlfriend "Audra" at others Feels Safe at Home: Yes Gender Identity: Male Assistive Devices: None Review of Systems A total of 10 systems reviewed and were otherwise negative Physical Exam Vital Signs Vital Signs - 24 hr 01/17/25 09:49 01/17/25 10:21 01/17/25 10:21 Temperature 36.5 C Temperature Source Temporal Artery Scan Pulse Rate 63 Pulse Rate [Apical] 49 L Pulse Rhythm [Apical] Pulse Strength [Apical] Respiratory Rate 18 18 Respiratory Effort / Characteristics Non-Labored Spontaneous Respiratory Depth Normal Respiratory Pattern Regular Blood Pressure 141/71 H Blood Pressure [Left Arm] 159/83 H Blood Pressure Mean 94 Blood Pressure Mean [Left Arm] 108 Blood Pressure Position [Left Arm] Pulse Oximetry 100 95 100 Oxygen Delivery Method Room Air Sepsis Recent Fever Within 48 Hours No Sepsis New/Unexplained Change in Mental Status N/A Sepsis Action Taken by Nursing No Action Required 01/17/25 10:48 01/17/25 12:00 Temperature Temperature Source Pulse Rate Pulse Rate [Apical] 53 L 62 Pulse Rhythm [Apical] Regular Pulse Strength [Apical] Normal Respiratory Rate 18 20 Respiratory Effort / Characteristics Non-Labored Spontaneous Respiratory Depth Normal Respiratory Pattern Regular Blood Pressure Blood Pressure [Left Arm] 156/86 H 129/81 Blood Pressure Mean Blood Pressure Mean [Left Arm] 109 97 Blood Pressure Position [Left Arm] Lying Pulse Oximetry 99 96 Oxygen Delivery Method Room Air Sepsis Recent Fever Within 48 Hours Sepsis New/Unexplained Change in Mental Status Sepsis Action Taken by Nursing VITAL SIGNS - Vital signs and nursing notes were reviewed. Hypertensive, otherwise stable and afebrile. GENERAL -29-year-old male appearing his stated age who is in no acute distress but is laying in a prone position on the bed, holding the abdomen with his hand. Communicates well with provider and answers questions appropriately. SKIN - Without rashes. No meningeal or petechial rash. HEAD - NC/AT. EYES - PERRL with EOMI bilaterally. Sclera anicteric. Palpebral conjunctiva pink and moist with no injection noted. EARS - No deformities of external structures noted on gross examination bilaterally. NOSE - Midline and without cyanosis. No epistaxis or purulent drainage noted. MOUTH/OROPHARYNX - Without perioral cyanosis. Buccal mucosa pink and moist and without leukoplakia. Tongue midline with equal elevation of palate bilaterally. No tonsillar hypertrophy, erythema, or exudates noted. Fair dentition noted. No blood in the posterior pharynx. NECK - Neck with FROM. No nuchal rigidity. LUNGS - Chest wall symmetric without accessory muscle use, intercostals retractions, or central cyanosis. Normal vesicular breath sounds CTA B/L. No wheezes, rales, or rhonchi appreciated. CARDIAC - RRR with S1/S2. No murmur, rubs, or gallops appreciated. ABDOMEN - Abdominal contour normal without pulsations or visible masses. BS normoactive all four quadrants. There is generalized abdominal tenderness to palpation. No palpable masses, hepatosplenomegaly, or ascites noted. EXTREMITIES - No clubbing or peripheral cyanosis. +5/5 strength noted in UE/LE bilaterally. NEUROLOGIC - Cranial nerves II through XII grossly intact. PSYCH -alert, oriented and pleasant on exam Course Administered Medications Pantoprazole Sodium 40 mg/ (Dextrose) 100 mls @ 20 mls/hr IV Q5H RAOUL Stop: 02/16/25 10:29 Last Admin: 01/17/25 15:46 Dose: 8 mg/hr, 20 mls/hr Documented By: Infusion: 01/17/25 15:34 Dose: Infused Documented By: Admin: 01/17/25 10:38 Dose: 8 mg/hr, 20 mls/hr Documented By: SOCRATES Discontinued Medications Sodium Chloride (Nss) 1,000 mls @ 999 mls/hr IV .Q1H1M ONE Stop: 01/17/25 10:59 Last Infusion: 01/17/25 12:53 Dose: Infused Documented By: Admin: 01/17/25 10:14 Dose: 999 mls/hr Documented By: SOCRATES Pantoprazole Sodium 80 mg/ (Dextrose) 120 mls @ 480 mls/hr IV NOW ONE Stop: 01/17/25 10:15 Last Infusion: 01/17/25 12:52 Dose: Infused Documented By: Admin: 01/17/25 10:38 Dose: 480 mls/hr Documented By: SOCRATES Ioversol (Optiray 320 100ml) 94 ml IV ONCE ONE Stop: 01/17/25 11:21 Last Admin: 01/17/25 11:20 Dose: 94 ml Documented By: LUCAS Ondansetron HCl (Ondansetron Inj 2 Mg/Ml 2 Ml Vial) 4 mg IV NOW STA Stop: 01/17/25 10:00 Last Admin: 01/17/25 10:14 Dose: 4 mg Documented By: SOCRATES Pantoprazole Sodium (Pantoprazole Bolus/Drip) 1 each IV NOW STA Stop: 01/17/25 10:02 Last Admin: 01/17/25 10:40 Dose: Not Given Documented By: SOCRATES Sucralfate (Sucralfate 1 Gm/10 Ml Udc) 1 gm PO NOW ONE Stop: 01/17/25 13:31 Last Admin: 01/17/25 14:21 Dose: 1 gm Documented By: FRANKLIN Medical Decision Making Laboratory Data 01/17/25 15:47 01/17/25 10:09 Lab Results 01/17/25 01/17/25 Range/Units 10:09 11:46 WBC 9.84 (4.8-10.8) K/ul RBC 5.41 (4.70-6.10) M/uL Hgb 16.1 (14.0-18.0) g/dl Hct 46.1 (42.0-52.0) % MCV 85.2 (80.0-100.0) fL MCH 29.8 (25.0-34.0) pg MCHC 34.9 (32.0-36.0) g/dL RDW Std Deviation 37.2 (36.4-46.3) fL RDW Coeff of Osiel 12.2 (11.5-14.5) % Plt Count 295 (130-400) K/uL MPV 9.9 (9.4-12.4) fL Immature Gran % (Auto) 0.4 % Neut % (Auto) 82.2 % Lymph % (Auto) 12.3 % [place] % (Auto) 3.8 % Eos % (Auto) 0.9 % Baso % (Auto) 0.4 % Neut # (Auto) 8.09 H (1.40-6.50) K/uL Lymph # (Auto) 1.21 (1.20-3.40) K/uL [place] # (Auto) 0.37 (0.11-0.59) K/uL Eos # (Auto) 0.09 (0.00-0.50) K/uL Baso # (Auto) 0.04 (0.00-0.20) K/uL Immature Gran # (Auto) 0.04 (0.01-0.20) K/uL PT Cancelled 11.4 INR Cancelled 1.1 APTT Cancelled 30 PTT Ratio Cancelled 1.1 Sodium 139 (136-145) mmol/L Potassium 3.8 (3.5-5.1) mmol/L Chloride 101 (98-107) mmol/L Carbon Dioxide 29 (21-32) mmol/L Anion Gap 9 (3-11) BUN 15 (6-23) mg/dl Creatinine 0.74 (0.6-1.4) mg/dl Est Cr Clr Drug Dosing 175.8 ml/min eGFR 127.36 BUN/Creatinine Ratio 20.3 H (10-20) Glucose 140 H (70-99(Fasting)) mg/dl Calcium 9.5 (8.6-10.3) mg/dl Magnesium 2.2 (1.7-2.4) mg/dl Total Bilirubin 0.9 (0.2-1.0) mg/dl AST 27 (13-39) U/L ALT 43 (7-52) U/L Alkaline Phosphatase 67 (34-104) U/L Troponin I High Sens 9.4 (0-20) pg/ml Total Protein 7.7 (6.0-8.3) gm/dl Albumin 4.8 (3.4-5.0) gm/dl Globulin 2.9 (2.5-4.0) gm/dl Albumin/Globulin Ratio 1.7 (0.9-2) Lipase 12 (11-82) U/L Blood Type A Positive Antibody Screen NEGATIVE Imaging Data Radiologist's Impression: Chest CT 01/17/25 09:59 CT SCAN OF THE CHEST WITH IV CONTRAST CLINICAL HISTORY: Hematemesis. Chest pain. COMPARISON STUDY: Chest radiograph June 20, 2022. TECHNIQUE: Following the IV administration of 94 cc of Optiray 320, CT scan of the thorax was performed from the thoracic inlet to the upper abdomen. Images are reviewed in the axial, sagittal, and coronal planes. IV contrast was administered without complication. A dose lowering technique was utilized adhering to the principles of ALARA. Water-soluble contrast was ingested immediately prior to the CT. CT DOSE: 2482.75 mGy.cm FINDINGS: No pulmonary emboli are identified. There is no thoracic aortic dissection. Size of the heart is normal. There is no pericardial effusion. A small amount of pneumomediastinum is present. No oral contrast extravasation is identified. There is no pneumothorax or pleural effusion. Areas of mosaic attenuation within the lower lungs are present. Abdomen and pelvis CT will be reported separately. There is hepatic steatosis. IMPRESSION: 1. Small amount of pneumomediastinum. No oral contrast extravasation to suggest full-thickness esophageal tear. No pneumothorax. 2. No consolidation to suggest pneumonia.. 3. Areas of mosaic attenuation within the lower lungs which may represent air trapping. ACT 112: Negative or not required by law. Electronically signed by: Neal Vogt M.D. 01/17/2025 11:50 AM Abdomen/Pelvis CT 01/17/25 10:01 CT SCAN OF THE ABDOMEN AND PELVIS WITH IV CONTRAST CLINICAL HISTORY: Hematemesis. Abdominal pain. COMPARISON STUDY: CT of the abdomen and pelvis May 31, 2022. TECHNIQUE: Following the IV administration of 94 cc of Optiray 320, CT scan of the abdomen and pelvis is performed from the lung bases to the proximal femora. Images are reviewed in the axial, sagittal, and coronal planes. IV contrast was administered without complication. A dose lowering technique was utilized adhering to the principles of ALARA. Water-soluble oral contrast was also administered. FINDINGS: A small amount of pneumomediastinum is better depicted on the chest CT. No pneumatosis, free air or portal venous gas is present. There is hepatic steatosis. The spleen, adrenal glands, kidneys and pancreas are unremarkable. There is no biliary or pancreatic ductal dilatation. Caliber and wall thickness of small and large bowel are normal. The appendix is normal. Major vasculature is patent. There is no lymphadenopathy. There is no free fluid. IMPRESSION: 1. Small amount of pneumomediastinum better depicted on the chest CT which will be reported separately. 2. No acute process within the abdomen or pelvis. 3. Hepatic steatosis. 4. No bowel obstruction. No bowel wall thickening. Normal appendix. ACT 112: Negative or not required by law. Electronically signed by: Neal Vogt M.D. 01/17/2025 12:22 PM MDM Narrative Patient was seen and evaluated as above in room . Review was performed of nursing notes and vital signs. I did review pertinent previous visits and patient history. After obtaining a thorough history and physical examination the above work up was performed. Patient presents to us today with subjective blood in the emesis. He notes he has vomited about 20 times since last evening when his symptoms began. He has associated abdominal pain and chest pain. Patient appears to be in pain, is in a prone position on the bed holding the abdomen. Options of care were discussed with the patient. IV access was established. Labs were drawn. No leukocytosis or concerning anemia. No emergent metabolic disturbance. Type and screen ordered. CT scan of the chest was obtained but while the patient was simultaneously drinking oral contrast to evaluate the esophagus and also abdomen/pelvis CT scan. Results as above. There is a small pneumomediastinum without oral contrast extravasation to suggest full-thickness tear. No pneumothorax. I did order IV bolus and drip of pantoprazole. IV fluids and antiemetics also ordered. EKG per my interpretation reveals sinus bradycardia with sinus arrhythmia at a rate of 58 bpm. QTc 428. QRS 96. No ST elevation on this rhythm tracing. 1222: I spoke with GI. I will proceed with medical admission. GI will consult on the patient. 1341: I spoke with Dr. Tineo of pulmonology. We discussed the small pneumomediastinum. The patient does not toxic in appearance. There is no WBC elevation. There is no fever. We discussed how the patient does not clinically appear to have mediastinitis at this time. Plan at this time is medical admission to the hospital. Case discussed with the hospitalist service. Please refer to further documentation regarding his stay. GCS: 15 In the evaluation and treatment of this patient the following differential diagnoses were entertained: Esophageal tear, pneumomediastinum, upper GI bleed, bowel obstruction, among others Impression & Plan Pneumomediastinum, Hematemesis, Persistent vomiting Discharge Plan Visit Data Chief Complaint: Vomiting Stated Complaint: STOMACH,VOMITING BLOOD ED Provider: Key,Haroldo J. ED Midlevel Provider: Nehemiah Presley Discharge Problem: Pneumomediastinum, Hematemesis, Persistent vomiting Patient Disposition: Admitted As Inpatient Condition: Good Discharge Instructions Interventions: ED Discharge Assessment Last Done: 01/17/25 15:28
[2025-01-17] MEDS: ONDANSETRON INJ 2 MG/ML 2 ML VIAL IV STA (10:14)
[2025-01-17] MEDS: SODIUM CHLORIDE 0.9% 1,000 ML IV ONE (10:14)
[2025-01-17] MEDS: PANTOprazole 40 MG in DEXTROSE 5% MINI-B 100 ML IV SCH ×2 (10:38→17:45)
[2025-01-17] MEDS: PANTOPRAZOLE BOLUS/DRIP IV STA (10:40)
[2025-01-17 10:41] LABS: Hematocrit (blood only) 46.1 % (42.0-52.0); Hemoglobin 16.1 g/dl (14.0-18.0); Immature Granulocytes # (auto) 0.04 K/uL (0.01-0.20); Immature Granulocytes % (auto) 0.4 %; Mean Corpuscular Hemoglobin 29.8 pg (25.0-34.0); Mean Corpuscular Volume 85.2 fL (80.0-100.0); Platelet Count 295 K/uL (130-400); RDW Standard Deviation 37.2 fL (36.4-46.3); Red Blood Count 5.41 M/uL (4.70-6.10); White Blood Count 9.84 K/ul (4.8-10.8)
[2025-01-17 11:00] LABS: Alanine Aminotransferase 43.0 U/L (7-52); Albumin Globulin Ratio 1.7 (0.9-2); Alkaline Phosphatase 67.0 U/L (34-104); Anion Gap 9.0 (3-11); Bilirubin,Total 0.9 mg/dl (0.2-1.0); Blood Urea Nitrogen 15.0 mg/dl (6-23); Calcium 9.5 mg/dl (8.6-10.3); Carbon Dioxide 29.0 mmol/L (21-32); Chloride 101.0 mmol/L (98-107); Creatinine Clr Calc Pharmacy 175.8 ml/min; Globulin 2.9 gm/dl (2.5-4.0); Glucose 140.0 mg/dl (70-99(Fasting)); Lipase 12.0 U/L (11-82); Magnesium 2.2 mg/dl (1.7-2.4); Potassium 3.8 mmol/L (3.5-5.1); Sodium 139.0 mmol/L (136-145); Total Protein 7.7 gm/dl (6.0-8.3)
[2025-01-17] MEDS: OPTIRAY 320 100ml IV ONE (11:20)
--- NOTE | 2025-01-17 11:52 | CT Scan Report ---
CT SCAN OF THE CHEST WITH IV CONTRAST CLINICAL HISTORY: Hematemesis. Chest pain. COMPARISON STUDY: Chest radiograph June 20, 2022. TECHNIQUE: Following the IV administration of 94 cc of Optiray 320, CT scan of the thorax was perform ed from the thoracic inlet to the upper abdomen. Images are reviewed in the axial, sagittal, and heena nal planes. IV contrast was administered without complication. A dose lowering technique was utilize d adhering to the principles of ALARA. Water-soluble contrast was ingested immediately prior to the C T. CT DOSE: 2482.75 mGy.cm FINDINGS: No pulmonary emboli are identified. There is no thoracic aortic dissection. Size of the hea rt is normal. There is no pericardial effusion. A small amount of pneumomediastinum is present. No or al contrast extravasation is identified. There is no pneumothorax or pleural effusion. Areas of mosai c attenuation within the lower lungs are present. Abdomen and pelvis CT will be reported separately. There is hepatic steatosis. IMPRESSION: 1. Small amount of pneumomediastinum. No oral contrast extravasation to suggest full-thickness esopha geal tear. No pneumothorax. 2. No consolidation to suggest pneumonia.. 3. Areas of mosaic attenuation within the lower lungs which may represent air trapping. ACT 112: Negative or not required by law. Electronically signed by: Neal Vogt M.D. 01/17/2025 11:50 AM
--- NOTE | 2025-01-17 12:24 | CT Scan Report ---
CT SCAN OF THE ABDOMEN AND PELVIS WITH IV CONTRAST CLINICAL HISTORY: Hematemesis. Abdominal pain. COMPARISON STUDY: CT of the abdomen and pelvis May 31, 2022. TECHNIQUE: Following the IV administration of 94 cc of Optiray 320, CT scan of the abdomen and pelvi s is performed from the lung bases to the proximal femora. Images are reviewed in the axial, sagittal , and coronal planes. IV contrast was administered without complication. A dose lowering technique wa s utilized adhering to the principles of ALARA. Water-soluble oral contrast was also administered. FINDINGS: A small amount of pneumomediastinum is better depicted on the chest CT. No pneumatosis, sil e air or portal venous gas is present. There is hepatic steatosis. The spleen, adrenal glands, kidney s and pancreas are unremarkable. There is no biliary or pancreatic ductal dilatation. Caliber and wal l thickness of small and large bowel are normal. The appendix is normal. Major vasculature is patent. There is no lymphadenopathy. There is no free fluid. IMPRESSION: 1. Small amount of pneumomediastinum better depicted on the chest CT which will be reported separatel y. 2. No acute process within the abdomen or pelvis. 3. Hepatic steatosis. 4. No bowel obstruction. No bowel wall thickening. Normal appendix. ACT 112: Negative or not required by law. Electronically signed by: Neal Vogt M.D. 01/17/2025 12:22 PM
[2025-01-17 12:28] LABS: INR 1.1 (0.9-1.1); Partial Thromboplastin Time 30 Seconds (21-31); Prothrombin Time 11.4 Seconds (9.0-12.0)
--- NOTE | 2025-01-17 13:12 | Gastrointestinal Consultation ---
Date of Consultation January 17, 2025 Assessment & Plan (1) Pneumomediastinum: Suspect secondary to vomiting possibly ruptured bleb. CT scan imaging does not show any extravasation of contrast from the esophagus. No fluid in the lungs. However most definitive test for esophageal injury would be an oral contrast esophagram. In light of the fact that he did have some hematemesis is important to exclude any events of esophageal injury. Will proceed with a oral esophagram as recommended to definitively exclude any significant leak. He appears stable no crepitus. Continue (2) Vomiting: Plan Reviewed imaging and history with Dr. Calvert. We will obtain a upper GI/barium swallow study to assess for further assessment. Continue IV PPI gtt. Will advise further pending results of that study. Supervising Physician Co-Signing Physician Notes I saw and examined this patient with our nurse practitioner and agree with her assessment and plan. Suspect secondary to vomiting possibly ruptured bleb. CT scan imaging does not show any extravasation of contrast from the esophagus. No fluid in the lungs. However most definitive test for esophageal injury would be an oral contrast esophagram. In light of the fact that he did have some hematemesis is important to exclude any events of esophageal injury. Will proceed with a oral esophagram as recommended to definitively exclude any significant leak. He appears stable no crepitus. Would continue empiric antibiotics and NPO until we see results of esophagram. History of Present Illness Reason for Consultation: Pneumomediastinum History of Present Illness Patient is a 29 yo male who presented to the ED due vomiting. He notes that he spontaneously began forcibly vomiting last evening. He estimates vomiting more than 20 times and notes he did see a significant amount of bright red blood. He denies any inciting event--no significant alcohol consumption per his reports, no viral GI or respiratory illness, no new meds, or unusual foods. He presented to the ED. He is noted to be hemodynamically stable. H/H 16.1/46.1. A Chest CT indicated: IMPRESSION: 1. Small amount of pneumomediastinum. No oral contrast extravasation to suggest full-thickness esophageal tear. No pneumothorax. 2. No consolidation to suggest pneumonia.. 3. Areas of mosaic attenuation within the lower lungs which may represent air trapping. A CT abdomen/pelvis indicated: 1. Small amount of pneumomediastinum better depicted on the chest CT which will be reported separately. 2. No acute process within the abdomen or pelvis. 3. Hepatic steatosis. 4. No bowel obstruction. No bowel wall thickening. Normal appendix. Patient notes a history of acid reflux. He notes he had an upper endoscopy last year in 2023. I do not have the results of this, but he reports it was normal. At the time of my evaluation he denies any pain. He notes no further hematemesis as he had last evening. Vomiting frequency has significantly reduced. A pulmonology consult is pending. Allergies Allergy/AdvReac Type Severity Reaction Status Date / Time No Known Allergies Allergy Unknown Verified 11/03/24 16:04 Home Medications Medication Instructions Recorded Confirmed Type aripiprazole 30 mg tablet 30 mg PO DAILY 11/03/24 11/03/24 History bupropion HCl 300 mg 24 hr tablet, 300 mg PO DAILY 11/03/24 11/03/24 History extended release oxcarbazepine 300 mg tablet 300 mg PO BID 11/03/24 11/03/24 History quetiapine 100 mg tablet 50 - 200 mg PO DIRECTED PRN 11/03/24 11/03/24 History NEEDED Patient History Medical History Intentional overdose Substance abuse Surgical History No pertinent past surgical history Family History Other No pertinent family history in first degree relatives Social History Smoking Status: Current every day smoker Tobacco Type: Cigarettes Do You Dip or Chew Tobacco: No; Hx Alcohol Use: Yes Alcohol type: hard liquor Hx Substance Use: Yes Last Used Substance: Just Prior to Arrival Preferred Language: Albanian Communication Ability: Unable Employee Communications Intern Required: No Beliefs That Will Affect Care: None marital status: Single Current Living Situation: Family Current Living Situation Comment: Lives with grandmother/father at times & his girlfriend "Audra" at others Feels Safe at Home: Yes Gender Identity: Male Assistive Devices: None Review of Systems Constitutional: no fever and no chills Respiratory: no cough and no dyspnea Cardiovascular: no chest pain Gastrointestinal: + nausea, + vomiting and + hematemesis; no abdominal pain Physical Exam Constitutional: well developed Respiratory: normal respiratory effort Cardiovascular: Rate/Rhythm: regular rate Gastrointestinal (Abdomen): normal bowel sounds, soft, nontender, no hepatosplenomegaly Psychiatric: Orientation: alert and oriented x 3 Results & Data Vital Signs (Past 12 Hours) Vital Signs Temp Pulse Pulse Resp BP BP Pulse Ox 01/17/25 12:00 62 20 129/81 96 01/17/25 10:48 53 L 18 156/86 H 99 01/17/25 10:21 100 01/17/25 10:21 49 L 18 159/83 H 95 01/17/25 09:49 36.5 C 63 18 141/71 H 100 O2 Del Method 01/17/25 12:00 Room Air 01/17/25 10:48 01/17/25 10:21 01/17/25 10:21 01/17/25 09:49 Room Air PG Care Time/CCT Total # of Minutes Spent Total Time Spent with Patient: Total time spent is greater than 50% in coordination of care (as documented) at patient's floor/unit and/or counseling patient: Coding Level of Care Code 40491 IN/OBS CONSULT LVL 4,60M Diagnoses Pneumomediastinum J98.2 Vomiting R11.2 Nausea presence: with nausea Vomiting type: unspecified (2) Vomiting Nausea presence: with nausea Vomiting type: unspecified Qualified Code(s): R11.2 - Nausea with vomiting, unspecified
[2025-01-17] MEDS ORDERED: MoRPHine SULFATE 4 MG/ML 1 ML CARP\\VIAL IV PRN (13:17)
--- NOTE | 2025-01-17 13:51 | History & Physical Report ---
Date of Service January 17, 2025 Assessment & Plan (1) Hematemesis: (2) Persistent vomiting: (3) Pneumomediastinum: Plan: 29 year old male with history of depression presenting with nausea/vomiting, epigastric pain since last night. NAUSEA/VOMITING, HEMATEMESIS ABDOMINAL PAIN possible gastritis/PUD/Anita Rodriguez Tear - hemodynamically stable - CT abd/pelvis: 1. Small amount of pneumomediastinum better depicted on the chest CT which will be reported separately. 2. No acute process within the abdomen or pelvis. 3. Hepatic steatosis. 4. No bowel obstruction. No bowel wall thickening. Normal appendix. - Protonix drip, IV Fluids, NPO H&H q6h PRN morphine, Phenergan - GI consult PNEUMOMEDIASTINUM - likely from vomiting - on room air, no shortness of breath - Pulm Consulted DEPRESSION - mood stable - continue Abilify, Trileptal, Wellbutrin DVT prophylaxis SCDs Full Code Disposition lives at home plan of care discussed with patient in detail and at length all questions answered he is understanding, agreeable, comfortable with the plan of care History of Present Illness Chief Complaint: abdominal pain, nausea/vomiting since last night Primary Care Provider: NO PCP 29 year old male with history of depression presenting with nausea/vomiting, epigastric pain since last night. Patient states he had spaghetti around 9pm, and after about 15 minutes, developed nausea and vomiting. He subsequently developed epigastric pain- severe. Vomiting persisted- about 15-20X and he eventually noticed blood whenever he would vomit. At the ER, patient was received with stable VS. CT abd/pelvis: 1. Small amount of pneumomediastinum better depicted on the chest CT which will be reported separately. 2. No acute process within the abdomen or pelvis. 3. Hepatic steatosis. 4. No bowel obstruction. No bowel wall thickening. Normal appendix. CT chest: 1. Small amount of pneumomediastinum. No oral contrast extravasation to suggest full-thickness esophageal tear. No pneumothorax. 2. No consolidation to suggest pneumonia.. 3. Areas of mosaic attenuation within the lower lungs which may represent air trapping. On exam, patient still reports epigastric pain but no hematemesis while at the ER. no chest pain, dyspnea, palpitations, dizziness no other new symptoms Allergies Allergy/AdvReac Type Severity Reaction Status Date / Time No Known Allergies Allergy Unknown Verified 11/03/24 16:04 Home Medications Medication Instructions Recorded Confirmed Type aripiprazole 30 mg tablet 30 mg PO DAILY 11/03/24 11/03/24 History bupropion HCl 300 mg 24 hr tablet, 300 mg PO DAILY 11/03/24 11/03/24 History extended release oxcarbazepine 300 mg tablet 300 mg PO BID 11/03/24 11/03/24 History quetiapine 100 mg tablet 50 - 200 mg PO DIRECTED PRN 11/03/24 11/03/24 History NEEDED Past Med/Surg History Problem List (Updated 01/17/25 @ 13:45 by Abdelrahman Lee MD) Persistent vomiting Hematemesis Pneumomediastinum COVID-19 (Acute) Polysubstance overdose (Acute) Overdose (Acute) Tobacco abuse History of suicidal ideation Unresponsive episode (Acute) Opiate dependence, continuous (Acute) Major depressive disorder Aggressive behavior (Acute) Medical History Intentional overdose Substance abuse Surgical History No pertinent past surgical history Family History Other No pertinent family history in first degree relatives Social History Smoking Status: Current every day smoker Tobacco Type: Cigarettes Do You Dip or Chew Tobacco: No; Hx Alcohol Use: Yes Alcohol type: hard liquor Hx Substance Use: Yes Last Used Substance: Just Prior to Arrival Preferred Language: Syriac Communication Ability: Unable Nicu Rn Required: No Beliefs That Will Affect Care: None marital status: Single Current Living Situation: Family Current Living Situation Comment: Lives with grandmother/father at times & his girlfriend "Audra" at others Feels Safe at Home: Yes Gender Identity: Male Assistive Devices: None Review of Systems Review of Systems: all noted and negative except for above Physical Exam Physical Exam: General- oriented x 3, not in distress, speaks in sentences with no effort or accessory muscle use Eyes- anicteric Neck- no JVD Lungs- clear breath sounds bilaterally, no rales/wheezes Heart- normal rate, regular rhythm; no murmurs Abdomen- normal bowel sounds, nondistended, soft, moderate epigastric tenderness Extremities- no pretibial edema, no calf tenderness Neuro- alert, oriented x 3; no gross focal neurologic deficits Skin- warm & dry Results & Data Results & Data Vital Signs (Past 12 Hours) Vital Signs Temp Pulse Pulse Resp BP BP Pulse Ox 01/17/25 12:00 62 20 129/81 96 01/17/25 10:48 53 L 18 156/86 H 99 01/17/25 10:21 100 01/17/25 10:21 49 L 18 159/83 H 95 01/17/25 09:49 36.5 C 63 18 141/71 H 100 O2 Del Method 01/17/25 12:00 Room Air 01/17/25 10:48 01/17/25 10:21 01/17/25 10:21 01/17/25 09:49 Room Air all noted and reviewed including below Code Status & VTE Plan VTE Prophylaxis Plan VTE Prophylaxis will be ordered: Yes
[2025-01-17] MEDS: SUCRALFATE 1 GM/10 ML UDC PO ONE (14:21)
[2025-01-17] MEDS ORDERED: ACETAMINOPHEN 1,000 MG/100 ML VIAL IV PRN (15:28)
[2025-01-17 16:00] LABS: Hematocrit (blood only) 43.6 % (42.0-52.0); Hemoglobin 15.2 g/dl (14.0-18.0)
--- NOTE | 2025-01-17 17:27 | Pulmonary Consultation ---
Date of Consultation January 17, 2025 Assessment & Plan (1) Pneumomediastinum: Pneumomediastinum likely secondary to retching and vomiting. I suspect the cause of his retching and vomiting episodes is due to cyclic vomiting from marijuana use. Recommend obtaining urine drug screen and behavioral health consultation. The pneumomediastinum is quite small at this time and there are no clinical symptoms of pneumomediastinum at present. Recommend avoiding any heavy lifting and changes of barometric pressures for the next month. Continue supportive care as needed. Bronchoscopy is not indicated. (2) Tobacco abuse counseling: Patient smokes 1 pack of cigarettes a day. No interest in quitting. Smoking cessation aides offered. (3) Marijuana abuse: Highly suspicious for cyclical vomiting related to marijuana use. Prior urine tox screen was positive for THC although patient denies. Plan No further recommendation at this time. Please call with questions. Thank you. History of Present Illness Reason for Consultation: Pneumomediastinum Attending Physician: Abdelrahman Lee MD History of Present Illness 29-year-old male who presented to the ER with vomiting. Patient reports he vomited more than 20 times small amount of blood with vomiting. CT chest revealed mild air trapping and trace pneumomediastinum on my review. Prior toxicology reports indicated marijuana use, but the patient denies any history of marijuana use. He denies any history of alcohol abuse. Patient is reluctant to participate in history taking and will often closes the eyes and drifts off to sleep. He is saturating well on room air. He denies any chest pain, nausea at this time, shortness of breath, fevers or chills. Smokes 1 pack of cigarettes a day. Allergies Allergy/AdvReac Type Severity Reaction Status Date / Time No Known Allergies Allergy Unknown Verified 11/03/24 16:04 Home Medications Medication Instructions Recorded Confirmed Type aripiprazole 30 mg tablet 30 mg PO DAILY 11/03/24 11/03/24 History bupropion HCl 300 mg 24 hr tablet, 300 mg PO DAILY 11/03/24 11/03/24 History extended release oxcarbazepine 300 mg tablet 300 mg PO BID 11/03/24 11/03/24 History quetiapine 100 mg tablet 50 - 200 mg PO DIRECTED PRN 11/03/24 11/03/24 History NEEDED Patient History Medical History Intentional overdose Substance abuse Surgical History No pertinent past surgical history Family History Other No pertinent family history in first degree relatives Social History Smoking Status: Unknown if ever smoked Tobacco Type: Cigarettes Do You Dip or Chew Tobacco: No; Hx Alcohol Use: Yes Alcohol type: hard liquor Hx Substance Use: Yes Last Used Substance: Unknown Preferred Language: Italian Communication Ability: Effective 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 Patient is in no apparent distress. Patient is well-developed. Eyes: Pupils are equal round and reactive to light. Conjunctivae are normal. Anicteric sclera. Ears nose, mouth and throat: Deferred. Neck: Trachea is midline. Visual inspection is normal. No crepitus. Respiratory: Clear to auscultation bilaterally. No use of accessory muscles. No significant clubbing noted. Cardiovascular: Regular rate and rhythm. No murmurs. No edema. Gastrointestinal: Normal bowel sounds, soft, nontender and nondistended. No hepatosplenomegaly noted. Musculoskeletal: No cyanosis. Patient is able to move all extremities. Strength is 5 out of 5 in the upper and lower extremities. Skin: No rashes, warm dry and intact. Neurologic: No obvious focal neurological deficits seen. Psychiatric: Poor eye contact. Alert and oriented x 3. Results & Data Results & Data Vital Signs (Past 12 Hours) Vital Signs Temp Pulse Pulse Resp BP BP Pulse Ox 01/17/25 16:37 37.4 C 56 L 19 154/73 H 99 01/17/25 15:31 01/17/25 15:31 48 L 16 149/78 H 98 01/17/25 14:00 98 H 16 122/61 99 01/17/25 14:00 62 01/17/25 12:00 62 20 129/81 96 01/17/25 10:48 53 L 18 156/86 H 99 01/17/25 10:21 100 01/17/25 10:21 49 L 18 159/83 H 95 01/17/25 09:49 36.5 C 63 18 141/71 H 100 Pulse Ox O2 Del Method O2 Del Method 01/17/25 16:37 Room Air 01/17/25 15:31 98 Room Air 01/17/25 15:31 Room Air 01/17/25 14:00 Room Air 01/17/25 14:00 01/17/25 12:00 Room Air 01/17/25 10:48 01/17/25 10:21 01/17/25 10:21 01/17/25 09:49 Room Air PG Care Time/CCT Total # of Minutes Spent Total Time Spent with Patient: Total time spent is greater than 50% in coordination of care (as documented) at patient's floor/unit and/or counseling patient: Coding Level of Care Code 21234 IN/OBS CONSULT LVL 2,35M Diagnoses Pneumomediastinum J98.2 Tobacco abuse counseling Z71.6 Marijuana abuse F12.10
--- NOTE | 2025-01-17 17:45 | Electrocardiogram Report ---
Test Reason : Blood Pressure : */* mmHG Vent. Rate : 58 BPM Atrial Rate : 58 BPM P-R Int : 144 ms QRS Dur : 96 ms QT Int : 436 ms P-R-T Axes : 55 79 56 degrees QTcB Int : 428 ms Sinus bradycardia with sinus arrhythmia Otherwise normal ECG When compared with ECG of 19-Mar-2022 05:00, No significant change was found Confirmed by Giacomo Manley ([id number]) on 01/17/2025 5:44:58 PM Referred By: REFERRED SELF Confirmed By: Giacomo Manley
[2025-01-17] MEDS: SODIUM CHLORIDE 0.9% 1,000 ML IV SCH (18:25)
[2025-01-17] MEDS: SUCRALFATE 1 GM/10 ML UDC PO SCH (18:26)
[2025-01-17] MEDS: PROMETHAZINE 12.5 MG/50.5 ML BAG IV PRN (21:28)
[2025-01-18 05:02] LABS: Appearance Urine Clear (Clear); Glucose Urine UA Negative (Negative)
--- NOTE | 2025-01-18 07:51 | XRay Report ---
EXAM: XR chest 1V portable CLINICAL HISTORY: FF UP, PNEUMOMEDIASTINUM TECHNIQUE: An X-ray image of the chest is obtained in PA projection. COMPARISON: 06/20/2022 CR. FINDINGS: Pulmonary Parenchyma: Lungs are clear bilaterally. No evidence of consolidation, collapse, or focal opacities. No pulmonary nodules are identified. No evidence of pleural effusion or pleural thickening. No evidence of pneumomediastinum seen. Heart and Mediastinum: Heart size and shape are normal. No mediastinal widening or masses. No hilar or mediastinal lymphadenopathy. Bony Thorax: Bony thorax appears intact without fractures or deformities. Soft Tissues: Soft tissues overlying the chest wall are unremarkable. IMPRESSION: 1. No radiographic evidence of pneumomediastium, if suspected CT chest study is advised. 2. No acute cardiopulmonary abnormalities are identified. 3. No interval changes. Electronically signed by Ashkan Moses 01-18-2025 07:51 AM
[2025-01-18] MEDS: ARIPiprazole 15 MG TAB PO SCH (09:02)
[2025-01-18 09:39] LABS: Hematocrit (blood only) 40.1 % (42.0-52.0); Hemoglobin 13.9 g/dl (14.0-18.0); Immature Granulocytes # (auto) 0.02 K/uL (0.01-0.20); Immature Granulocytes % (auto) 0.2 %; Mean Corpuscular Hemoglobin 30.1 pg (25.0-34.0); Mean Corpuscular Volume 86.8 fL (80.0-100.0); Platelet Count 222 K/uL (130-400); RDW Standard Deviation 38.6 fL (36.4-46.3); Red Blood Count 4.62 M/uL (4.70-6.10); White Blood Count 8.68 K/ul (4.8-10.8)
[2025-01-18 10:11] LABS: Alanine Aminotransferase 30.0 U/L (7-52); Albumin Globulin Ratio 1.8 (0.9-2); Alkaline Phosphatase 52.0 U/L (34-104); Anion Gap 7.0 (3-11); Bilirubin,Total 0.8 mg/dl (0.2-1.0); Blood Urea Nitrogen 9.0 mg/dl (6-23); Calcium 8.3 mg/dl (8.6-10.3); Carbon Dioxide 27.0 mmol/L (21-32); Chloride 107.0 mmol/L (98-107); Creatinine Clr Calc Pharmacy 188.7 ml/min; Globulin 2.1 gm/dl (2.5-4.0); Glucose 89.0 mg/dl (70-99(Fasting)); Potassium 3.4 mmol/L (3.5-5.1); Sodium 141.0 mmol/L (136-145); Total Protein 5.9 gm/dl (6.0-8.3)
--- NOTE | 2025-01-18 11:44 | Fluoroscopy Report ---
SINGLE CONTRAST UPPER GI SERIES CLINICAL HISTORY: Pneumomediastinum. Assess for esophageal rupture. COMPARISON STUDY: Chest CT dated 01/17/2025 TECHNIQUE: A single contrast upper GI series was performed. Overhead radiographs and spot images of the esophagus and stomach were obtained in multiple obliquities in the upright position. Approximatel y 200 cc of Optiray 320 was used for the procedure. FINDINGS: The patient swallowed the water soluble contrast without difficulty. The esophagus is structurally no rmal without evidence of intrinsic or extrinsic mass. Minimal dysmotility is observed. There is no ex traluminal contrast to indicate full-thickness esophageal tear. No gastroesophageal reflux was observ ed during the examination. The gastroesophageal junction distends normally. The stomach is normal in configuration. There is no evidence of mass lesion. The duodenal bulb and sw eep are normal as visualized. There is delayed emptying of contrast from the stomach. The duodenum op acified until 45 minutes after contrast ingestion. Fluoroscopy time: 1.32 minutes Ka,r: 56.3 mGy Fluoroscopic images: 14 IMPRESSION: 1. There is no extraluminal contrast identified to indicate full-thickness esophageal tear. 2. Minimal esophageal dysmotility. 3. There is delayed emptying of contrast from the stomach into the duodenum. If warranted this could be further assessed with a nuclear gastric emptying study. ACT 112: Negative or not required by law. Electronically signed by: Pietro Noriega M.D. 01/18/2025 11:42 AM
[2025-01-18 11:48] VITALS: BP 112/70; RESP 20; TEMP 98.1; O2SAT 98
--- NOTE | 2025-01-18 12:58 | Gastroenterology Progress Note ---
Date of Service January 18, 2025 Assessment & Plan (1) Pneumomediastinum: Plan: Suspect related to forceful vomiting. No esophageal tear noted on imaging. Pulmonology evaluated as well. (2) Abnormal finding on GI tract imaging: Plan: Patient should follow-up with his outpatient GI team who performed his recent EGD. They can consider repeat EGD & GES given upper GI findings of delayed empty ing. I do not have his outpatient GI notes to review the comprehensive studies he has had performed thus far, but would also have to consider if his n/v could also be related to marijuana use. Consider PPI on discharge. Admission and Anticipated Discharge Date Admission Date: January 17, 2025 Supervising Physician Co-Signing Physician Notes I saw and examined this patient with our nurse practitioner and agree with her assessment and plan. Discharge prior to my seeing him. Esophagram showed no leak. Clinically resolving pneumomediastinum. No signs of infection. Will need to follow-up for endoscopy in a few weeks with his local GI group. Subjective Patient is a 29 yo male with pneumoperitoneum. No evidence of esophageal tear on CT and upper GI imaging. Upper GI did demonstrate mild esophageal dysmotility and the possibility of delayed gastric emptying. Patient notes he is feeling well at present. No nausea or vomiting. Review of Systems Gastrointestinal: no abdominal pain, no heartburn, no change in bowel habits and no diarrhea/loose stools Physical Exam 2 Constitutional: well developed Respiratory: normal respiratory effort Gastrointestinal (Abdomen): normal bowel sounds, soft, nontender, no hepatosplenomegaly Psychiatric: Orientation: alert and oriented x 3 Results & Data Results & Data Vital Signs (Past 12 Hours) Vital Signs Temp Pulse Pulse Pulse Resp BP Pulse Ox 01/18/25 11:48 36.7 C 58 L 20 112/70 98 01/18/25 07:52 36.6 C 79 16 111/71 96 01/18/25 05:59 60 01/18/25 03:16 36.3 C L 53 L 18 136/71 96 O2 Del Method 01/18/25 11:48 Room Air 01/18/25 07:52 Room Air 01/18/25 05:59 01/18/25 03:16 Room Air Diagnostic Findings Chest X-Ray 01/18/25 08:00 EXAM: XR chest 1V portable CLINICAL HISTORY: FF UP, PNEUMOMEDIASTINUM TECHNIQUE: An X-ray image of the chest is obtained in PA projection. COMPARISON: 06/20/2022 CR. FINDINGS: Pulmonary Parenchyma: Lungs are clear bilaterally. No evidence of consolidation, collapse, or focal opacities. No pulmonary nodules are identified. No evidence of pleural effusion or pleural thickening. No evidence of pneumomediastinum seen. Heart and Mediastinum: Heart size and shape are normal. No mediastinal widening or masses. No hilar or mediastinal lymphadenopathy. Bony Thorax: Bony thorax appears intact without fractures or deformities. Soft Tissues: Soft tissues overlying the chest wall are unremarkable. IMPRESSION: 1. No radiographic evidence of pneumomediastium, if suspected CT chest study is advised. 2. No acute cardiopulmonary abnormalities are identified. 3. No interval changes. Electronically signed by Ashkan Moses 01-18-2025 07:51 AM Upper GI Series 01/18/25 13:07 SINGLE CONTRAST UPPER GI SERIES CLINICAL HISTORY: Pneumomediastinum. Assess for esophageal rupture. COMPARISON STUDY: Chest CT dated 01/17/2025 TECHNIQUE: A single contrast upper GI series was performed. Overhead radiographs and spot images of the esophagus and stomach were obtained in multiple obliquities in the upright position. Approximately 200 cc of Optiray 320 was used for the procedure. FINDINGS: The patient swallowed the water soluble contrast without difficulty. The esophagus is structurally normal without evidence of intrinsic or extrinsic mass. Minimal dysmotility is observed. There is no extraluminal contrast to indicate full-thickness esophageal tear. No gastroesophageal reflux was observed during the examination. The gastroesophageal junction distends normally. The stomach is normal in configuration. There is no evidence of mass lesion. The duodenal bulb and sweep are normal as visualized. There is delayed emptying of contrast from the stomach. The duodenum opacified until 45 minutes after contrast ingestion. Fluoroscopy time: 1.32 minutes Ka,r: 56.3 mGy Fluoroscopic images: 14 IMPRESSION: 1. There is no extraluminal contrast identified to indicate full-thickness esophageal tear. 2. Minimal esophageal dysmotility. 3. There is delayed emptying of contrast from the stomach into the duodenum. If warranted this could be further assessed with a nuclear gastric emptying study. ACT 112: Negative or not required by law. Electronically signed by: Pietro Noriega M.D. 01/18/2025 11:42 AM PG Care Time/CCT Total # of Minutes Spent Total Time Spent with Patient: Total time spent is greater than 50% in coordination of care (as documented) at patient's floor/unit and/or counseling patient: Coding Level of Care Code 37261 SUB INP/OBS CARE 2/35MIN Diagnoses Pneumomediastinum J98.2 Abnormal finding on GI tract imaging R93.3
[2025-01-18 14:33] VITALS: PULSE 53
[2025-01-18] MEDS ORDERED: ONDANSETRON 4 MG OD TAB PO PRN (14:38)
--- NOTE | 2025-01-18 14:52 | Discharge Summary ---
Discharge Summary Date of Service January 18, 2025 Principal Dx & Hospital Course #1 = Principal Diagnosis (1) Hematemesis: Hospital course: Patient was admitted to the medical service. He was placed on IV pantoprazole. He was given IV fluids. He was given antiemetics. He was made NPO. Pulmonary medicine was consulted. They did not feel the pneumomediastinum was significant at all. They recommended no heavy lifting for at least a month. GI was consulted. An upper GI was performed. There was no evidence of an esophageal tear. His diet was advanced. His IV it was discontinued. Pantoprazole was switched to p.o. He was placed on Carafate during the hospital stay. His activity was increased. He had no further nausea or vomiting. He was counseled 1 smoking cessation and marijuana cessation. Patient expressed understanding b ut was doubtful that he would stop it either. Patient was tolerating a low fiber diet at the time of discharge. He will follow-up with pulmonary medicine and GI. I encouraged him to find a primary care provider as well. On the day of discharge patient was ambulating and tolerating the diet as above. His vital signs are stable. Physical exam findings were stable. Patient will call or return if there is any change in his clinical course. (2) Persistent vomiting: (3) Pneumomediastinum: 29 year old male with history of depression presenting with nausea/vomiting, ep igastric pain since last night. NAUSEA/VOMITING, HEMATEMESIS ABDOMINAL PAIN possible gastritis/PUD/Anita Rodriguez Tear - hemodynamically stable - CT abd/pelvis: 1. Small amount of pneumomediastinum better depicted on the chest CT which will be reported separately. 2. No acute process within the abdomen or pelvis. 3. Hepatic steatosis. 4. No bowel obstruction. No bowel wall thickening. Normal appendix. - Protonix drip, IV Fluids, NPO H&H q6h PRN morphine, Phenergan - GI consult PNEUMOMEDIASTINUM - likely from vomiting - on room air, no shortness of breath - Pulm Consulted DEPRESSION - mood stable - continue Abilify, Trileptal, Wellbutrin DVT prophylaxis SCDs Full Code Disposition lives at home plan of care discussed with patient in detail and at length all questions answered he is understanding, agreeable, comfortable with the plan of care Notes For Next Care Provider F/U with GI and Pulmonary Medicine Medication Changes From Visit Protonix 40 mg daily Admission HPI Per Admitting Provider 29 year old male with history of depression presenting with nausea/vomiting, epigastric pain since last night. Patient states he had spaghetti around 9pm, and after about 15 minutes, d eveloped nausea and vomiting. He subsequently developed epigastric pain- severe. Vomiting persisted- about 15-20X and he eventually noticed blood whenever he would vomit. At the ER, patient was received with stable VS. CT abd/pelvis: 1. Small amount of pneumomediastinum better depicted on the chest CT which will be reported separately. 2. No acute process within the abdomen or pelvis. 3. Hepatic steatosis. 4. No bowel obstruction. No bowel wall thickening. Normal appendix. CT chest: 1. Small amount of pneumomediastinum. No oral contrast extravasation to suggest full-thickness esophageal tear. No pneumothorax. 2. No consolidation to suggest pneumonia.. 3. Areas of mosaic attenuation within the lower lungs which may represent air trapping. On exam, patient still reports epigastric pain but no hematemesis while at the ER. no chest pain, dyspnea, palpitations, dizziness no other new symptoms Discharge Exam General- adult Head- atraumatic Eyes- PERRL, EOMI, anicteric ENT- oropharynx clear Neck- supple, no JVD, no adenopathy, no thyromegaly; carotids +2/2, no bruits a ppreciated Lungs- clear to auscultation and percussion Heart- regular rhythm; no murmur, no gallop, no rub appreciated Abdomen- normal bowel sounds, soft, nontender, no masses or hepatosplenomegaly Extremities- no pretibial edema, no calf tenderness; peripheral pulses intact Neuro- alert, oriented x 3; PERRL, EOMI; no focal deficits Updated Medication List Medication Instructions Recorded Confirmed Type aripiprazole 30 mg tablet 30 mg PO DAILY 11/03/24 11/03/24 History bupropion HCl 300 mg 24 hr tablet, 300 mg PO DAILY 11/03/24 11/03/24 History extended release oxcarbazepine 300 mg tablet 300 mg PO BID 11/03/24 11/03/24 History quetiapine 100 mg tablet 50 - 200 mg PO DIRECTED PRN 11/03/24 11/03/24 History NEEDED pantoprazole 40 mg tablet,delayed 40 mg PO QAM #30 tabs 01/18/25 Rx release Hospital Stay Data Consultations 01/17/25 12:18 ED Decision to Admit Stat 01/17/25 15:28 Consult Gastroenterology Routine Consult Pulmonology Routine Diagnostic Imagining Performed 01/17/25 09:59 CT chest diagnostic w con Stat 01/17/25 10:01 CT abd pelvis IV con only Stat Pending Results Patient Have Any Pending Studies at Discharge: No Discharge Instructions Given to Patient (Per Discharging Provider) Please refrain from smoking tobacco and marijuana Total Time Total Time Spent Total Time Spent (In Minutes): 37 minutes spent in discharge planning and care coordination
== END 2025-01-18 14:50 | disposition home or self-care (01) | DRG 200 ==
LOC: ED 09:46 → EDINP 12:42 → SUATTDRO 12:42 → 2N 15:28